=== PATIENT | male | born 1955 | race Caucasian/White ===

== ENCOUNTER 2021-11-20 11:31 | Inpatient (IN) | payer MEDICARE, SELFPAY ==
[2021-11-20] VITALS (8 sets, daily range): BP systolic 109–144; BP diastolic 41–90; PULSE 47–61; RESP 15–20; TEMP 36.4–36.7; O2SAT 87–99; BMI 35.4; BMI 37.5
--- NOTE | ~2021-11-20 | XR_ITS ---
EXAMINATION: XR CHEST CLINICAL INFORMATION: Dyspnea. COMPARISON: None TECHNIQUE: AP view of the chest was obtained. FINDINGS: A right IJ large bore likely dialysis catheter terminates in the region of the right atrium. The cardiomediastinal silhouette is slightly prominent. There is a moderate size right pleural effusion with associated right lower lobe airspace opacities. The left lung is clear. No pneumothorax. No acute osseous abnormalities. Postsurgical changes in the right shoulder. XR/XR chest 1V IMPRESSION: Moderate size right pleural effusion with associated airspace opacities in the right lower lobe likely representing compressive atelectasis. Although, aspiration and infiltrate cannot be entirely excluded.
--- NOTE | ~2021-11-20 | US_ITS ---
EXAMINATION: ULTRASOUND-GUIDED RIGHT THORACENTESIS CLINICAL INFORMATION: Right-sided PE with effusion. COMPARISON: 11/22/2021 and 11/20/2021 TECHNIQUE: Ultrasound-guided right thoracentesis. FINDINGS: Informed consent was obtained from the patient prior to the procedure. During this process, the procedure and potential alternatives were explained, along with the intended outcome and benefits. The risks of the procedure, as well as the risk of not doing the procedure, were discussed. The patient was given the opportunity to ask questions regarding the procedure and appeared competent to make medical decisions. A signed consent form which documents this discussion was placed in the medical record. Ultrasound of the right lung demonstrated a moderate size pleural effusion which is partially loculated with multiple septations present. Using ultrasound guidance a 5-Irish Yueh needle was placed into the right pleural space and a total of 650 mL of clear yellow fluid was removed with samples being sent for laboratory studies. Patient tolerated the procedure without difficulty. The procedure was stopped when patient complained of pleuritic pain. No immediate post procedure pneumothorax was present. US/US thoracentesis IMPRESSION: Ultrasound-guided right thoracentesis with removal of 650 mL of fluid.
--- NOTE | ~2021-11-20 | XR_ITS ---
EXAMINATION: XR chest 1V CLINICAL INFORMATION: Right thoracentesis COMPARISON: 11/20/2021 TECHNIQUE: Portable chest x-ray marked 10:15 AM Tubes and lines: Right IJ central line catheter tip projecting over the right atrium unchanged. Lungs and pleura: Redemonstration of right pleural effusion, slightly decreased, there is no pneumothorax. Mild prominence of the pulmonary vasculature. Probably atelectasis at right lung base. Heart and mediastinum: Stable. Bones/soft tissue: Skeletal structures included are normal for patient's age. XR/XR chest 1V IMPRESSION: Slightly decreased right pleural effusion, no pneumothorax. Other findings are stable include, mild congestion, platelike atelectasis at right lung base and right central line catheter remain in place unchanged.
--- NOTE | 2021-11-20 11:52 | ECG_ITS ---
Test Reason : DYSPNEA Blood Pressure : / mmHG Vent. Rate : 054 BPM Atrial Rate : 066 BPM P-R Int : 000 ms QRS Dur : 114 ms QT Int : 560 ms P-R-T Axes : 000 -13 134 degrees QTc Int : 531 ms [employer] Afib Frequent PVCs in [facility] patterm. Minimal voltage criteria for LVH, may be normal variant ( Marinette product ) Prolonged QT Abnormal ECG No previous ECGs available Referred By: Shahnaz Villalta Electronically Signed By:Gonzalo Christian
--- NOTE | 2021-11-20 11:54 | ED_ITS ---
HPI - SOB/Dyspnea General Chief Complaint: Dyspnea Stated Complaint: SOB ON EXERTION FROM DIALYSIS (COMPLETED) Time Seen by Provider: 11/20/21 11:52 Source: patient and old records reviewed Mode of arrival: EMS Limitations: no limitations History of Present Illness HPI Narrative: 66 yo male was treated for COVID back in September had complicated course - prostate cancer renal failure now on HD T S - for the 5 days increased WOB, HD found him 87% on RA, he reports 5 lb weight gain and HD reprots taking off adequate fluids. MD elicited complaint: shortness of breath Pertinent past history: other (COVID end of September at [facility] completed remdesivir) Onset (ago): day(s) (5) Context: recent illness Timing: progressively worsening Severity: moderate Exacerbating factors: exertion Relieving factors: oxygen and rest Known history of: congestive heart failure Associated symptoms: cough Treatment prior to arrival: oxygen Related Data Allergies Allergy/AdvReac Type Severity Reaction Status Date / Time allopurinol Allergy Rash Verified 11/20/21 11:41 Review of Systems Review of Systems: Constitutional : No Fever, No Chills ENT/Mouth : No sore throat, No Rhinorrhea, No Swallowing Difficulty Eyes: No Eye Pain, No Swelling, No Redness Cardiovascular : No Chest Pain, positive SOB, No Orthopnea, no Edema Respiratory : No Cough, No Sputum, No Wheezing, positive dyspnea Gastrointestinal : No Nausea, No Vomiting, No Diarrhea, No abdominal Pain, No Hematochezia, No Melena Genitourinary : No Dysuria, No Urinary Frequency, pos Hematuria Musculoskeletal : No joint pain, No Myalgias Skin : No Skin Lesions, No rash Neuro : No Weakness, No Numbness, No Dizziness, No Headache Psych : No Anxiety/Panic, No Depression Heme/Lymph: No Bruising, No Lymphadenopathy Endocrine : No Polyuria, No Polydipsia All other systems reviewed and are negative [facility] Past Medical History Medical History A-fib CAD (coronary artery disease) CHF (congestive heart failure) Chronic kidney disease (CKD) COVID-19 Diabetes Gout HTN (hypertension) Prostate CA Social History Social History (Updated 11/20/21 @ 12:14 by Shahnaz Villalta DO) Patient Tobacco Use Status: Tobacco use Unknown Advance Directives: Yes Advance Directives Information Provided: Yes Advance Directives on File: No Physical Exam Vital Signs: Vital Signs: Last Vital Signs Temp 98.1 F 11/20/21 12:43 Pulse 61 11/20/21 12:43 Resp 15 11/20/21 12:43 BP 136/90 H 11/20/21 12:43 Pulse Ox 98 11/20/21 12:43 BMI result Body Mass Index 35.4 Appearance: Alert. Oriented X3. No acute distress. Eyes: Pupils equal, round and reactive to light. Pale conjunctiva ENT: Pharynx normal. Neck: Normal inspection. Neck supple. CVS: irregular heart rate and rhythm. Pulses normal. Chest permacath site c/d/i Respiratory: No respiratory distress. Breath sounds decreased R lower base Abdomen: Soft and nontender. Skin: Skin warm and dry. pale skin color. Normal skin turgor. Extremities: No lower extremity edema. No calf ttp Neuro: Oriented X 3. No motor deficit. No sensory deficit. Course Course Course Narrative: R sided effusion start on cefepime given airspace disease H/H above baseline - increase in WBC count, increased dyspnea had effusion noted back in September during COVID no xrays noted since then. MDM - SOB/Dyspnea MDM Narrative Medical decision making narrative: 66 yo male with CKD on HD T S, COVID Sep 2021 vaccinated x 2 now, at this time he reports 5 days of increased shortness of breath 5lb weight gain though no signs of LE edema he is pale will obtain labs, EKG, CXR for pneumonia, H/H for anemia, dispo per results and findings. doubt PE patient is anticoagulated Lab Data Result diagrams: 11/20/21 12:18 11/20/21 12:18 Labs: Lab Results 11/20/21 11/20/21 11/20/21 Range/Units 11:59 12:18 12:18 WBC 12.5 H (4.8-10.8) X10*3/uL RBC 2.39 L (4.60-5.80) X10*6/uL Hgb 7.7 L (14.0-18.0) g/dl Hct 25.0 L (42.0-52.0) % MCV 104.6 H (80.0-98.0) fL MCH 32.2 (27.0-33.0) pg MCHC 30.8 L (31.0-36.0) g/dl RDW 19.3 H (11.0-16.0) % Plt Count 329 D (160-400) X10*3/uL MPV 8.9 L (9.4-12.4) fL Immature Gran % (Auto) 0.6 H (0.0-0.4) % Neut % (Auto) 83.0 H (45-73) % Lymph % (Auto) 7.2 L (20-40) % [place] % (Auto) 7.2 (2-11) % Eos % (Auto) 1.4 (0-4) % Baso % (Auto) 0.6 (0-2) % Lymph # (Auto) 0.9 L (1.2-4.9) X10*3/uL [place] # (Auto) 0.9 (0.1-1.2) X10*3/uL Eos # (Auto) 0.2 (0.0-0.4) X10*3/uL Baso # (Auto) 0.1 (0.0-0.2) X10*3/uL Abs Immat Gran (auto) 0.08 H (0.00-0.03) X10*3/uL Absolute Neuts (auto) 10.4 H (2.0-8.3) x10*3/uL Absolute Nucleated RBC 0.000 (0.0-0.012) X10*3/uL Nucleated RBC % (auto) 0.0 (0.0-0.2) /100WBC PT (9.9-13.0) SEC INR (0.9-1.1) APTT (24.1-38.0) SEC Sodium 136 (135-145) mmol/L Potassium 4.3 (3.3-5.1) mmol/L Chloride 98 (96-108) mmol/L Carbon Dioxide 30 H (22-29) mmol/L Anion Gap 12 (12-20) BUN 12 D (9-16) mg/dL Creatinine 1.86 H (0.5-1.4) mg/dL Estim Creat Clear Calc 40.0 Estimated GFR 37 Random Glucose 116 H D (60-115) mg/dL Lactic Acid (0.5-2.0) mmol/L Calcium 9.0 D (8.4-10.2) mg/dL Magnesium 2.1 (1.6-2.6) mg/dL Total Bilirubin 0.5 (0.0-1.0) mg/dL Direct Bilirubin 0.2 (0.0-0.5) mg/dL AST 16 D (5-37) U/L ALT 11 (0-40) U/L Alkaline Phosphatase 84 D (39-117) U/L Troponin I High Sens (<3.5-35.0) ng/L B-Natriuretic Peptide (<100) pg/mL Total Protein 7.6 D (6.5-8.0) g/dL Albumin 3.1 L D (3.5-5.0) g/dL COVID-19 (LOPEZ) Negative (Negative) COVID-19 Clin Com See Note 11/20/21 11/20/21 11/20/21 Range/Units 12:18 12:25 12:25 WBC (4.8-10.8) X10*3/uL RBC (4.60-5.80) X10*6/uL Hgb (14.0-18.0) g/dl Hct (42.0-52.0) % MCV (80.0-98.0) fL MCH (27.0-33.0) pg MCHC (31.0-36.0) g/dl RDW (11.0-16.0) % Plt Count (160-400) X10*3/uL MPV (9.4-12.4) fL Immature Gran % (Auto) (0.0-0.4) % Neut % (Auto) (45-73) % Lymph % (Auto) (20-40) % Appling % (Auto) (2-11) % Eos % (Auto) (0-4) % Baso % (Auto) (0-2) % Lymph # (Auto) (1.2-4.9) X10*3/uL [place] # (Auto) (0.1-1.2) X10*3/uL Eos # (Auto) (0.0-0.4) X10*3/uL Baso # (Auto) (0.0-0.2) X10*3/uL Abs Immat Gran (auto) (0.00-0.03) X10*3/uL Absolute Neuts (auto) (2.0-8.3) x10*3/uL Absolute Nucleated RBC (0.0-0.012) X10*3/uL Nucleated RBC % (auto) (0.0-0.2) /100WBC PT 14.7 H (9.9-13.0) SEC INR 1.3 H (0.9-1.1) APTT 42.4 H (24.1-38.0) SEC Sodium (135-145) mmol/L Potassium (3.3-5.1) mmol/L Chloride (96-108) mmol/L Carbon Dioxide (22-29) mmol/L Anion Gap (12-20) BUN (9-16) mg/dL Creatinine (0.5-1.4) mg/dL Estim Creat Clear Calc Estimated GFR Random Glucose (60-115) mg/dL Lactic Acid 1.6 (0.5-2.0) mmol/L Calcium (8.4-10.2) mg/dL Magnesium (1.6-2.6) mg/dL Total Bilirubin (0.0-1.0) mg/dL Direct Bilirubin (0.0-0.5) mg/dL AST (5-37) U/L ALT (0-40) U/L Alkaline Phosphatase (39-117) U/L Troponin I High Sens (<3.5-35.0) ng/L B-Natriuretic Peptide 793 H (<100) pg/mL Total Protein (6.5-8.0) g/dL Albumin (3.5-5.0) g/dL COVID-19 (LOPEZ) (Negative) COVID-19 Clin Com 11/20/21 Range/Units 12:25 WBC (4.8-10.8) X10*3/uL RBC (4.60-5.80) X10*6/uL Hgb (14.0-18.0) g/dl Hct (42.0-52.0) % MCV (80.0-98.0) fL MCH (27.0-33.0) pg MCHC (31.0-36.0) g/dl RDW (11.0-16.0) % Plt Count (160-400) X10*3/uL MPV (9.4-12.4) fL Immature Gran % (Auto) (0.0-0.4) % Neut % (Auto) (45-73) % Lymph % (Auto) (20-40) % Appling % (Auto) (2-11) % Eos % (Auto) (0-4) % Baso % (Auto) (0-2) % Lymph # (Auto) (1.2-4.9) X10*3/uL [place] # (Auto) (0.1-1.2) X10*3/uL Eos # (Auto) (0.0-0.4) X10*3/uL Baso # (Auto) (0.0-0.2) X10*3/uL Abs Immat Gran (auto) (0.00-0.03) X10*3/uL Absolute Neuts (auto) (2.0-8.3) x10*3/uL Absolute Nucleated RBC (0.0-0.012) X10*3/uL Nucleated RBC % (auto) (0.0-0.2) /100WBC PT (9.9-13.0) SEC INR (0.9-1.1) APTT (24.1-38.0) SEC Sodium (135-145) mmol/L Potassium (3.3-5.1) mmol/L Chloride (96-108) mmol/L Carbon Dioxide (22-29) mmol/L Anion Gap (12-20) BUN (9-16) mg/dL Creatinine (0.5-1.4) mg/dL Estim Creat Clear Calc Estimated GFR Random Glucose (60-115) mg/dL Lactic Acid (0.5-2.0) mmol/L Calcium (8.4-10.2) mg/dL Magnesium (1.6-2.6) mg/dL Total Bilirubin (0.0-1.0) mg/dL Direct Bilirubin (0.0-0.5) mg/dL AST (5-37) U/L ALT (0-40) U/L Alkaline Phosphatase (39-117) U/L Troponin I High Sens 20.3 (<3.5-35.0) ng/L B-Natriuretic Peptide (<100) pg/mL Total Protein (6.5-8.0) g/dL Albumin (3.5-5.0) g/dL COVID-19 (LOPEZ) (Negative) COVID-19 Clin Com ECG Data Attestation: I personally reviewed and interpreted this ECG as follows: ECG interpretation date: 11/20/21 ECG interpretation time: 12:45 Interpretation: Rate: 54 Rhythm: afib with frequent PVCs [place]: normal Normal P waves. Normal NIRALI. Normal QRS complex. ST T wave : nonspecific no JOCELYNE qTC: prolonged prior studies: no prior The study has been interpreted contemporaneously by me. . Discharge Plan Discharge Clinical Impression: Pleural effusion Anemia Qualifiers: Anemia type: due to chronic kidney disease Chronic kidney disease stage: on chronic dialysis Qualified Code(s): N18.6 - End stage renal disease Pneumonia Qualifiers: Pneumonia type: due to unspecified organism Laterality: right Lung location: lower lobe of lung Qualified Code(s): J18.9 - Pneumonia, unspecified organism Patient Disposition: Admitted As Inpatient
[2021-11-20 12:22] LABS: COVID-19 Test Negative (Negative)
[2021-11-20 12:23] LABS: MANUAL DIFF FLAG NO
[2021-11-20 12:27] LABS: Basophils Absolute Auto 0.1 X10*3/uL (0.0-0.2); Basophils Percent Auto 0.6 % (0-2); Eosinophils Absolute Auto 0.2 X10*3/uL (0.0-0.4); Eosinophils Percent Auto 1.4 % (0-4); Hemoglobin 7.7 g/dl (14.0-18.0); Imm Gran Abs Auto 0.08 X10*3/uL (0.00-0.03); Imm Gran Pct Auto 0.6 % (0.0-0.4); Lymphocytes Absolute Auto 0.9 X10*3/uL (1.2-4.9); Lymphocytes Percent Auto 7.2 % (20-40); Mean Corpuscular HGB Conc 30.8 g/dl (31.0-36.0); Mean Corpuscular Hemoglobin 32.2 pg (27.0-33.0); Mean Corpuscular Volume 104.6 fL (80.0-98.0); Mean Platelet Volume 8.9 fL (9.4-12.4); Monocytes Absolute Auto 0.9 X10*3/uL (0.1-1.2); Monocytes Percent Auto 7.2 % (2-11); Neutrophils Absolute Auto 10.4 x10*3/uL (2.0-8.3); Platelet Count 329 X10*3/uL (160-400); Red Blood Count 2.39 X10*6/uL (4.60-5.80); Red Cell Distribution Width 19.3 % (11.0-16.0); White Blood Count 12.5 X10*3/uL (4.8-10.8)
[2021-11-20 12:35] LABS: INTERNATIONAL NORM RATIO 1.3 (0.9-1.1); Prothrombin Time 14.7 SEC (9.9-13.0)
[2021-11-20 12:37] LABS: Partial Thromboplastin Time 42.4 SEC (24.1-38.0)
[2021-11-20 12:44] LABS: Alanine Aminotransferase 11 U/L (0-40); Albumin Level 3.1 g/dL (3.5-5.0); Alkaline Phosphatase 84 U/L (39-117); Anion Gap 12 (12-20); Aspartate Amino Transferase 16 U/L (5-37); Bilirubin Direct 0.2 mg/dL (0.0-0.5); Bilirubin Total 0.5 mg/dL (0.0-1.0); Blood Urea Nitrogen 12 mg/dL (9-16); Carbon Dioxide 30 mmol/L (22-29); Chloride 98 mmol/L (96-108); Estimated Glomerular Filt Rate 37; Glucose Random 116 mg/dL (60-115); Magnesium 2.1 mg/dL (1.6-2.6); Potassium 4.3 mmol/L (3.3-5.1); Sodium 136 mmol/L (135-145); Total Protein 7.6 g/dL (6.5-8.0)
[2021-11-20 12:45] LABS: Lactic Acid 1.6 mmol/L (0.5-2.0)
[2021-11-20 12:51] LABS: B Type Natriuretic Peptide 793 pg/mL (<100); Troponin-I High Sensitivity 20.3 ng/L (<3.5-35.0)
--- NOTE | 2021-11-20 13:32 | PHA.MEDREC ---
Pharmacy Consult ? Medication Reconciliation Pharmacy has completed the medication reconciliation. Spoke with patient's nurse Lashaun Juan [phone] who has able to confirm all patient medications. An gutiérrez, PharmD
--- NOTE | 2021-11-20 13:33 | PC.NURSE ---
Update to [facility]asha[facility] [phone]
[2021-11-20] MEDS: cefEPime HCl 2 GM in 0.9 % Sodium Chloride 50 ML IV (13:53)
--- NOTE | 2021-11-20 13:53 | PC.NURSE ---
no complaints. aware of plan of care. skin pwd. plan is for admission and IR tomorrow. unlabroed resp.
--- NOTE | 2021-11-20 15:35 | P.HPHOSP_ITS ---
History of Present Illness Date of Service: 11/20/21 Chief Complaint: shortness of breath a 66 years old male with PMH of AFib, CAD, CHF, ESRD on HD who presents to the hospital with a complaint of shortness of breath for the last 5 days. He is reporting that he has dyspnea on exertion associated with chest tightness. Denies any palpitation, chest pain, nausea or vomiting or change in bowel habit. He reports he is doing dialysis 3 times TTS as he went in earlier today and they removed extra fluids but after walking few steps he fell the dyspnea again and decided to come to the hospital for further evaluation. The emergency an x-ray was significant for moderate-size pleural effusion the right size with associated atelectasis. Denies any fever, chills or cough. Admitted for further evaluation and treatment. Review of Systems Review of Systems: No fever, chills or weakness No chest pain, palpitation Shortness of breath with ambulation No abdominal pain, nausea or vomiting No urinary symptoms No any rash or wounds PMFSH Medical History A-fib CAD (coronary artery disease) CHF (congestive heart failure) Chronic kidney disease (CKD) COVID-19 Diabetes Gout HTN (hypertension) Prostate CA Pertinent family history: HTN in mother Social History Alcohol intake: never Patient Tobacco Use Status: Tobacco use Unknown Use of substances other than those prescribed or required for medical reasons: No Advance Directives: Yes Advance Directives Information Provided: Yes Advance Directives on File: No Meds Allergies Allergy/AdvReac Type Severity Reaction Status Date / Time allopurinol Allergy Rash Verified 11/20/21 11:41 Active Medications: Current Medications Acetaminophen (Acetaminophen 325 Mg Tablet) 650 mg PO Q6H PRN PRN Reason: Pain, Mild (Pain Scale 1-3) Albuterol Sulfate (Albuterol Sulfate 90 Mcg 8 Gm Inhaler) 2 puff INHALE Q6H PRN PRN Reason: Wheezing Amlodipine Besylate (Amlodipine Besylate 2.5 Mg Tablet) 7.5 mg PO DAILY MARCOS; Protocol Cyanocobalamin (Cyanocobalamin (Vitamin B-12) 1,000 Mcg Tablet) 1,000 mcg PO DAILY [facility]OS Duloxetine HCl (Duloxetine Hcl 20 Mg Capsule.) 20 mg PO DAILY [facility] Enoxaparin Sodium (Enoxaparin Sodium 40 Mg/0.4 Ml Syringe) 45 mg SUBCUT Q12H [facility] Insulin Human Lispro (Insulin Lispro 100 Unit/Ml 3 Ml Vial) 0 unit SUBCUT QIDACHS [facility]; Protocol Multivitamins/Vitamin C (Multivitamin Tablet) 1 tab PO DAILY [facility] Ondansetron HCl (Ondansetron Hcl 4 Mg/2 Ml Vial) 4 mg IVPUSH Q8H PRN PRN Reason: Nausea and Vomiting Pharmacy Consult (Consult Rx Perform Med Rec) 1 each MISCELLANE ONCE PRN PRN Reason: Consult order Senna (Sennosides 8.6 Mg Tablet) 8.6 mg PO DAILY [facility] Sevelamer Carbonate (Sevelamer Carbonate Tablet 800 Mg Tablet) 1,600 mg PO TID [facility] Sodium Chloride (0.9 % Sodium Chloride Flush 3 Ml Syringe) 3 ml IVFLUSH QSHIFT [facility] Home Medications Medication Instructions Recorded Confirmed Last Taken Type acetaminophen 325 mg tablet 650 mg PO Q6H PRN 11/20/21 11/20/21 11/19/21 History albuterol sulfate 90 mcg/actuation 2 puff INHALATION Q6H PRN 11/20/21 11/20/21 11/19/21 History aerosol inhaler (ProAir HFA) amlodipine 5 mg tablet 7.5 mg PO DAILY 11/20/21 11/20/21 11/19/21 History apixaban 2.5 mg tablet (Eliquis) 2.5 mg PO BID 11/20/21 11/20/21 11/19/21 History cholecalciferol (vitamin D3) 1,250 1 cap PO SA 11/20/21 11/20/21 11/19/21 History mcg (50,000 unit) capsule cyanocobalamin (vitamin B-12) 1,000 mcg PO DAILY 11/20/21 11/20/21 11/19/21 History 1,000 mcg tablet duloxetine 20 mg capsule,delayed 20 mg PO DAILY 11/20/21 11/20/21 11/19/21 History release (Cymbalta) febuxostat 40 mg tablet (Uloric) 40 mg PO DAILY 11/20/21 11/20/21 11/19/21 History insulin lispro 100 unit/mL 1 sliding scale dose SUBCUT 11/20/21 11/20/21 11/19/21 History subcutaneous pen USEASDIRECTD sennosides 8.6 mg tablet (senna) 8.6 mg PO DAILY 11/20/21 11/20/21 11/19/21 History sevelamer carbonate 800 mg tablet 1,600 mg PO TID 11/20/21 11/20/21 11/19/21 History vitamin B complex and vitamin C 1 cap PO DAILY 11/20/21 11/20/21 11/19/21 History no.20-folic acid 1 mg capsule Physical Exam Vital Signs and Narrative: Vital Signs: Last Vital Signs Temp 97.9 F 11/20/21 15:09 Pulse 47 L 11/20/21 15:09 Resp 18 11/20/21 15:09 BP 130/41 L 11/20/21 15:09 Pulse Ox 91 L 11/20/21 14:20 BMI result Body Mass Index 35.4 Const: Other: Constitutional : Alert, oriented, not in distress Neck : Normal inspection, Supple Cardiovascular : RRR, S1 S2, no lower extremity edema Respiratory : good air entry bilaterally but decreased in the right lower lung with dullness on percussion Gastrointestinal: soft, lax, Normal bowel sounds, Non tender Skin : Warm, Dry, dialysis catheter on the chest wall with no surrounding erythema Neurological : Alert & oriented x3, No focal deficit Results Labs CBC and Chem 7: 11/20/21 12:18 11/20/21 12:18 Labs: Laboratory Results - last 24 hr 11/20/21 11/20/21 11/20/21 11:59 12:18 12:18 MCV 104.6 H MCH 32.2 MCHC 30.8 L RDW 19.3 H Plt Count 329 D MPV 8.9 L Immature Gran % (Auto) 0.6 H Neut % (Auto) 83.0 H Lymph % (Auto) 7.2 L [place] % (Auto) 7.2 Eos % (Auto) 1.4 Baso % (Auto) 0.6 Lymph # (Auto) 0.9 L [place] # (Auto) 0.9 Eos # (Auto) 0.2 Baso # (Auto) 0.1 Abs Immat Gran (auto) 0.08 H Absolute Neuts (auto) 10.4 H Absolute Nucleated RBC 0.000 Nucleated RBC % (auto) 0.0 PT INR APTT Anion Gap 12 Estim Creat Clear Calc 40.0 Estimated GFR 37 Random Glucose 116 H D Lactic Acid Calcium 9.0 D Magnesium 2.1 Total Bilirubin 0.5 Direct Bilirubin 0.2 AST 16 D ALT 11 Alkaline Phosphatase 84 D Troponin I High Sens B-Natriuretic Peptide Total Protein 7.6 D Albumin 3.1 L D COVID-19 ([facility]OPE[facility]) Negative COVID-19 Clin Com See Note Blood Type Antibody Screen 11/20/21 11/20/21 11/20/21 12:18 12:25 12:25 MCV MCH MCHC RDW Plt Count MPV Immature Gran % (Auto) Neut % (Auto) Lymph % (Auto) [place] % (Auto) Eos % (Auto) Baso % (Auto) Lymph # (Auto) [place] # (Auto) Eos # (Auto) Baso # (Auto) Abs Immat Gran (auto) Absolute Neuts (auto) Absolute Nucleated RBC Nucleated RBC % (auto) PT 14.7 H INR 1.3 H APTT 42.4 H Anion Gap Estim Creat Clear Calc Estimated GFR Random Glucose Lactic Acid 1.6 Calcium Magnesium Total Bilirubin Direct Bilirubin AST ALT Alkaline Phosphatase Troponin I High Sens B-Natriuretic Peptide 793 H Total Protein Albumin COVID-19 (LOPEZ) COVID-19 Clin Com Blood Type Antibody Screen 11/20/21 11/20/21 12:25 12:58 MCV MCH MCHC RDW Plt Count MPV Immature Gran % (Auto) Neut % (Auto) Lymph % (Auto) [place] % (Auto) Eos % (Auto) Baso % (Auto) Lymph # (Auto) [place] # (Auto) Eos # (Auto) Baso # (Auto) Abs Immat Gran (auto) Absolute Neuts (auto) Absolute Nucleated RBC Nucleated RBC % (auto) PT INR APTT Anion Gap Estim Creat Clear Calc Estimated GFR Random Glucose Lactic Acid Calcium Magnesium Total Bilirubin Direct Bilirubin AST ALT Alkaline Phosphatase Troponin I High Sens 20.3 B-Natriuretic Peptide Total Protein Albumin COVID-19 (LOPEZ) COVID-19 Clin Com Blood Type A Positive Antibody Screen NEGATIVE Imaging Radiologist's Impressions: Impressions Chest X-Ray 11/20/21 12:03 IMPRESSION: Moderate size right pleural effusion with associated airspace opacities in the right lower lobe likely representing compressive atelectasis. Although, aspiration and infiltrate cannot be entirely excluded. Assessment and Plan (1) Pleural effusion: Status: Acute (2) Pneumonia: Qualifiers: Laterality: right Lung location: lower lobe of lung Pneumonia type: due to unspecified organism Qualified Code(s): J18.9 - Pneumonia, unspecified organism Status: Acute (3) Atelectasis: Status: Acute a 66 years old male with PMH of AFib, CAD, CHF, ESRD on HD who presents to the hospital with a complaint of shortness of breath for the last 5 days. Atelectasis, pneumonia 2/2 Pleural effusion Likely a result of renal failure and building up fluids Had dialysis done earlier this morning Started IV antibiotics To do thoracentesis Wednesday morning O2 supplement as needed ESRD on HD get Nephrology evaluation for HD consider extra HD for the pleural effusion diabetes Insulin, diabetic diet history of atrial fibrillation on Eliquis, to hold To use Lovenox or heparin for coverage HTN continue amlodipine DVT PPX Lovenox Quality Stroke Does the patient have a stroke diagnosis?: No VTE Prior VTE?: No VTE Risk Level:: Medical - moderate - high VTE Device Contraindication: Treatment Not Indicated VTE Drug Contraindication: N/A - Med Ordered
--- NOTE | 2021-11-20 15:42 | PC.NURSE ---
Dr. cMlean contacted this blurb writer seeking assistance with coordination of care related to lung effusion drainage. This blurb writer contacted Aimee Forman, Floor Plan Adjuster. Radiologist Dr. Jean reviewed patient's case and determined patient will need a thoracenthesis to treat lung effusion. Pt is known to be on Eliquis which was stopped with the 48 hour hang set to be 11/21/[address] Lee will plan to perform an ultrasound guided thoracenthesis the am of 11/22/21 with [place] orthopedic tech. Pt is booked for case. Will notify Dr. Mclean of plan.
[2021-11-20 17:27] LABS: INTERNATIONAL NORM RATIO 1.3 (0.9-1.1); Prothrombin Time 14.7 SEC (9.9-13.0)
[2021-11-20 17:30] LABS: PTT Heparin Drip 46.5 SEC (53-77.9)
--- NOTE | 2021-11-20 17:32 | PC.NURSE ---
iv infiltrated. abx had stopped. new line established and abx continues. pt has no complaints at this time. resting comfortably. transfered to hospital bed.
[2021-11-20] MEDS: Azithromycin 500 MG in 0.9 % Sodium Chloride 250 ML 125 MG IV (17:40)
[2021-11-20 18:28] LABS: Glucose, Whole Blood 100 mg/dL (60-115)
--- NOTE | 2021-11-20 18:37 | PC.NURSE ---
rn to rn with Disha on [facility]
[2021-11-20] MEDS: Heparin Sodium,Porcine/1/2NS 25,000 UNIT/250 ML IV.SOLN 12.73 UNIT IVCONT (18:57)
[2021-11-20 19:49] LABS: Glucose, Whole Blood 212 mg/dL (60-115)
[2021-11-20] MEDS: Insulin Lispro 100 UNIT/ML 3 ML VIAL SUBCUT (20:39)
[2021-11-20] MEDS: Sevelamer Carbonate Tablet 800 MG TABLET 1600 MG PO (20:39)
[2021-11-21] VITALS (8 sets, daily range): BP systolic 116–144; BP diastolic 56–65; PULSE 43–58; RESP 18–28; TEMP 36.6–37.3; O2SAT 95–99; BMI 37.5
[2021-11-21] MEDS: 0.9 % Sodium Chloride Flush 3 ML SYRINGE IVFLUSH ×4 (00:23→21:11)
[2021-11-21 01:26] LABS: PTT Heparin Drip 55.9 SEC (53-77.9)
[2021-11-21 07:33] LABS: Glucose, Whole Blood 83 mg/dL (60-115)
[2021-11-21 07:45] LABS: INTERNATIONAL NORM RATIO 1.2 (0.9-1.1); Prothrombin Time 14.2 SEC (9.9-13.0)
[2021-11-21 07:48] LABS: PTT Heparin Drip 44.3 SEC (53-77.9)
[2021-11-21 08:05] LABS: Anion Gap 15 (12-20); Blood Urea Nitrogen 36 mg/dL (9-16); Calcium 8.4 mg/dL (8.4-10.2); Carbon Dioxide 27 mmol/L (22-29); Chloride 101 mmol/L (96-108); Creatinine Clr Calc Pharmacy 19.1; Estimated Glomerular Filt Rate 15; Glucose Random 89 mg/dL (60-115); Potassium 4.6 mmol/L (3.3-5.1); Sodium 138 mmol/L (135-145)
[2021-11-21] MEDS: Heparin Sodium,Porcine 5,000 UNIT/ML VIAL 3600 UNIT IVPUSH (08:18)
[2021-11-21] MEDS: DULoxetine HCl 20 MG CAPSULE.DR PO (09:13)
[2021-11-21] MEDS: Sennosides 8.6 MG TABLET PO (09:13)
[2021-11-21] MEDS: Multivitamin TABLET 1 TAB PO (09:13)
[2021-11-21] MEDS: amLODIPine Besylate 2.5 MG TABLET 7.5 MG PO (09:13)
[2021-11-21] MEDS: Sevelamer Carbonate Tablet 800 MG TABLET 1600 MG PO ×3 (09:13→21:10)
[2021-11-21] MEDS: Cyanocobalamin (Vitamin B-12) 1,000 MCG TABLET 1000 MCG PO (09:13)
--- NOTE | 2021-11-21 10:40 | PC.NURSE ---
Skin/wound assessment completed today. Patient has stage 2 pressure injuries to coccyx and left buttocks. Cleanse with normal saline, Triad applied and covered with foam dressing. Triad also applied to redness around anus and in groin. No other skin issues noted at this time.
--- NOTE | 2021-11-21 11:03 | HO.PM.IMPN ---
Subjective Subjective Date of Service: 11/21/21 Interval History: the patient was seen and evaluated this morning Laying in bed, Still complaining of dyspnea on exertion Next dialysis tomorrow Denies any fever, chills or chest pain No reported other overnight events. Review of Systems No fever, chills or weakness No chest pain, palpitation Shortness of breath with ambulation No abdominal pain, nausea or vomiting No urinary symptoms No any rash or wounds Physical Exam Vital Signs: Vital Signs: Last Vital Signs Temp 98.4 F 11/21/21 07:00 Pulse 48 L 11/21/21 07:00 Resp 20 11/21/21 07:00 BP 117/56 L 11/21/21 07:00 Pulse Ox 96 11/21/21 07:00 BMI result Body Mass Index 37.5 Const: Other: Constitutional : Alert, oriented, not in distress Neck : Normal inspection, Supple Cardiovascular : RRR, S1 S2, no lower extremity edema Respiratory : good air entry bilaterally but decreased in the right lower lung with dullness on percussion Gastrointestinal: soft, lax, Normal bowel sounds, Non tender Skin : Warm, Dry, dialysis catheter on the chest wall with no surrounding erythema Neurological : Alert & oriented x3, No focal deficit Objective Data Active Medications Acetaminophen (Acetaminophen 325 Mg Tablet) 650 mg PO Q6H PRN PRN Reason: Pain, Mild (Pain Scale 1-3) Albuterol Sulfate (Albuterol Sulfate 90 Mcg 8 Gm Inhaler) 2 puff INHALE Q6H PRN PRN Reason: Wheezing Amlodipine Besylate (Amlodipine Besylate 2.5 Mg Tablet) 7.5 mg PO DAILY [facility]; Protocol Last Admin: 11/21/21 09:13 Dose: 7.5 mg Documented by: DEIRDRE Cyanocobalamin (Cyanocobalamin (Vitamin B-12) 1,000 Mcg Tablet) 1,000 mcg PO DAILY [facility] Last Admin: 11/21/21 09:13 Dose: 1,000 mcg Documented by: DEIRDRE Duloxetine HCl (Duloxetine Hcl 20 Mg Capsule.) 20 mg PO DAILY [facility] Last Admin: 11/21/21 09:13 Dose: 20 mg Documented by: DEIRDER Heparin Sodium (Porcine) (Heparin Sodium,Porcine 5,000 Unit/Ml Vial) 3,600 unit 40 unit/kg (3600 unit) IVPUSH PROTOCOL BOLUS PRN; Protocol PRN Reason: 40 unit/kg - Heparin Protocol Last Admin: 11/21/21 08:18 Dose: 3,600 unit Documented by: DEIRDRE Heparin Sodium (Porcine) (Heparin Sodium,Porcine 5,000 Unit/Ml Vial) 7,300 unit 80 unit/kg (7300 unit) IVPUSH PROTOCOL BOLUS PRN; Protocol PRN Reason: 80 unit/kg - Heparin Protocol Azithromycin 500 mg/ Sodium (Chloride) 250 mls @ 125 mls/hr IV Q24H [facility] Last Infusion: 11/20/21 20:00 Dose: 0 mls/hr Documented by: VICTOR MANUEL Ceftriaxone Sodium 1 gm/ (Sodium Chloride) 50 mls @ 100 mls/hr IV Q24H [facility] Heparin Sodium/Sodium Chloride () 25,000 unit in 250 mls @ 0 mls/hr IVCONT .Q0M [facility]; Protocol Stop: 11/22/21 10:00 Last Titration: 11/21/21 08:18 Dose: 16 units/kg/hr, 14.54 mls/hr Documented by: DEIRDRE Cosigned by: JULIAN Insulin Human Lispro (Insulin Lispro 100 Unit/Ml 3 Ml Vial) 0 unit SUBCUT QIDACHS [facility]; Protocol Last Admin: 11/21/21 08:08 Dose: Not Given Documented by: DEIRDRE Non-Admin Reason: No Insulin Coverage Multivitamins/Vitamin C (Multivitamin Tablet) 1 tab PO DAILY [facility] Last Admin: 11/21/21 09:13 Dose: 1 tab Documented by: DEIRDRE Ondansetron HCl (Ondansetron Hcl 4 Mg/2 Ml Vial) 4 mg IVPUSH Q8H PRN PRN Reason: Nausea and Vomiting Pharmacy Consult (Consult Rx Perform Med Rec) 1 each MISCELLANE ONCE PRN PRN Reason: Consult order Senna (Sennosides 8.6 Mg Tablet) 8.6 mg PO DAILY [facility] Last Admin: 11/21/21 09:13 Dose: 8.6 mg Documented by: DEIRDRE Sevelamer Carbonate (Sevelamer Carbonate Tablet 800 Mg Tablet) 1,600 mg PO TID [facility] Last Admin: 11/21/21 09:13 Dose: 1,600 mg Documented by: DEIRDRE Sodium Chloride (0.9 % Sodium Chloride Flush 3 Ml Syringe) 3 ml IVFLUSH QSHIFT [facility] Last Admin: 11/21/21 09:13 Dose: 3 ml Documented by: DEIRDRE Labs CBC & Chem 7: 11/20/21 12:18 11/21/21 07:07 Labs: Laboratory Results - last 24 hr 11/20/21 11/20/21 11/20/21 11:59 12:18 12:18 MCV 104.6 H MCH 32.2 MCHC 30.8 L RDW 19.3 H Plt Count 329 D MPV 8.9 L Immature Gran % (Auto) 0.6 H Neut % (Auto) 83.0 H Lymph % (Auto) 7.2 L Burnet % (Auto) 7.2 Eos % (Auto) 1.4 Baso % (Auto) 0.6 Lymph # (Auto) 0.9 L Burnet # (Auto) 0.9 Eos # (Auto) 0.2 Baso # (Auto) 0.1 Abs Immat Gran (auto) 0.08 H Absolute Neuts (auto) 10.4 H Absolute Nucleated RBC 0.000 Nucleated RBC % (auto) 0.0 PT INR APTT PTT (Heparin Protocol) Anion Gap 12 Estim Creat Clear Calc 40.0 Estimated GFR 37 POC Glucose Random Glucose 116 H D Lactic Acid Calcium 9.0 D Magnesium 2.1 Total Bilirubin 0.5 Direct Bilirubin 0.2 AST 16 D ALT 11 Alkaline Phosphatase 84 D Troponin I High Sens B-Natriuretic Peptide Total Protein 7.6 D Albumin 3.1 L D COVID-19 ([facility]) Negative COVID-19 Clin Com See Note Blood Type Antibody Screen 11/20/21 11/20/21 11/20/21 12:18 12:25 12:25 MCV MCH MCHC RDW Plt Count MPV Immature Gran % (Auto) Neut % (Auto) Lymph % (Auto) Burnet % (Auto) Eos % (Auto) Baso % (Auto) Lymph # (Auto) Burnet # (Auto) Eos # (Auto) Baso # (Auto) Abs Immat Gran (auto) Absolute Neuts (auto) Absolute Nucleated RBC Nucleated RBC % (auto) PT 14.7 H INR 1.3 H APTT 42.4 H PTT (Heparin Protocol) Anion Gap Estim Creat Clear Calc Estimated GFR POC Glucose Random Glucose Lactic Acid 1.6 Calcium Magnesium Total Bilirubin Direct Bilirubin AST ALT Alkaline Phosphatase Troponin I High Sens B-Natriuretic Peptide 793 H Total Protein Albumin COVID-19 ([facility]) COVID-19 [facility] Blood Type Antibody Screen 11/20/21 11/20/21 11/20/21 12:25 12:58 17:17 MCV MCH MCHC RDW Plt Count MPV Immature Gran % (Auto) Neut % (Auto) Lymph % (Auto) Burnet % (Auto) Eos % (Auto) Baso % (Auto) Lymph # (Auto) Burnet # (Auto) Eos # (Auto) Baso # (Auto) Abs Immat Gran (auto) Absolute Neuts (auto) Absolute Nucleated RBC Nucleated RBC % (auto) PT 14.7 H INR 1.3 H APTT PTT (Heparin Protocol) 46.5 L Anion Gap Estim Creat Clear Calc Estimated GFR POC Glucose Random Glucose Lactic Acid Calcium Magnesium Total Bilirubin Direct Bilirubin AST ALT Alkaline Phosphatase Troponin I High Sens 20.3 B-Natriuretic Peptide Total Protein Albumin COVID-19 ([facility]) [facility] Blood Type A Positive Antibody Screen NEGATIVE 11/20/21 11/20/21 11/21/21 18:23 19:45 00:59 MCV MCH MCHC RDW Plt Count MPV Immature Gran % (Auto) Neut % (Auto) Lymph % (Auto) Burnet % (Auto) Eos % (Auto) Baso % (Auto) Lymph # (Auto) Burnet # (Auto) Eos # (Auto) Baso # (Auto) Abs Immat Gran (auto) Absolute Neuts (auto) Absolute Nucleated RBC Nucleated RBC % (auto) PT INR APTT PTT (Heparin Protocol) 55.9 D Anion Gap Estim Creat Clear Calc Estimated GFR POC Glucose 100 212 H Random Glucose Lactic Acid Calcium Magnesium Total Bilirubin Direct Bilirubin AST ALT Alkaline Phosphatase Troponin I High Sens B-Natriuretic Peptide Total Protein Albumin COVID-19 ([facility]) COVID-19 [facility] Blood Type Antibody Screen 11/21/21 11/21/21 11/21/21 07:07 07:07 07:07 MCV MCH MCHC RDW Plt Count MPV Immature Gran % (Auto) Neut % (Auto) Lymph % (Auto) Burnet % (Auto) Eos % (Auto) Baso % (Auto) Lymph # (Auto) Burnet # (Auto) Eos # (Auto) Baso # (Auto) Abs Immat Gran (auto) Absolute Neuts (auto) Absolute Nucleated RBC Nucleated RBC % (auto) PT 14.2 H INR 1.2 H APTT PTT (Heparin Protocol) 44.3 L D Anion Gap 15 Estim Creat Clear Calc 19.1 Estimated GFR 15 POC Glucose Random Glucose 89 Lactic Acid Calcium 8.4 D Magnesium Total Bilirubin Direct Bilirubin AST ALT Alkaline Phosphatase Troponin I High Sens B-Natriuretic Peptide Total Protein Albumin COVID-19 ([facility]) COVID-19 [facility] Com Blood Type Antibody Screen 11/21/21 07:26 MCV MCH MCHC RDW Plt Count MPV Immature Gran % (Auto) Neut % (Auto) Lymph % (Auto) Burnet % (Auto) Eos % (Auto) Baso % (Auto) Lymph # (Auto) Burnet # (Auto) Eos # (Auto) Baso # (Auto) Abs Immat Gran (auto) Absolute Neuts (auto) Absolute Nucleated RBC Nucleated RBC % (auto) PT INR APTT PTT (Heparin Protocol) Anion Gap Estim Creat Clear Calc Estimated GFR POC Glucose 83 Random Glucose Lactic Acid Calcium Magnesium Total Bilirubin Direct Bilirubin AST ALT Alkaline Phosphatase Troponin I High Sens B-Natriuretic Peptide Total Protein Albumin COVID-19 ([facility]) COVID-19 Clin Com Blood Type Antibody Screen Assessment and Plan (1) Atelectasis: Status: Acute (2) Pleural effusion: Status: Acute (3) Pneumonia: Status: Acute Assessment and Plan: a 66 years old male with PMH of AFib, CAD, CHF, ESRD on HD who presents to the hospital with a complaint of shortness of breath for the last 5 days. Atelectasis, pneumonia 2/2 Pleural effusion Likely a result of renal failure and building up fluids Had dialysis done earlier this morning continue IV antibiotics To do thoracentesis Wednesday morning O2 supplement as needed ESRD on HD get Nephrology evaluation for HD consider extra HD for the pleural effusion diabetes Insulin, diabetic diet history of atrial fibrillation on Eliquis, to hold To use Lovenox or heparin for coverage HTN continue amlodipine DVT PPX Lovenox Quality Stroke Does the patient have a stroke diagnosis?: No VTE Prior VTE?: No VTE Risk Level:: Medical - moderate - high VTE Device Contraindication: Treatment Not Indicated VTE Drug Contraindication: N/A - Med Ordered
[2021-11-21 11:19] LABS: Glucose, Whole Blood 137 mg/dL (60-115)
--- NOTE | 2021-11-21 12:40 | MHC.CM.PN ---
CM MET WITH PT WHO REPORTS HE LIVES ALONE PT REPORTS HE IS ACTIVE WITH [facility] AND HAS A FRIEND THAT HELPS HIS OUT HE REPORTS HE USES A A WALKER AND ROLLATOR WHEN NEEDED PT REPORTS HIS PCP IS DICK THURMAN HE REPORTS HIS FRIEND WILL BRING IN HIS HCP IMM DELIVERED CURRENT DC PLAN IS HOME WITH RESUMPTION OF [facility] SERVICE S PT WILL ARRANGE HIS OWN TRANSPORTATION
[2021-11-21] MEDS: cefTRIAXone sodium 1 GM in 0.9 % Sodium Chloride 50 ML IV (12:58)
[2021-11-21] MEDS: Heparin Sodium,Porcine/1/2NS 25,000 UNIT/250 ML IV.SOLN 14.54 UNIT IVCONT (14:02)
[2021-11-21 14:54] LABS: PTT Heparin Drip 73.8 SEC (53-77.9)
--- NOTE | 2021-11-21 15:38 | MHC.CLN ---
NUTRITION NUTRITION CONSULT FOR SKIN/PRESSURE INJURIES. STAGE II TO LEFT BUTTOCK AND STAGE II TO COCCYX. ADDING GLUCERNA TID TO PROMOTE WOUND HEALING. SUPPLEMENT PROVIDES 710 KCAL, 30 G PROTEIN.
--- NOTE | 2021-11-21 15:42 | MHC.CLN ---
NUTRITION CONSULT FOR STAGE II PRESSURE INJURIES. RECEIVES HEMODIALYSIS. DIET CHANGED FOR DIALYSIS NEEDS TO: DIABETIC 1800 KCAL, 2 GRAM SODIUM, LOW POTASSIUM, LOW PHOSPHORUS. MONITOR INTAKE AND CONSIDER PROTEIN SUPPLEMENT IF EATING LESS THAT 50%.
[2021-11-21 16:08] LABS: Glucose, Whole Blood 123 mg/dL (60-115)
[2021-11-21] MEDS: Azithromycin 500 MG in 0.9 % Sodium Chloride 250 ML 125 MG IV (16:45)
--- NOTE | 2021-11-21 19:09 | PM.CNNEP ---
History of Present Illness Reason for Consult Consult date: 11/21/21 Chief Complaint Chief complaint: SOB History of Present Illness Narrative: 66 yr old man with ESRD HAs HD yesterday Comes in with dyspnea CXR shows pleural effusion WOrk up in progress Review of Systems Review of Systems No fever, chills or weakness No chest pain, palpitation Shortness of breath with ambulation No abdominal pain, nausea or vomiting No urinary symptoms No any rash or wounds PMFSH Past Medical History Medical History A-fib CAD (coronary artery disease) CHF (congestive heart failure) Chronic kidney disease (CKD) COVID-19 Diabetes Gout HTN (hypertension) Prostate CA Family History Pertinent family history: HTN in mother Social History Social History Household Members: None Household Members Other:: tenant next door Housing: House Do you presently have visiting nurse or other home services: Yes (visiting nurses set up) Alcohol intake: never Patient Tobacco Use Status: Tobacco use Unknown Advance Directives Date on File: 11/20/21 service: No Meds Allergies Allergy/AdvReac Type Severity Reaction Status Date / Time allopurinol Allergy Rash Verified 11/20/21 11:41 Active Medications: Current Medications Acetaminophen (Acetaminophen 325 Mg Tablet) 650 mg PO Q6H PRN PRN Reason: Pain, Mild (Pain Scale 1-3) Albuterol Sulfate (Albuterol Sulfate 90 Mcg 8 Gm Inhaler) 2 puff INHALE Q6H PRN PRN Reason: Wheezing Amlodipine Besylate (Amlodipine Besylate 2.5 Mg Tablet) 7.5 mg PO DAILY [facility]; Protocol Last Admin: 11/21/21 09:13 Dose: 7.5 mg Documented by: Cyanocobalamin (Cyanocobalamin (Vitamin B-12) 1,000 Mcg Tablet) 1,000 mcg PO DAILY [facility] Last Admin: 11/21/21 09:13 Dose: 1,000 mcg Documented by: Duloxetine HCl (Duloxetine Hcl 20 Mg Capsule.Dr) 20 mg PO DAILY [facility] Last Admin: 11/21/21 09:13 Dose: 20 mg Documented by: Heparin Sodium (Porcine) (Heparin Sodium,Porcine 5,000 Unit/Ml Vial) 3,600 unit 40 unit/kg (3600 unit) IVPUSH PROTOCOL BOLUS PRN; Protocol PRN Reason: 40 unit/kg - Heparin Protocol Last Admin: 11/21/21 08:18 Dose: 3,600 unit Documented by: Heparin Sodium (Porcine) (Heparin Sodium,Porcine 5,000 Unit/Ml Vial) 7,300 unit 80 unit/kg (7300 unit) IVPUSH PROTOCOL BOLUS PRN; Protocol PRN Reason: 80 unit/kg - Heparin Protocol Azithromycin 500 mg/ Sodium (Chloride) 250 mls @ 125 mls/hr IV Q24H [facility] Last Admin: 11/21/21 16:45 Dose: 125 mls/hr Documented by: Ceftriaxone Sodium 1 gm/ (Sodium Chloride) 50 mls @ 100 mls/hr IV Q24H [facility] Last Infusion: 11/21/21 13:46 Dose: Infused Documented by: Heparin Sodium/Sodium Chloride () 25,000 unit in 250 mls @ 0 mls/hr IVCONT .Q0M [facility]; Protocol Stop: 11/22/21 10:00 Last Admin: 11/21/21 14:02 Dose: 16 units/kg/hr, 14.54 mls/hr Documented by: Insulin Human Lispro (Insulin Lispro 100 Unit/Ml 3 Ml Vial) 0 unit SUBCUT QIDACHS [facility]; Protocol Last Admin: 11/21/21 16:36 Dose: Not Given Documented by: Multivitamins/Vitamin C (Multivitamin Tablet) 1 tab PO DAILY [facility] Last Admin: 11/21/21 09:13 Dose: 1 tab Documented by: Ondansetron HCl (Ondansetron Hcl 4 Mg/2 Ml Vial) 4 mg IVPUSH Q8H PRN PRN Reason: Nausea and Vomiting Pharmacy Consult (Consult Rx Perform Med Rec) 1 each MISCELLANE ONCE PRN PRN Reason: Consult order Senna (Sennosides 8.6 Mg Tablet) 8.6 mg PO DAILY [facility] Last Admin: 11/21/21 09:13 Dose: 8.6 mg Documented by: Sevelamer Carbonate (Sevelamer Carbonate Tablet 800 Mg Tablet) 1,600 mg PO TID [facility] Last Admin: 11/21/21 14:04 Dose: 1,600 mg Documented by: Sodium Chloride (0.9 % Sodium Chloride Flush 3 Ml Syringe) 3 ml IVFLUSH QSHIFT [facility] Last Admin: 11/21/21 16:46 Dose: 3 ml Documented by: Home Medications Medication Instructions Recorded Confirmed Last Taken Type acetaminophen 325 mg tablet 650 mg PO Q6H PRN 11/20/21 11/20/21 11/19/21 History albuterol sulfate 90 mcg/actuation 2 puff INHALATION Q6H PRN 11/20/21 11/20/21 11/19/21 History aerosol inhaler (ProAir HFA) amlodipine 5 mg tablet 7.5 mg PO DAILY 11/20/21 11/20/21 11/19/21 History apixaban 2.5 mg tablet (Eliquis) 2.5 mg PO BID 11/20/21 11/20/21 11/19/21 History cholecalciferol (vitamin D3) 1,250 1 cap PO SA 11/20/21 11/20/21 11/19/21 History mcg (50,000 unit) capsule cyanocobalamin (vitamin B-12) 1,000 mcg PO DAILY 11/20/21 11/20/21 11/19/21 History 1,000 mcg tablet duloxetine 20 mg capsule,delayed 20 mg PO DAILY 11/20/21 11/20/21 11/19/21 History release (Cymbalta) febuxostat 40 mg tablet (Uloric) 40 mg PO DAILY 11/20/21 11/20/21 11/19/21 History insulin lispro 100 unit/mL 1 sliding scale dose SUBCUT 11/20/21 11/20/21 11/19/21 History subcutaneous pen USEASDIRECTD sennosides 8.6 mg tablet (senna) 8.6 mg PO DAILY 11/20/21 11/20/21 11/19/21 History sevelamer carbonate 800 mg tablet 1,600 mg PO TID 11/20/21 11/20/21 11/19/21 History vitamin B complex and vitamin C 1 cap PO DAILY 11/20/21 11/20/21 11/19/21 History no.20-folic acid 1 mg capsule Physical Exam Vital Signs: Last Vital Signs Temp 97.8 F 11/21/21 15:00 Pulse 46 L 11/21/21 15:00 Resp 20 11/21/21 15:00 BP 125/61 11/21/21 15:00 Pulse Ox 97 11/21/21 15:00 BMI result Body Mass Index 37.5 Const Other: Constitutional : Alert, oriented, not in distress Neck : Normal inspection, Supple Cardiovascular : RRR, S1 S2, no lower extremity edema Respiratory : good air entry bilaterally but decreased in the right lower lung with dullness on percussion Gastrointestinal: soft, lax, Normal bowel sounds, Non tender Skin : Warm, Dry, dialysis catheter on the chest wall with no surrounding erythema Neurological : Alert & oriented x3, No focal deficit Results Lab Results Result Diagrams: 11/24/21 08:06 11/21/21 07:07 Lab results: Chemistry 11/20/21 11/21/21 12:18 07:07 Sodium 136 138 Potassium 4.3 4.6 Carbon Dioxide 30 H 27 BUN 12 D 36 H D Creatinine 1.86 H 3.99 H Calcium 9.0 D 8.4 D Hematology 11/20/21 12:18 WBC 12.5 H Hgb 7.7 L Plt Count 329 D Assessment and Plan (1) Atelectasis: Status: Acute (2) Pleural effusion: Status: Acute (3) Pneumonia: Qualifiers: Laterality: right Lung location: lower lobe of lung Pneumonia type: due to unspecified organism Qualified Code(s): J18.9 - Pneumonia, unspecified organism Status: Acute a 66 years old male with PMH of AFib, CAD, CHF, ESRD on HD who presents to the hospital with a complaint of shortness of breath for the last 5 days. Atelectasis, pneumonia 2/2 Pleural effusion continue IV antibiotics Await thoracentesis Wednesday morning O2 supplement as needed ESRD on HD Reevaluate for HD after thoracenthesis REmove fluid with HD as tolerated Severe Anemia Transfuse PRBC as needed Resume Epogen Procedures Date of Service Date of Service: 11/21/21
[2021-11-21 19:50] LABS: Glucose, Whole Blood 163 mg/dL (60-115)
[2021-11-21] MEDS: Insulin Lispro 100 UNIT/ML 3 ML VIAL SUBCUT (21:10)
[2021-11-21 21:54] LABS: PTT Heparin Drip 75.2 SEC (53-77.9)
[2021-11-22] VITALS (8 sets, daily range): BP systolic 102–148; BP diastolic 49–76; PULSE 43–62; RESP 18–20; TEMP 36.1–37.1; O2SAT 50–98
--- NOTE | 2021-11-22 | ECG_ITS ---
Test Reason : Evaluate Bradycardia Blood Pressure : / mmHG Vent. Rate : 037 BPM Atrial Rate : 000 BPM P-R Int : 000 ms QRS Dur : 110 ms QT Int : 492 ms P-R-T Axes : 000 -11 021 degrees QTc Int : 386 ms Junctional bradycardia Nonspecific T wave abnormality Abnormal ECG When compared with ECG of 20-NOV-2021 12:32, Premature ventricular complexes are no longer Present T wave inversion no longer evident in Lateral leads QT has shortened Referred By: Mino Mclean Electronically Signed By:CARLOS MANUEL BOLDEN MD
[2021-11-22 06:39] LABS: PTT Heparin Drip 67.3 SEC (53-77.9)
[2021-11-22 06:55] LABS: Alanine Aminotransferase 9 U/L (0-40); Albumin Level 2.6 g/dL (3.5-5.0); Alkaline Phosphatase 79 U/L (39-117); Aspartate Amino Transferase 13 U/L (5-37); Bilirubin Direct 0.2 mg/dL (0.0-0.5); Bilirubin Total 0.5 mg/dL (0.0-1.0); Lactate Dehydrogenase 156 U/L (118-273); Total Protein 6.4 g/dL (6.5-8.0)
[2021-11-22 07:18] LABS: Glucose, Whole Blood 124 mg/dL (60-115)
[2021-11-22] MEDS: DULoxetine HCl 20 MG CAPSULE.DR PO (10:19)
[2021-11-22] MEDS: Sennosides 8.6 MG TABLET PO (10:19)
[2021-11-22] MEDS: Sevelamer Carbonate Tablet 800 MG TABLET 1600 MG PO ×3 (10:19→20:38)
[2021-11-22] MEDS: Cyanocobalamin (Vitamin B-12) 1,000 MCG TABLET 1000 MCG PO (10:20)
[2021-11-22] MEDS: Multivitamin TABLET 1 TAB PO (10:20)
[2021-11-22] MEDS: 0.9 % Sodium Chloride Flush 3 ML SYRINGE IVFLUSH ×3 (10:20→20:38)
[2021-11-22] MEDS: amLODIPine Besylate 2.5 MG TABLET 7.5 MG PO (10:25)
--- NOTE | 2021-11-22 10:58 | P.PNIM_ITS ---
Subjective Subjective Date of Service: 11/22/21 Interval History: the patient was seen and evaluated this morning Laying in bed, Still complaining of dyspnea on exertion plan for thoracentesis today Noted to have bradycardia, junctional Denies any fever, chills or chest pain No reported other overnight events. Review of Systems No fever, chills or weakness No chest pain, palpitation Shortness of breath with ambulation No abdominal pain, nausea or vomiting No urinary symptoms No any rash or wounds Physical Exam Vital Signs: Vital Signs: Last Vital Signs Temp 97.6 F 11/22/21 07:00 Pulse 43 L 11/22/21 10:25 Resp 20 11/22/21 07:00 BP 115/51 L 11/22/21 10:25 Pulse Ox 98 11/22/21 07:00 BMI result Body Mass Index 37.5 Const: Other: Constitutional : Alert, oriented, not in distress Neck : Normal inspection, Supple Cardiovascular : RRR, S1 S2, no lower extremity edema Respiratory : good air entry bilaterally but decreased in the right lower lung with dullness on percussion Gastrointestinal: soft, lax, Normal bowel sounds, Non tender Skin : Warm, Dry, dialysis catheter on the chest wall with no surrounding erythema Neurological : Alert & oriented x3, No focal deficit Objective Data Active Medications Acetaminophen (Acetaminophen 325 Mg Tablet) 650 mg PO Q6H PRN PRN Reason: Pain, Mild (Pain Scale 1-3) Albuterol Sulfate (Albuterol Sulfate 90 Mcg 8 Gm Inhaler) 2 puff INHALE Q6H PRN PRN Reason: Wheezing Amlodipine Besylate (Amlodipine Besylate 2.5 Mg Tablet) 7.5 mg PO DAILY [facility]; Protocol Last Admin: 11/22/21 10:25 Dose: 7.5 mg Documented by: JACKIE Cyanocobalamin (Cyanocobalamin (Vitamin B-12) 1,000 Mcg Tablet) 1,000 mcg PO DAILY [facility] Last Admin: 11/22/21 10:20 Dose: 1,000 mcg Documented by: JACKIE Duloxetine HCl (Duloxetine Hcl 20 Mg Capsule.) 20 mg PO DAILY [facility] Last Admin: 11/22/21 10:19 Dose: 20 mg Documented by: JACKIE Azithromycin 500 mg/ Sodium (Chloride) 250 mls @ 125 mls/hr IV Q24H [facility] Last Infusion: 11/21/21 19:53 Dose: 0 mls/hr Documented by: TYRESE Ceftriaxone Sodium 1 gm/ (Sodium Chloride) 50 mls @ 100 mls/hr IV Q24H [facility] Last Infusion: 11/21/21 13:46 Dose: 0 mls/hr Documented by: DEIRDRE Insulin Human Lispro (Insulin Lispro 100 Unit/Ml 3 Ml Vial) 0 unit SUBCUT QIDACHS [facility]; Protocol Multivitamins/Vitamin C (Multivitamin Tablet) 1 tab PO DAILY [facility] Last Admin: 11/22/21 10:20 Dose: 1 tab Documented by: JACKIE Ondansetron HCl (Ondansetron Hcl 4 Mg/2 Ml Vial) 4 mg IVPUSH Q8H PRN PRN Reason: Nausea and Vomiting Pharmacy Consult (Consult Rx Perform Med Rec) 1 each MISCELLANE ONCE PRN PRN Reason: Consult order Senna (Sennosides 8.6 Mg Tablet) 8.6 mg PO DAILY [facility] Last Admin: 11/22/21 10:19 Dose: 8.6 mg Documented by: JACKIE Sevelamer Carbonate (Sevelamer Carbonate Tablet 800 Mg Tablet) 1,600 mg PO TID [facility] Last Admin: 11/22/21 10:19 Dose: 1,600 mg Documented by: JACKIE Sodium Chloride (0.9 % Sodium Chloride Flush 3 Ml Syringe) 3 ml IVFLUSH QSHIFT [facility] Last Admin: 11/22/21 10:20 Dose: 3 ml Documented by: JACKIE Labs CBC & Chem 7: 11/20/21 12:18 11/21/21 07:07 Labs: Laboratory Results - last 24 hr 11/21/21 11/21/21 11/21/21 11:11 14:27 15:59 PTT (Heparin Protocol) 73.8 D POC Glucose 137 H 123 H Total Bilirubin Direct Bilirubin AST ALT Alkaline Phosphatase Lactate Dehydrogenase Total Protein Albumin 11/21/21 11/21/21 11/22/21 19:45 21:00 06:03 PTT (Heparin Protocol) 75.2 67.3 POC Glucose 163 H Total Bilirubin Direct Bilirubin AST ALT Alkaline Phosphatase Lactate Dehydrogenase Total Protein Albumin 11/22/21 11/22/21 06:03 07:15 PTT (Heparin Protocol) POC Glucose 124 H Total Bilirubin 0.5 Direct Bilirubin 0.2 AST 13 ALT 9 Alkaline Phosphatase 79 Lactate Dehydrogenase 156 Total Protein 6.4 L Albumin 2.6 L Microbiology Microbiology Results: Microbiology 11/20/21 12:58 Blood Culture - Preliminary Blood - Venous No growth after 24 hours. 11/20/21 12:58 Blood Culture - Preliminary Blood - Venous No growth after 24 hours. Assessment and Plan (1) Atelectasis: Status: Acute (2) Pleural effusion: Status: Acute (3) Pneumonia: Status: Acute Assessment and Plan: a 66 years old male with PMH of AFib, CAD, CHF, ESRD on HD who presents to the hospital with a complaint of shortness of breath for the last 5 days. Atelectasis, pneumonia 2/2 Pleural effusion Likely a result of renal failure and building up fluids Had dialysis done earlier this morning continue IV antibiotics To do thoracentesis today O2 supplement as needed ESRD on HD nephrology input appreciated to do dialysis according to diabetes Insulin, diabetic diet history of atrial fibrillation on Eliquis, to hold to restart Eliquis this afternoon HTN continue amlodipine DVT PPX heparin Quality Stroke Does the patient have a stroke diagnosis?: No VTE Prior VTE?: No VTE Risk Level:: Medical - moderate - high VTE Device Contraindication: Treatment Not Indicated VTE Drug Contraindication: N/A - Med Ordered
[2021-11-22 11:11] LABS: Glucose, Whole Blood 116 mg/dL (60-115)
[2021-11-22] MEDS: Lidocaine HCl 1 % 20 ML VIAL SUBCUT (12:19)
[2021-11-22 12:20] LABS: MN% 71.3 %; PMN% 28.7 %; RBC Pleural Fluid 0.046 X10*3/uL; WBC Pleural Fluid 0.168 X10*3/uL
[2021-11-22 12:54] LABS: Basophils Pleural Fluid 1 %; Eosinophils Pleural Fluid 0 %; Monocytes Pleural Fluid 5 %; Other Cells Plerual Fl 5 %
[2021-11-22 12:56] LABS: BF Shift QC OK YES; Lymphocytes Pleural Fluid 69 %; Man Diluent Bkgrd OK YES; Neutrophils Pleural Fluid 20 %
[2021-11-22] MEDS: cefTRIAXone sodium 1 GM in 0.9 % Sodium Chloride 50 ML IV (13:27)
[2021-11-22 15:45] LABS: Glucose, Whole Blood 145 mg/dL (60-115)
[2021-11-22] MEDS: Azithromycin 500 MG in 0.9 % Sodium Chloride 250 ML 125 MG IV (16:08)
--- NOTE | 2021-11-22 16:56 | PM.PNNEP ---
Subjective Subjective Date of Service: 11/22/21 Interval history: FEELS MUCH BETTER TODAY Physical Exam Vital Signs: Vital Signs: Last Vital Signs Temp 97.8 F 11/22/21 14:40 Pulse 43 L 11/22/21 14:40 Resp 18 11/22/21 14:40 BP 128/67 11/22/21 14:40 Pulse Ox 94 11/22/21 14:40 BMI result Body Mass Index 37.5 Const: Other: Constitutional : Alert, oriented, not in distress Neck : Normal inspection, Supple Cardiovascular : RRR, S1 S2, no lower extremity edema Respiratory : good air entry bilaterally but decreased in the right lower lung with dullness on percussion Gastrointestinal: soft, lax, Normal bowel sounds, Non tender Skin : Warm, Dry, dialysis catheter on the chest wall with no surrounding erythema Neurological : Alert & oriented x3, No focal deficit Objective Data Labs CBC & Chem 7: 11/20/21 12:18 11/21/21 07:07 Labs: Laboratory Results - last 24 hr 11/21/21 11/21/21 11/22/21 19:45 21:00 06:03 PTT (Heparin Protocol) 75.2 67.3 POC Glucose 163 H Total Bilirubin Direct Bilirubin AST ALT Alkaline Phosphatase Lactate Dehydrogenase Total Protein Albumin Pleural WBC Pleural RBC Pleural Neutrophils Pleural Lymphocytes Pleural Monocytes Pleural Eosinophils Pleural Basophils Pleural Other Cells 11/22/21 11/22/21 11/22/21 06:03 07:15 09:40 PTT (Heparin Protocol) POC Glucose 124 H Total Bilirubin 0.5 Direct Bilirubin 0.2 AST 13 ALT 9 Alkaline Phosphatase 79 Lactate Dehydrogenase 156 Total Protein 6.4 L Albumin 2.6 L Pleural WBC 0.168 Pleural RBC 0.046 Pleural Neutrophils 20 Pleural Lymphocytes 69 Pleural Monocytes 5 Pleural Eosinophils 0 Pleural Basophils 1 Pleural Other Cells 5 11/22/21 11/22/21 11:07 15:32 PTT (Heparin Protocol) POC Glucose 116 H 145 H Total Bilirubin Direct Bilirubin AST ALT Alkaline Phosphatase Lactate Dehydrogenase Total Protein Albumin Pleural WBC Pleural RBC Pleural Neutrophils Pleural Lymphocytes Pleural Monocytes Pleural Eosinophils Pleural Basophils Pleural Other Cells Microbiology Microbiology Results: Microbiology 11/20/21 12:58 Blood - Venous Blood Culture - Preliminary No growth after 48 hours. 11/20/21 12:58 Blood - Venous Blood Culture - Preliminary No growth after 48 hours. Procedures Date of Service Date of Service: 11/22/21 Assessment & Plan Assessment and plan (1) Atelectasis: Status: Acute (2) Pleural effusion: Status: Acute (3) Pneumonia: Status: Acute Assessment and Plan: a 66 years old male with PMH of AFib, CAD, CHF, ESRD on HD who presents to the hospital with a complaint of shortness of breath for the last 5 days. Atelectasis, pneumonia 2/2 Pleural effusion continue IV antibiotics O2 supplement as needed ESRD on HD Reevaluate for HD after thoracenthesis REmove fluid with HD as tolerated HD [place] Severe Anemia Transfuse PRBC as needed Resume Epogen Time Spent With Patient Time: Total time spent is greater than 50% in coordination of care (as documented) at patient's floor/unit and/or counseling patient: Time with patient: 15 - 24 minutes Progress Note: Quality Stroke Does the patient have a stroke diagnosis?: No
[2021-11-22 20:16] LABS: Glucose, Whole Blood 161 mg/dL (60-115)
[2021-11-22] MEDS: Apixaban 2.5 MG TABLET PO (20:38)
[2021-11-22] MEDS: Insulin Lispro 100 UNIT/ML 3 ML VIAL SUBCUT (20:38)
[2021-11-23] VITALS (10 sets, daily range): BP systolic 114–159; BP diastolic 50–95; PULSE 36–80; RESP 16–20; TEMP 36.1–37; O2SAT 84–99
[2021-11-23 06:15] LABS: LDH Pleural Fluid 298; Total Protein Pleural Fluid 3.5
[2021-11-23 06:46] LABS: Hematocrit 21.7 % (42.0-52.0); Mean Corpuscular HGB Conc 30.9 g/dl (31.0-36.0); Mean Corpuscular Hemoglobin 32.7 pg (27.0-33.0); Mean Corpuscular Volume 105.9 fL (80.0-98.0); Mean Platelet Volume 9.3 fL (9.4-12.4); Platelet Count 260 X10*3/uL (160-400); Red Blood Count 2.05 X10*6/uL (4.60-5.80); Red Cell Distribution Width 18.9 % (11.0-16.0); White Blood Count 11.3 X10*3/uL (4.8-10.8)
[2021-11-23 07:17] LABS: Hemoglobin 6.7 g/dl (14.0-18.0)
[2021-11-23] MEDS: Insulin Lispro 100 UNIT/ML 3 ML VIAL SUBCUT (07:29)
[2021-11-23] MEDS: amLODIPine Besylate 2.5 MG TABLET 7.5 MG PO (08:30)
[2021-11-23] MEDS: 0.9 % Sodium Chloride Flush 3 ML SYRINGE IVFLUSH ×3 (08:30→21:28)
[2021-11-23] MEDS: DULoxetine HCl 20 MG CAPSULE.DR PO (08:31)
[2021-11-23] MEDS: Multivitamin TABLET 1 TAB PO (08:31)
[2021-11-23] MEDS: Sennosides 8.6 MG TABLET PO (08:31)
[2021-11-23] MEDS: Apixaban 2.5 MG TABLET PO ×2 (08:31→21:28)
[2021-11-23] MEDS: Sevelamer Carbonate Tablet 800 MG TABLET 1600 MG PO ×3 (08:31→21:28)
[2021-11-23] MEDS: Cyanocobalamin (Vitamin B-12) 1,000 MCG TABLET 1000 MCG PO (08:31)
[2021-11-23 11:31] LABS: Glucose, Whole Blood 101 mg/dL (60-115)
--- NOTE | 2021-11-23 11:43 | P.PNIM_ITS ---
Subjective Subjective Date of Service: 11/23/21 Interval History: the patient was seen and evaluated this morning Laying in bed, Feels better overall Still complaining of dyspnea on exertion, oxygen dropped to 84 on room thoracentesis done today removing 650 ml Noted to have bradycardia,Slow atrial fibrillation Denies any fever, chills or chest pain No reported other overnight events. Review of Systems No fever, chills or weakness No chest pain, palpitation Shortness of breath with ambulation No abdominal pain, nausea or vomiting No urinary symptoms No any rash or wounds Physical Exam Vital Signs: Vital Signs: Last Vital Signs Temp 98.3 F 11/23/21 07:24 Pulse 42 L 11/23/21 08:30 Resp 20 11/23/21 03:25 BP 138/64 11/23/21 08:30 Pulse Ox 84 L 11/23/21 11:06 BMI result Body Mass Index 37.5 Const: Other: Constitutional : Alert, oriented, not in distress Neck : Normal inspection, Supple Cardiovascular : RRR, S1 S2, no lower extremity edema Respiratory : good air entry bilaterally but decreased in the right lower lung with dullness on percussion, on oxygen supplement Gastrointestinal: soft, lax, Normal bowel sounds, Non tender Skin : Warm, Dry, dialysis catheter on the chest wall with no surrounding erythema Neurological : Alert & oriented x3, No focal deficit Objective Data Active Medications Acetaminophen (Acetaminophen 325 Mg Tablet) 650 mg PO Q6H PRN PRN Reason: Pain, Mild (Pain Scale 1-3) Albuterol Sulfate (Albuterol Sulfate 90 Mcg 8 Gm Inhaler) 2 puff INHALE Q6H PRN PRN Reason: Wheezing Amlodipine Besylate (Amlodipine Besylate 2.5 Mg Tablet) 7.5 mg PO DAILY [facility]; Protocol Last Admin: 11/23/21 08:30 Dose: 7.5 mg Documented by: KARINA Apixaban (Apixaban 2.5 Mg Tablet) 2.5 mg PO BID [facility] Last Admin: 11/23/21 08:31 Dose: 2.5 mg Documented by: KARINA Cyanocobalamin (Cyanocobalamin (Vitamin B-12) 1,000 Mcg Tablet) 1,000 mcg PO DAILY [facility] Last Admin: 11/23/21 08:31 Dose: 1,000 mcg Documented by: KARINA Duloxetine HCl (Duloxetine Hcl 20 Mg Capsule.Dr) 20 mg PO DAILY [facility] Last Admin: 11/23/21 08:31 Dose: 20 mg Documented by: KARINA Azithromycin 500 mg/ Sodium (Chloride) 250 mls @ 125 mls/hr IV Q24H [facility] Last Infusion: 11/22/21 18:30 Dose: 0 mls/hr Documented by: JACKIE Ceftriaxone Sodium 1 gm/ (Sodium Chloride) 50 mls @ 100 mls/hr IV Q24H [facility] Last Infusion: 11/22/21 14:10 Dose: 0 mls/hr Documented by: JACKIE Insulin Human Lispro (Insulin Lispro 100 Unit/Ml 3 Ml Vial) 0 unit SUBCUT QIDACHS [facility]; Protocol Last Admin: 11/23/21 07:29 Dose: 2 unit Documented by: KARINA Multivitamins/Vitamin C (Multivitamin Tablet) 1 tab PO DAILY [facility] Last Admin: 11/23/21 08:31 Dose: 1 tab Documented by: KARINA Ondansetron HCl (Ondansetron Hcl 4 Mg/2 Ml Vial) 4 mg IVPUSH Q8H PRN PRN Reason: Nausea and Vomiting Pharmacy Consult (Consult Rx Perform Med Rec) 1 each MISCELLANE ONCE PRN PRN Reason: Consult order Senna (Sennosides 8.6 Mg Tablet) 8.6 mg PO DAILY [facility] Last Admin: 11/23/21 08:31 Dose: 8.6 mg Documented by: KARINA Sevelamer Carbonate (Sevelamer Carbonate Tablet 800 Mg Tablet) 1,600 mg PO TID [facility] Last Admin: 11/23/21 08:31 Dose: 1,600 mg Documented by: KARINA Sodium Chloride (0.9 % Sodium Chloride Flush 3 Ml Syringe) 3 ml IVFLUSH QSHIFT [facility] Last Admin: 11/23/21 08:30 Dose: 3 ml Documented by: KARINA Labs CBC & Chem 7: 11/23/21 06:18 11/21/21 07:07 Labs: Laboratory Results - last 24 hr 11/20/21 11/22/21 11/22/21 12:58 09:40 09:40 MCV MCH MCHC RDW Plt Count MPV Absolute Nucleated RBC Nucleated RBC % (auto) POC Glucose Pleural WBC 0.168 Pleural RBC 0.046 Pleural Neutrophils 20 Pleural Lymphocytes 69 Pleural Monocytes 5 Pleural Eosinophils 0 Pleural Basophils 1 Pleural Other Cells 5 Pleural Total Protein 3.5 Pleural LDH 298 Blood Type A Positive Antibody Screen NEGATIVE Crossmatch See Detail 11/22/21 11/22/21 11/23/21 15:32 20:08 06:18 MCV 105.9 H MCH 32.7 MCHC 30.9 L RDW 18.9 H Plt Count 260 MPV 9.3 L Absolute Nucleated RBC 0.000 Nucleated RBC % (auto) 0.0 POC Glucose 145 H 161 H Pleural WBC Pleural RBC Pleural Neutrophils Pleural Lymphocytes Pleural Monocytes Pleural Eosinophils Pleural Basophils Pleural Other Cells Pleural Total Protein Pleural LDH Blood Type Antibody Screen Crossmatch 11/23/21 11:15 MCV MCH MCHC RDW Plt Count MPV Absolute Nucleated RBC Nucleated RBC % (auto) POC Glucose 101 Pleural WBC Pleural RBC Pleural Neutrophils Pleural Lymphocytes Pleural Monocytes Pleural Eosinophils Pleural Basophils Pleural Other Cells Pleural Total Protein Pleural LDH Blood Type Antibody Screen Crossmatch Microbiology Microbiology Results: Microbiology 11/20/21 12:58 Blood Culture - Preliminary Blood - Venous No growth after 48 hours. 11/20/21 12:58 Blood Culture - Preliminary Blood - Venous No growth after 48 hours. Assessment and Plan (1) Atelectasis: Status: Acute (2) Pleural effusion: Status: Acute (3) Pneumonia: Status: Acute (4) ESRD on dialysis: Status: Acute Assessment and Plan: a 66 years old male with PMH of AFib, CAD, CHF, ESRD on HD who presents to the hospital with a complaint of shortness of breath for the last 5 days. Atelectasis, pneumonia 2/2 Pleural effusion Likely a result of renal failure and building up fluids dialysis to be done today continue IV antibiotics thoracentesis done removing 650 mL, high LDH,exudative, expected in dialysis patient O2 supplement as needed ESRD on HD nephrology input appreciated plan for dialysis today diabetes Insulin, diabetic diet history of atrial fibrillation on Eliquis, to hold to restart Eliquis this afternoon HTN continue amlodipine DVT PPX heparin dispo, PT recommended SNF. To look for placement. Quality Stroke Does the patient have a stroke diagnosis?: No VTE Prior VTE?: No VTE Risk Level:: Medical - moderate - high VTE Device Contraindication: Treatment Not Indicated VTE Drug Contraindication: N/A - Med Ordered
--- NOTE | 2021-11-23 12:00 | PM.PNNEP ---
Subjective Subjective Date of Service: 11/25/21 Interval history: Events noted Feels beter Physical Exam Vital Signs: Vital Signs: Last Vital Signs Temp 98.3 F 11/23/21 07:24 Pulse 42 L 11/23/21 08:30 Resp 20 11/23/21 03:25 BP 138/64 11/23/21 08:30 Pulse Ox 84 L 11/23/21 11:06 BMI result Body Mass Index 37.5 Const: Other: Constitutional : Alert, oriented, not in distress Neck : Normal inspection, Supple Cardiovascular : RRR, S1 S2, no lower extremity edema Respiratory : good air entry bilaterally but decreased in the right lower lung with dullness on percussion Gastrointestinal: soft, lax, Normal bowel sounds, Non tender Skin : Warm, Dry, dialysis catheter on the chest wall with no surrounding erythema Neurological : Alert & oriented x3, No focal deficit Objective Data Labs CBC & Chem 7: 11/24/21 08:06 11/21/21 07:07 Labs: Laboratory Results - last 24 hr 11/20/21 11/22/21 11/22/21 12:58 09:40 09:40 WBC RBC Hgb Hct MCV MCH MCHC RDW Plt Count MPV Absolute Nucleated RBC Nucleated RBC % (auto) POC Glucose Pleural WBC 0.168 Pleural RBC 0.046 Pleural Neutrophils 20 Pleural Lymphocytes 69 Pleural Monocytes 5 Pleural Eosinophils 0 Pleural Basophils 1 Pleural Other Cells 5 Pleural Total Protein 3.5 Pleural LDH 298 Blood Type A Positive Antibody Screen NEGATIVE Crossmatch See Detail 11/22/21 11/22/21 11/23/21 15:32 20:08 06:18 WBC 11.3 H RBC 2.05 L Hgb 6.7 L* Hct 21.7 L MCV 105.9 H MCH 32.7 MCHC 30.9 L RDW 18.9 H Plt Count 260 MPV 9.3 L Absolute Nucleated RBC 0.000 Nucleated RBC % (auto) 0.0 POC Glucose 145 H 161 H Pleural WBC Pleural RBC Pleural Neutrophils Pleural Lymphocytes Pleural Monocytes Pleural Eosinophils Pleural Basophils Pleural Other Cells Pleural Total Protein Pleural LDH Blood Type Antibody Screen Crossmatch 11/23/21 11:15 WBC RBC Hgb Hct MCV MCH MCHC RDW Plt Count MPV Absolute Nucleated RBC Nucleated RBC % (auto) POC Glucose 101 Pleural WBC Pleural RBC Pleural Neutrophils Pleural Lymphocytes Pleural Monocytes Pleural Eosinophils Pleural Basophils Pleural Other Cells Pleural Total Protein Pleural LDH Blood Type Antibody Screen Crossmatch Microbiology Microbiology Results: Microbiology 11/20/21 12:58 Blood - Venous Blood Culture - Preliminary No growth after 48 hours. 11/20/21 12:58 Blood - Venous Blood Culture - Preliminary No growth after 48 hours. Procedures Date of Service Date of Service: 11/23/21 Assessment & Plan Assessment and plan (1) Atelectasis: Status: Acute (2) Pleural effusion: Status: Acute (3) Pneumonia: Status: Acute Assessment and Plan: a 66 years old male with PMH of AFib, CAD, CHF, ESRD on HD who presents to the hospital with a complaint of shortness of breath for the last 5 days. Atelectasis, pneumonia 2/2 Pleural effusion continue IV antibiotics O2 supplement as needed ESRD on HD HD today Severe Anemia Transfuse PRBC as needed Resume Epogen Time Spent With Patient Time: Total time spent is greater than 50% in coordination of care (as documented) at patient's floor/unit and/or counseling patient: Time with patient: 15 - 24 minutes Progress Note: Quality Stroke Does the patient have a stroke diagnosis?: No
[2021-11-23 16:11] LABS: Glucose, Whole Blood 95 mg/dL (60-115)
[2021-11-23] MEDS: cefTRIAXone sodium 1 GM in 0.9 % Sodium Chloride 50 ML IV (16:26)
[2021-11-23] MEDS: Azithromycin 500 MG in 0.9 % Sodium Chloride 250 ML 125 MG IV (16:30)
[2021-11-23 19:57] LABS: Glucose, Whole Blood 104 mg/dL (60-115)
[2021-11-24 03:22] VITALS: BP 135/66; PULSE 75; RESP 20; TEMP 37.1; O2SAT 98
[2021-11-24] MEDS: Melatonin 3 MG TABLET PO (03:39)
[2021-11-24 07:18] VITALS: BP 138/65; PULSE 48; RESP 19; TEMP 36.6; O2SAT 96
[2021-11-24 07:29] LABS: Glucose, Whole Blood 106 mg/dL (60-115)
[2021-11-24 08:16] LABS: Hematocrit 28.1 % (42.0-52.0); Hemoglobin 8.8 g/dl (14.0-18.0); Mean Corpuscular HGB Conc 31.3 g/dl (31.0-36.0); Mean Corpuscular Hemoglobin 32.1 pg (27.0-33.0); Mean Corpuscular Volume 102.6 fL (80.0-98.0); Platelet Count 297 X10*3/uL (160-400); Red Blood Count 2.74 X10*6/uL (4.60-5.80); Red Cell Distribution Width 19.2 % (11.0-16.0); White Blood Count 9.9 X10*3/uL (4.8-10.8)
[2021-11-24 08:55] VITALS: BP 138/65; PULSE 48; O2SAT 96
[2021-11-24] MEDS: Sevelamer Carbonate Tablet 800 MG TABLET 1600 MG PO (09:50)
[2021-11-24] MEDS: amLODIPine Besylate 2.5 MG TABLET 7.5 MG PO (09:50)
[2021-11-24] MEDS: Sennosides 8.6 MG TABLET PO (09:50)
[2021-11-24] MEDS: Multivitamin TABLET 1 TAB PO (09:50)
[2021-11-24] MEDS: Apixaban 2.5 MG TABLET PO (09:51)
[2021-11-24] MEDS: DULoxetine HCl 20 MG CAPSULE.DR PO (09:51)
[2021-11-24] MEDS: Cyanocobalamin (Vitamin B-12) 1,000 MCG TABLET 1000 MCG PO (09:51)
[2021-11-24] MEDS: 0.9 % Sodium Chloride Flush 3 ML SYRINGE IVFLUSH (09:51)
--- NOTE | 2021-11-24 10:05 | PM.DS ---
DS: Providers Provider Date of Service: 11/24/21 Date of admission: 11/20/21 15:27 Primary care physician: Unknown Physician Consults: 11/20/21 15:27 Consult to Nephrology Routine Consulting Provider: Arron Lee Reason for consultation: ESRD on HD w Rt pleural effusion and dyspnea for your kind josiah. DS: Diagnosis Discharge Diagnosis (1) Atelectasis: Status: Acute (2) Pleural effusion: Status: Acute (3) Pneumonia: Status: Acute (4) ESRD on dialysis: Status: Acute (5) Acute on chronic anemia: Status: Acute DS: Summary Hospital Course Hospital Course: admission note HPI ?a 66 years old male with PMH of AFib, CAD, CHF, ESRD on HD who presents to the hospital with a complaint of shortness of breath for the last 5 days.? He is reporting that he has dyspnea on exertion associated with chest tightness.? Denies any palpitation, chest pain, nausea or vomiting or change in bowel habit.? He reports he is doing dialysis 3 times TTS as he went in earlier today and they removed extra fluids but after walking few steps he fell the dyspnea again and decided to come to the hospital for further evaluation.? The emergency an x-ray was significant for moderate-size pleural? effusion the right size with associated atelectasis.? Denies any fever, chills or cough. Admitted for further evaluation and treatment. Hospital course Patient was admitted to the hospital for difficulty breathing as a result of having in you right-sided pleural effusion with atelectasis and possible pneumonia. Treated with IV antibiotics as thoracentesis done removing 650 mL of exudative fluid with good response. Pending pathology result at time of discharge. Patient was able to ambulate with the help of physical therapy who recommended short-term rehab for him. He is still on 2 L at time of discharge. Noticed to have a drop in his hemoglobin level to 6.3. Transfuse a unit of blood with good response above 8. Dialysis was resumed as he was evaluated by Nephrology team. To follow up with Nephrology as outpatient for dialysis. To be discharged on azithromycin and Ceftin for 3 more days. Time Spent with Patient Time attestation: Total time spent providing and/or coordinating discharge services: Discharge coordination time: Greater than 30 minutes Quality: Stroke Does the patient have a stroke diagnosis?: No Physical Exam Vital Signs: Vital Signs: Last Vital Signs Temp 97.8 F 11/24/21 07:18 Pulse 48 L 11/24/21 08:55 Resp 19 11/24/21 07:18 BP 138/65 11/24/21 08:55 Pulse Ox 96 11/24/21 08:55 BMI result Body Mass Index 37.5 Const: Other: Constitutional : Alert, oriented, not in distress Neck : Normal inspection, Supple Cardiovascular : RRR, S1 S2, no lower extremity edema Respiratory : good air entry bilaterally but Improved air entry in the right lower lung. Gastrointestinal: soft, lax, Normal bowel sounds, Non tender Skin : Warm, Dry, dialysis catheter on the chest wall with no surrounding erythema Neurological : Alert & oriented x3, No focal deficit DS: Data Data Completed and Pending Labs on day of discharge: Laboratory Results - last 24 hr 11/20/21 11/23/21 11/23/21 12:58 11:15 16:05 WBC RBC Hgb Hct MCV MCH MCHC RDW Plt Count MPV Absolute Nucleated RBC Nucleated RBC % (auto) POC Glucose 101 95 Blood Type A Positive Antibody Screen NEGATIVE Crossmatch See Detail 11/23/21 11/24/21 11/24/21 19:52 07:18 08:06 WBC 9.9 RBC 2.74 L D Hgb 8.8 L D Hct 28.1 L D MCV 102.6 H MCH 32.1 MCHC 31.3 RDW 19.2 H Plt Count 297 MPV 9.0 L Absolute Nucleated RBC 0.000 Nucleated RBC % (auto) 0.0 POC Glucose 104 106 Blood Type Antibody Screen Crossmatch Preliminary micro results at discharge 11/20/21 12:58 Blood Culture - Preliminary Blood - Venous No growth after 48 hours. 11/20/21 12:58 Blood Culture - Preliminary Blood - Venous No growth after 48 hours. Discharge Plan Discharge Patient Disposition: [facility] Discharge Diagnosis: Pleural effusion, pneumonia Referrals: [facility] [Other] - 1 Week Physician,Unknown J [Primary Care Provider] - 1 Week Discharge Medications: New cefuroxime axetil 500 mg tablet 500 mg PO BID Qty: 5 RF: 0 azithromycin 500 mg tablet 500 mg PO DAILY 3 Days Qty: 3 RF: 0 Continued amlodipine 5 mg Tablet 7.5 mg PO DAILY RF: 0 B complex with C 20-folic acid 1 mg Capsule 1 cap PO DAILY RF: 0 sennosides [senna] 8.6 mg Tablet 8.6 mg PO DAILY RF: 0 acetaminophen 325 mg Tablet 650 mg PO Q6H PRN (Reason: Pain) RF: 0 cyanocobalamin (vitamin B-12) 1,000 mcg Tablet 1,000 mcg PO DAILY RF: 0 albuterol sulfate [ProAir HFA] 90 mcg/actuation Hfa Aerosol Inhaler 2 puff INHALATION Q6H PRN (Reason: Wheezing) RF: 0 insulin lispro 100 unit/mL Insulin Pen 1 sliding scale dose SUBCUT USEASDIRECTD RF: 0 duloxetine [Cymbalta] 20 mg Capsule,Delayed Release(Dr/Ec) 20 mg PO DAILY RF: 0 cholecalciferol (vitamin D3) 1,250 mcg (50,000 unit) capsule 1 cap PO SA RF: 0 sevelamer carbonate 800 mg Tablet 1,600 mg PO TID RF: 0 febuxostat [Uloric] 40 mg Tablet 40 mg PO DAILY RF: 0 Eliquis 2.5 mg Tablet 2.5 mg PO BID RF: 0 Discharge Orders: Discharge Order (Routine); Ordered 11/24/21 Ordered By: Mino Mclean Diet: advance to usual diet Activity on Discharge: As tolerated Stand Alone Forms: Patient Portal Discharge page Care Plan Goals: Read below Health Concerns: Read below Plan of Treatment: Read below Assessment: you were admitted to the hospital for reported shortness of breath. Chest x-ray showed right-sided pleural effusion which was drained by radiologist. You had dialysis session the hospital and treated with IV antibiotics for pneumonia. To continue azithromycin and Ceftin for 3 more days. Discharge Date/Time: 11/24/21 13:10
[2021-11-24 10:58] VITALS: BP 158/72; PULSE 44; RESP 20; TEMP 36.1; O2SAT 96
[2021-11-24 11:10] LABS: Glucose, Whole Blood 151 mg/dL (60-115)
--- NOTE | 2021-11-24 11:40 | P.CDIC_ITS ---
CDI Concurrent Query Documentation Clarification: PHYSICIAN'S DOCUMENTATION REQUEST Date of Query: 11/24/21 1140 Patient Name: Jarrett Montoya Admit Date: 11/20/21 Dear Doctor, A review of the medical record indicates additional documentation may be indicated. Please review below and update the documentation accordingly. Risk Factors/Clinical Indicators/Treatments Wound assessment 1/2 - Pressure injury Stage II coccyx. Triad Foam dressing Based on the above, could you please provide, in the Progress Notes, further information regarding the ulcer/wound: * Location of the ulcer/wound, including laterality * Type (etiology) of ulcer/wound: * Pressure (decubitus) ulcer * Other * Unable to determine * If a pressure ulcer, please also include the stage* of the ulcer: * Stage 1 - Skin intact, non-blanchable redness * Stage 2 - Partial thickness loss of dermis, includes intact or open blister * Stage 3 - Full thickness tissue not including bone, tendon, or muscle Use of terms such as suspected, likely, concern for, or probable (associated with a specific diagnosis that is being evaluated, monitored, or treated as if it exists) are acceptable and can be coded in the inpatient setting, when documented at the time of discharge. Thank you, Cyndy Milton [facility], CDIS Extension: [phone] Please use your independent medical judgment in providing your response. THIS QUERY IS PART OF THE PERMANENT MEDICAL RECORD Provider Response: Other Other Diagnosis: Pressure injury Stage II coccyx
--- NOTE | 2021-11-24 11:42 | PM.PNNEP ---
Subjective Subjective Date of Service: 11/25/21 Interval history: Events noted Had HD yesterday Physical Exam Vital Signs: Vital Signs: Last Vital Signs Temp 96.9 F 11/24/21 10:58 Pulse 44 L 11/24/21 10:58 Resp 20 11/24/21 10:58 BP 158/72 H 11/24/21 10:58 Pulse Ox 96 11/24/21 10:58 BMI result Body Mass Index 37.5 Objective Data Labs CBC & Chem 7: 11/24/21 08:06 11/21/21 07:07 Labs: Laboratory Results - last 24 hr 11/20/21 11/23/21 11/23/21 12:58 16:05 19:52 WBC RBC Hgb Hct MCV MCH MCHC RDW Plt Count MPV Absolute Nucleated RBC Nucleated RBC % (auto) POC Glucose 95 104 Blood Type A Positive Antibody Screen NEGATIVE Crossmatch See Detail 11/24/21 11/24/21 11/24/21 07:18 08:06 10:57 WBC 9.9 RBC 2.74 L D Hgb 8.8 L D Hct 28.1 L D MCV 102.6 H MCH 32.1 MCHC 31.3 RDW 19.2 H Plt Count 297 MPV 9.0 L Absolute Nucleated RBC 0.000 Nucleated RBC % (auto) 0.0 POC Glucose 106 151 H Blood Type Antibody Screen Crossmatch Microbiology Microbiology Results: Microbiology 11/20/21 12:58 Blood - Venous Blood Culture - Preliminary No growth after 48 hours. 11/20/21 12:58 Blood - Venous Blood Culture - Preliminary No growth after 48 hours. Procedures Date of Service Date of Service: 11/24/21 Assessment & Plan Assessment and plan (1) Atelectasis: Status: Acute (2) Pleural effusion: Status: Acute (3) Pneumonia: Status: Acute Assessment and Plan: a 66 years old male with PMH of AFib, CAD, CHF, ESRD on HD who presents to the hospital with a complaint of shortness of breath for the last 5 days. Atelectasis, pneumonia 2/2 Pleural effusion O2 supplement as needed ESRD on HD Severe Anemia Transfuse PRBC as needed On Epogen Time Spent With Patient Time: Total time spent is greater than 50% in coordination of care (as documented) at patient's floor/unit and/or counseling patient: Time with patient: 15 - 24 minutes Progress Note: Quality Stroke Does the patient have a stroke diagnosis?: No
--- NOTE | 2021-11-24 11:45 | P.CDIC_ITS ---
CDI Concurrent Query Documentation Clarification: PHYSICIAN'S DOCUMENTATION REQUEST Date of Query: 11/24/21 1140 Patient Name: Jarrett Montoya Admit Date: 11/20/21 Dear Doctor, A review of the medical record indicates additional documentation may be indicated. Please review below and update the documentation accordingly. Clinical Indicators: Risk Factors/Clinical Indicators/Treatments Wound assessment 1/2- Pressure injury Stage II left buttock. Triad Foam dressing Based on the above, could you please provide, in the Progress Notes, further information regarding the ulcer/wound: * Location of the ulcer/wound, including laterality * Pressure (decubitus) ulcer * Other * Unable to determine * If a pressure ulcer, please also include the stage* of the ulcer: * Stage 1 - Skin intact, non-blanchable redness * Stage 2 - Partial thickness loss of dermis, includes intact or open blister * Stage 3 - Full thickness tissue not including bone, tendon, or muscl *Source: National Pressure Ulcer Advisory Panel (NPUAP) Use of terms such as suspected, likely, concern for, or probable (associated with a specific diagnosis that is being evaluated, monitored, or treated as if i t exists) are acceptable and can be coded in the inpatient setting, when documented at the time of discharge. Thank you, Cyndy Milton [facility], CDIS Extension: [phone] Please use your independent medical judgment in providing your response. THIS QUERY IS PART OF THE PERMANENT MEDICAL RECORD Provider Response: Other Other Diagnosis: Pressure injury Stage II left buttock
--- NOTE | 2021-11-24 11:45 | MHC.CDI.CONC ---
CDI Concurrent Query Documentation Clarification: PHYSICIAN'S DOCUMENTATION REQUEST Date of Query: 11/24/21 1146 Patient Name: Jarrett Montoya Admit Date: 11/20/21 Dear Doctor, A review of the medical record indicates additional documentation may be indicated. Please review below and update the documentation accordingly. Clinical Indicators: Risk Factors/Clinical Indicators/Treatments Wound assessment 1/2- Pressure injury Stage II left buttock. Triad Foam dressing Based on the above, could you please provide, in the Progress Notes, further information regarding the ulcer/wound: Location of the ulcer/wound, including laterality Pressure (decubitus) ulcer Other Unable to determine If a pressure ulcer, please also include the stage* of the ulcer: Stage 1 - Skin intact, non-blanchable redness Stage 2 - Partial thickness loss of dermis, includes intact or open blister Stage 3 - Full thickness tissue not including bone, tendon, or muscl *Source: National Pressure Ulcer Advisory Panel (NPUAP) Use of terms such as suspected, likely, concern for, or probable (associated with a specific diagnosis that is being evaluated, monitored, or treated as if it exists) are acceptable and can be coded in the inpatient setting, when documented at the time of discharge. Thank you, Cyndy Milton [facility], CDIS Extension: [phone] Please use your independent medical judgment in providing your response. THIS QUERY IS PART OF THE PERMANENT MEDICAL RECORD Provider Response: Other Other Diagnosis: Pressure injury Stage II left buttock
--- NOTE | 2021-11-24 12:26 | MHC.CM.PN ---
pt to be dcd today at 1230 to irene mariano pt aware of dc imm updated
[2021-11-24] MEDS: Insulin Lispro 100 UNIT/ML 3 ML VIAL SUBCUT (12:33)
[2021-11-24 13:18] LABS: COVID-19 Test Negative (Negative)
== END 2021-11-24 13:10 | disposition skilled nursing facility (03) | DRG 193 ==
LOC: HO.ED 12:46 → HO.EDOVER 15:34 → HO.IMC 17:13
PROVIDERS: Admitting Provider Student in an Organized Health Care Education/Training Program; Emergency Provider Emergency Medicine; Visit Provider Student in an Organized Health Care Education/Training Program
DX: J18.9 Pneumonia, unspecified organism (principal); N18.6 End stage renal disease; I13.2 Hypertensive heart and chronic kidney disease with heart failure and with stage 5 chronic kidney disease, or end stage renal disease; I48.91 Unspecified atrial fibrillation; L89.152 Pressure ulcer of sacral region, stage 2; E11.22 Type 2 diabetes mellitus with diabetic chronic kidney disease; L89.322 Pressure ulcer of left buttock, stage 2; Z20.822 Contact with and (suspected) exposure to COVID-19; D63.1 Anemia in chronic kidney disease; Z86.16 Personal history of COVID-19; Z99.2 Dependence on renal dialysis; Z79.4 Long term (current) use of insulin; Z79.01 Long term (current) use of anticoagulants; Z79.899 Other long term (current) drug therapy
CPT/HCPCS: 32555; 36415; 71045; 80048; 80076; 82947; 83605; 83615; 83735; 83880; 84157; 84484; 85025; 85027; 85610; 85730; 86850; 86900; 86901; 86923; 87040; 87635; 89051; 90999; 93005; 96374; 97110; 97162; 99285; J0456; J0692; J0696; P9016

== ENCOUNTER 2021-11-24 00:26 | Outpatient (REF) | payer MEDICARE, SELFPAY | END 2021-11-24 00:27 | disposition home or self-care (01) | LOC: HO.MMNH1L 00:26 | PROVIDERS: Visit Provider Family Medicine | DX: Z13.89 Encounter for screening for other disorder (principal) ==

== ENCOUNTER 2021-12-01 00:34 | Outpatient (REF) | payer MEDICARE, SELFPAY | END 2021-12-01 00:35 | disposition home or self-care (01) | LOC: HO.MMNH1L 00:34 | PROVIDERS: Visit Provider Family Medicine | DX: Z13.89 Encounter for screening for other disorder (principal) ==

== ENCOUNTER 2022-01-15 14:05 | Inpatient (IN) | payer MEDICARE, MEDICAID, SELFPAY ==
[2022-01-15] VITALS (9 sets, daily range): BP systolic 85–132; BP diastolic 43–93; PULSE 49–84; RESP 12–22; TEMP 36.5–36.9; O2SAT 92–98; BMI 28.7
--- NOTE | 2022-01-15 | ECG_ITS ---
Test Reason : LOW HEART RATE Blood Pressure : / mmHG Vent. Rate : 058 BPM Atrial Rate : 000 BPM P-R Int : 000 ms QRS Dur : 116 ms QT Int : 462 ms P-R-T Axes : 000 -21 140 degrees QTc Int : 453 ms Atrial fibrillation with slow ventricular response with premature ventricular or aberrantly conducted complexes Inferior infarct , age undetermined Cannot rule out Anterior infarct , age undetermined ST & T wave abnormality, consider lateral ischemia Abnormal ECG When compared with ECG of 22-NOV-2021 08:48, Changes noted Referred By: Matthew Meza Electronically Signed By:ANDRZEJ VELAZQUEZ
--- NOTE | ~2022-01-15 | XR_ITS ---
EXAMINATION: XR CHEST CLINICAL INFORMATION: New pacer placement. COMPARISON: Chest 01/15/2022 TECHNIQUE: Frontal view of the chest was obtained. FINDINGS: There is mild to moderate right pleural effusion with right lower lobe atelectasis. The left lung is expanded and clear. Heart size and pulmonary vascularity is normal. There is a right central venous temporal dialysis catheter. There is a new left pacer electrodes in the right atrium and right ventricle. No gross bony abnormality seen. XR/XR chest 1V IMPRESSION: New pacer electrodes in right atrium and right ventricle. Moderate right pleural effusion is stable.
--- NOTE | ~2022-01-15 | XR_ITS ---
EXAMINATION: XR CHEST CLINICAL INFORMATION: Following pacemaker placement COMPARISON: 01/18/2022 TECHNIQUE: Frontal view of the chest was obtained. FINDINGS: There is Nogueira catheter present with the tip over the atriocaval junction. There is newly placed pacemaker with the benefit over the left apex and leads over the right atrium and ventricle. Cardiomediastinal silhouette is prominent. There are bilateral right more than left pleural effusion present mild increased interstitial markings XR/XR chest 1V IMPRESSION: Well-positioned support inclines. Bilateral right more than left pleural effusion.
--- NOTE | ~2022-01-15 | FL_ITS ---
EXAMINATION: XR FLUOROSCOPY WITH IMAGES CLINICAL INFORMATION: Dual-chamber pacemaker COMPARISON: CXR from 01/15/2022 TECHNIQUE: Fluoroscopy performed by Dr. Lawrence. Fluoroscopy time: 9.3 minutes DAP: 1.33 mGycm2 Images: 1 image is saved. FL/FL guidance in OR FINDINGS AND IMPRESSION: A limited single view from the procedure is saved. The tip of the dialysis catheter project over the right atrium. Interval placement of dual chamber cardiac pacemaker. The visualized leads terminate over the right atrium and apex of right ventricle.
--- NOTE | ~2022-01-15 | XR_ITS ---
EXAMINATION: XR CHEST CLINICAL INFORMATION: Shortness of breath COMPARISON: November 22, 2021 TECHNIQUE: AP portable view of the chest was obtained. FINDINGS: There is a moderate partially loculated right pleural effusion. The cardiopericardial silhouette is enlarged. No evidence of pulmonary edema. Right internal jugular dialysis catheter seen with tip in the region of the cavoatrial junction. No pneumothorax is seen. There appears to be some lingular disease present. XR/XR chest 1V IMPRESSION: Moderate right pleural effusion, similar to prior examination.. Bibasilar disease. Cardiomegaly without pulmonary edema.
--- NOTE | 2022-01-15 14:18 | ED_ITS ---
HPI - General Adult General Chief complaint: General Medical Stated complaint: HYPOTENSION RESOLVED Time Seen by Provider: 01/15/22 14:18 Source: patient and EMS Mode of arrival: EMS Limitations: no limitations History of Present Illness HPI narrative: 66-year-old male past medical history CAD on eliquis, CHF, AFib, HTN, DM, ESRD on dyalisis (Wednesday, , Wednesday) presents to emergency department with EMS from dialysis where patient was reported to be hypotensive and bradycardic with associated shortness of breath. According to patient he is always bradycardic and this is his baseline however his blood pressure is never low, and he never feels short of breath. He tells me he was about usp through dialysis when this occurred. He tells me at this time he feels short of breath even at rest. This is not typical for him. He also has concerns of left hand twitching which started about a week ago and has been worsening. Patient denies chest pain, nausea, vomiting, abdominal pain, fevers, chills. He tells me he is weak at baseline so this is nothing new. Patient tells me he makes very little urine. He has a suprapubic cath. Onset (ago): day(s) (1) Location: chest Radiation: non-radiation Severity: mild Relieving factors: immobilization Exacerbating factors: movement Treatments prior to arrival: none Related Data Home Medications Medication Instructions Recorded Confirmed acetaminophen 325 mg tablet 650 mg PO Q6H PRN 11/20/21 11/20/21 albuterol sulfate 90 mcg/actuation 2 puff INHALATION Q6H PRN 11/20/21 11/20/21 aerosol inhaler (ProAir HFA) amlodipine 5 mg tablet 7.5 mg PO DAILY 11/20/21 11/20/21 apixaban 2.5 mg tablet (Eliquis) 2.5 mg PO BID 11/20/21 11/20/21 cholecalciferol (vitamin D3) 1,250 1 cap PO SA 11/20/21 11/20/21 mcg (50,000 unit) capsule cyanocobalamin (vitamin B-12) 1,000 mcg PO DAILY 11/20/21 11/20/21 1,000 mcg tablet duloxetine 20 mg capsule,delayed 20 mg PO DAILY 11/20/21 11/20/21 release (Cymbalta) febuxostat 40 mg tablet (Uloric) 40 mg PO DAILY 11/20/21 11/20/21 insulin lispro 100 unit/mL 1 sliding scale dose SUBCUT 11/20/21 11/20/21 subcutaneous pen USEASDIRECTD sennosides 8.6 mg tablet (senna) 8.6 mg PO DAILY 11/20/21 11/20/21 sevelamer carbonate 800 mg tablet 1,600 mg PO TID 11/20/21 11/20/21 vitamin B complex and vitamin C 1 cap PO DAILY 11/20/21 11/20/21 no.20-folic acid 1 mg capsule Previous Rx's Medication Instructions Recorded azithromycin 500 mg tablet 500 mg PO DAILY 3 Days #3 tab 11/24/21 cefuroxime axetil 500 mg tablet 500 mg PO BID #5 tab 11/24/21 Allergies Allergy/AdvReac Type Severity Reaction Status Date / Time allopurinol Allergy Rash Verified 11/20/21 11:41 Review of Systems Review of Systems: Constitutional : No Weight loss, No Fever, No Chills, No Fatigue, No Malaise ENT/Mouth : No sore throat, No Rhinorrhea Eyes: No Eye Pain, No Swelling, No Redness Cardiovascular : No Chest Pain, No SOB, No Dyspnea on Exertion, No Orthopnea, No Edema, No Palpitations Respiratory : No Cough, No Sputum, No Wheezing Gastrointestinal : No Nausea, No Vomiting, No Diarrhea, No Constipation, No abdominal Pain, No Hematochezia, No Melena Genitourinary : No Dysuria, No Urinary Frequency, No Hematuria, Musculoskeletal : No joint pain, No Myalgias, No Joint Swelling Skin : No Skin Lesions, No rash Neuro : No Weakness, No Numbness, No Dizziness, No Headache Psych : No Anxiety/Panic, No Depression All other systems reviewed and are negative Yes all other systems are reviewed and are negative FOR[facility]LY [facility] Past Medical History Attestation statement: The following information was validated with the patient. Source: old records reviewed and nursing notes reviewed Medical History A-fib CAD (coronary artery disease) CHF (congestive heart failure) Chronic kidney disease (CKD) COVID-19 Diabetes ESRD on dialysis Gout HTN (hypertension) Prostate CA Social History Social History Household Members: None Household Members Other:: tenant next door Housing: House Do you presently have visiting nurse or other home services: Yes (visiting nurses set up) Alcohol intake: former Patient Tobacco Use Status: Never used Tobacco Use of substances other than those prescribed or required for medical reasons: No Advance Directives: No Advance Directives Information Provided: No Advance Directives Date on File: 11/20/21 service: No Physical Exam ED Vital Signs: Vital Signs - 24 hr 01/15/22 14:17 01/15/22 15:16 01/15/22 16:34 Temperature 97.7 F Pulse Rate 60 49 L 57 Respiratory Rate 22 H 12 12 Blood Pressure 122/50 L 129/60 Pulse Oximetry 98 BMI result Body Mass Index 28.7 VSS Appearance: Alert.? Oriented X3.? No acute distress.? Head: Normocephalic, atraumatic, no step-offs or deformities Eyes: Pupils equal, round and reactive to light.? ENT: Pharynx normal.? Neck: Normal inspection.? Neck supple.? CVS: Normal heart rate and rhythm.? Pulses normal.? Respiratory: No respiratory distress.? + bilateral crackles to lower lobe R>L Abdomen: Soft and nontender.? Skin: Skin warm and dry.? Normal skin color.? Normal skin turgor.? Extremities: 2 pitting edema to b/l le.? No calf ttp. 5/5 strength to bilateral upper and lower extremities Back: No midline tenderness, no C-spine tenderness, full range of motion, no CVA tenderness bilaterally Neuro: Oriented X 3.? No motor deficit.? No sensory deficit. CN 2-12 intact Course Reevaluation(s) Reevaluation #1: Patient is noted to have a leukocytosis, and macrocytic anemia. Patient's BUN 48, creatinine 5.36 this patient does have end-stage renal disease and is on dialysis his last dialysis was today however he did not get through the whole session. His potassium and magnesium within normal limits. Patient's BNP 823 patient will be given Lasix at this time. COVID negative. Urine pending. Patient's chest x-ray significant for a moderate right pleural effusion, bibasilar disease and cardiomegaly without pulmonary edema. Time: 15:59 Reevaluation #2: Spoke to renal who suggest IV lasix 100 mg and also recommends dialysis tomorrow. I will give lasix slowly as patients pressure is soft. Patient is requiring 2L oxygen. He dosent use O2 oxygen. I will speak to hospitalist for admission. Time: 16:14 Reevaluation #3: Patient noted to have a UTI. Patient was given antibiotics earlier. At this time patient will be admitted to the hospitalist team Dr. Browne will be given Lasix, ceftriaxone, and he will likely receive dialysis tomorrow. Time: 17:01 Medical Decision Making MDM Narrative Medical decision making narrative: 1435 66 yo m BIBA from dialysis where he was noted to be hypotensive, bradycardic, weak and experiencing shortness of breath Physical examination with 2+ pitting edema to bilateral lower extremities. Regular rate and rhythm. Crackle to b/l lower lobes. Abdomen soft nontender nondistended. Neuro exam nonfocal. He is noted to have a suprapubic catheter. Draining well. Plan at this time is to obtain basic labs, blood cultures, lactic acid, UA, chest x-ray. Will likely start patient on prophylactic antibiotics as he has bibasilar crackles. At this time a D-dimer will not be ordered as patient is low risk for DVT/PE he is currently anticoagulated on Eliquis. History and physical examination not consistent with DVT or PE. Patient not complaining of chest pain. For this reason a troponin was not ordered. At this time will hold on fluids as patient is noted to be in fluid overload. Medical Records Medical records reviewed: Yes I reviewed the patient's medical records. Lab Data Lab results reviewed: Yes I reviewed the patient's lab results. Result diagrams: 01/15/22 14:41 01/15/22 14:41 Labs: Lab Results 01/15/22 01/15/22 01/15/22 Range/Units 14:41 14:41 14:41 WBC 12.8 H (4.8-10.8) X10*3/uL RBC 3.10 L (4.60-5.80) X10*6/uL Hgb 10.1 L (14.0-18.0) g/dl Hct 32.5 L (42.0-52.0) % MCV 104.8 H (80.0-98.0) fL MCH 32.6 (27.0-33.0) pg MCHC 31.1 (31.0-36.0) g/dl RDW 17.2 H (11.0-16.0) % Plt Count 266 (160-400) X10*3/uL MPV 9.1 L (9.4-12.4) fL Immature Gran % (Auto) 0.5 H (0.0-0.4) % Neut % (Auto) 88.3 H (45-73) % Lymph % (Auto) 4.9 L (20-40) % Williams % (Auto) 4.5 (2-11) % Eos % (Auto) 1.4 (0-4) % Baso % (Auto) 0.4 (0-2) % Lymph # (Auto) 0.6 L (1.2-4.9) X10*3/uL Williams # (Auto) 0.6 (0.1-1.2) X10*3/uL Eos # (Auto) 0.2 (0.0-0.4) X10*3/uL Baso # (Auto) 0.1 (0.0-0.2) X10*3/uL Abs Immat Gran (auto) 0.06 H (0.00-0.03) X10*3/uL Absolute Neuts (auto) 11.3 H (2.0-8.3) x10*3/uL Absolute Nucleated RBC 0.000 (0.0-0.012) X10*3/uL Nucleated RBC % (auto) 0.0 (0.0-0.2) /100WBC Sodium 139 (135-145) mmol/L Potassium 4.0 (3.3-5.1) mmol/L Chloride 100 (96-108) mmol/L Carbon Dioxide 26 (22-29) mmol/L Anion Gap 17 (12-20) BUN 48 H (9-16) mg/dL Creatinine 5.36 H* (0.5-1.4) mg/dL Estim Creat Clear Calc 14.8 Estimated GFR 11 Random Glucose 126 H D (60-115) mg/dL Lactic Acid (0.5-2.0) mmol/L Calcium 8.9 (8.4-10.2) mg/dL Magnesium 2.1 (1.6-2.6) mg/dL Total Bilirubin 0.4 (0.0-1.0) mg/dL AST 20 D (5-37) U/L ALT 10 (0-40) U/L Alkaline Phosphatase 81 (39-117) U/L B-Natriuretic Peptide (<100) pg/mL Total Protein 7.0 (6.5-8.0) g/dL Albumin 3.0 L (3.5-5.0) g/dL Urine Color Urine Appearance Urine pH (5.0-8.0) Ur Specific [place] (1.005-1.025) Urine Protein (NEG-TRACE) MG/DL Urine Glucose (UA) (NEG) MG/DL Urine Ketones (NEG) MG/DL Urine Blood (NEG) Urine Nitrite (NEG) Ur Leukocyte Esterase (NEG) Urine RBC (0) /HPF Urine WBC (0-4) /HPF Ur Squamous Epith Cells /LPF Urine Bacteria /LPF COVID-19 ([facility]) Negative (Negative) COVID-19 Clin Com See Note 01/15/22 01/15/22 01/15/22 Range/Units 14:41 14:41 16:36 WBC (4.8-10.8) X10*3/uL RBC (4.60-5.80) X10*6/uL Hgb (14.0-18.0) g/dl Hct (42.0-52.0) % MCV (80.0-98.0) fL MCH (27.0-33.0) pg MCHC (31.0-36.0) g/dl RDW (11.0-16.0) % Plt Count (160-400) X10*3/uL MPV (9.4-12.4) fL Immature Gran % (Auto) (0.0-0.4) % Neut % (Auto) (45-73) % Lymph % (Auto) (20-40) % Williams % (Auto) (2-11) % Eos % (Auto) (0-4) % Baso % (Auto) (0-2) % Lymph # (Auto) (1.2-4.9) X10*3/uL Williams # (Auto) (0.1-1.2) X10*3/uL Eos # (Auto) (0.0-0.4) X10*3/uL Baso # (Auto) (0.0-0.2) X10*3/uL Abs Immat Gran (auto) (0.00-0.03) X10*3/uL Absolute Neuts (auto) (2.0-8.3) x10*3/uL Absolute Nucleated RBC (0.0-0.012) X10*3/uL Nucleated RBC % (auto) (0.0-0.2) /100WBC Sodium (135-145) mmol/L Potassium (3.3-5.1) mmol/L Chloride (96-108) mmol/L Carbon Dioxide (22-29) mmol/L Anion Gap (12-20) BUN (9-16) mg/dL Creatinine (0.5-1.4) mg/dL Estim Creat Clear Calc Estimated GFR Random Glucose (60-115) mg/dL Lactic Acid 1.2 (0.5-2.0) mmol/L Calcium (8.4-10.2) mg/dL Magnesium (1.6-2.6) mg/dL Total Bilirubin (0.0-1.0) mg/dL AST (5-37) U/L ALT (0-40) U/L Alkaline Phosphatase (39-117) U/L B-Natriuretic Peptide 823 H (<100) pg/mL Total Protein (6.5-8.0) g/dL Albumin (3.5-5.0) g/dL Urine Color BROWN A Urine Appearance CLOUDY Urine pH 6.5 (5.0-8.0) Ur Specific [place] 1.020 (1.005-1.025) Urine Protein 3+ H (NEG-TRACE) MG/DL Urine Glucose (UA) NEG (NEG) MG/DL Urine Ketones NEG (NEG) MG/DL Urine Blood 3+ H (NEG) Urine Nitrite POS H (NEG) Ur Leukocyte Esterase 3+ H (NEG) Urine RBC TNTC H (0) /HPF Urine WBC TNTC H (0-4) /HPF Ur Squamous Epith Cells NONE /LPF Urine Bacteria 2+ /LPF COVID-19 ([facility]) (Negative) COVID-19 Clin Com ECG Data Attestation: I personally reviewed and interpreted this ECG as follows: Prior ECG tracings: available for review Interpretation: EKG with a ventricular rate of 58, QRS normal, QT/QTC normal. EKG shows atrial fibrillation with slow ventricular response. There is an S and T wave abnormality in the lateral leads. When compared to EKG of December 13 sign ificant changes noted particularly in the lateral leads. Critical Care Time Critical Care Time Critical Care Time: Yes Total Critical Care Time: 35 Attestation: I attest to this time spent taking care of the patient obtaining history, physical exam, reviewing labs, imaging, speaking to renal, speaking to hospitalist Discharge Plan Discharge Clinical Impression: CHF (congestive heart failure), CKD (chronic kidney disease), Shortness of breath, Acute UTI Patient Disposition: Admitted As Inpatient Prescriptions: No Action amlodipine 5 mg Tablet 7.5 mg PO DAILY 0RF B complex with C 20-folic acid 1 mg Capsule 1 cap PO DAILY 0RF sennosides [senna] 8.6 mg Tablet 8.6 mg PO DAILY 0RF acetaminophen 325 mg Tablet 650 mg PO Q6H PRN (Reason: Pain) 0RF cyanocobalamin (vitamin B-12) 1,000 mcg Tablet 1,000 mcg PO DAILY 0RF albuterol sulfate [ProAir HFA] 90 mcg/actuation Hfa Aerosol Inhaler 2 puff INHALATION Q6H PRN (Reason: Wheezing) 0RF insulin lispro 100 unit/mL Insulin Pen 1 sliding scale dose SUBCUT USEASDIRECTD 0RF duloxetine [Cymbalta] 20 mg Capsule,Delayed Release(Dr/Ec) 20 mg PO DAILY 0RF cholecalciferol (vitamin D3) 1,250 mcg (50,000 unit) capsule 1 cap PO SA 0RF sevelamer carbonate 800 mg Tablet 1,600 mg PO TID 0RF febuxostat [Uloric] 40 mg Tablet 40 mg PO DAILY 0RF Eliquis 2.5 mg Tablet 2.5 mg PO BID 0RF cefuroxime axetil 500 mg tablet 500 mg PO BID Qty: 5 0RF azithromycin 500 mg tablet 500 mg PO DAILY 3 Days Qty: 3 0RF
--- NOTE | 2022-01-15 14:33 | PC.NURSE ---
[facility] Lashaun
[2022-01-15 14:47] LABS: MANUAL DIFF FLAG NO
[2022-01-15 14:49] LABS: Basophils Absolute Auto 0.1 X10*3/uL (0.0-0.2); Basophils Percent Auto 0.4 % (0-2); Eosinophils Absolute Auto 0.2 X10*3/uL (0.0-0.4); Eosinophils Percent Auto 1.4 % (0-4); Hematocrit 32.5 % (42.0-52.0); Hemoglobin 10.1 g/dl (14.0-18.0); Imm Gran Abs Auto 0.06 X10*3/uL (0.00-0.03); Imm Gran Pct Auto 0.5 % (0.0-0.4); Lymphocytes Absolute Auto 0.6 X10*3/uL (1.2-4.9); Lymphocytes Percent Auto 4.9 % (20-40); Mean Corpuscular HGB Conc 31.1 g/dl (31.0-36.0); Mean Corpuscular Hemoglobin 32.6 pg (27.0-33.0); Mean Corpuscular Volume 104.8 fL (80.0-98.0); Mean Platelet Volume 9.1 fL (9.4-12.4); Monocytes Absolute Auto 0.6 X10*3/uL (0.1-1.2); Monocytes Percent Auto 4.5 % (2-11); Neutrophils Absolute Auto 11.3 x10*3/uL (2.0-8.3); Neutrophils Percent Auto 88.3 % (45-73); Platelet Count 266 X10*3/uL (160-400); Red Cell Distribution Width 17.2 % (11.0-16.0); White Blood Count 12.8 X10*3/uL (4.8-10.8)
[2022-01-15 15:00] LABS: Lactic Acid 1.2 mmol/L (0.5-2.0)
[2022-01-15 15:03] LABS: COVID-19 Test Negative (Negative)
[2022-01-15 15:08] LABS: B Type Natriuretic Peptide 823 pg/mL (<100)
[2022-01-15] MEDS: cefTRIAXone sodium 1 GM in 0.9 % Sodium Chloride 50 ML IV (15:14)
[2022-01-15 15:25] LABS: Alanine Aminotransferase 10 U/L (0-40); Alkaline Phosphatase 81 U/L (39-117); Anion Gap 17 (12-20); Aspartate Amino Transferase 20 U/L (5-37); Bilirubin Total 0.4 mg/dL (0.0-1.0); Blood Urea Nitrogen 48 mg/dL (9-16); Calcium 8.9 mg/dL (8.4-10.2); Carbon Dioxide 26 mmol/L (22-29); Chloride 100 mmol/L (96-108); Creatinine Clr Calc Pharmacy 14.8; Estimated Glomerular Filt Rate 11; Glucose Random 126 mg/dL (60-115); Magnesium 2.1 mg/dL (1.6-2.6); Sodium 139 mmol/L (135-145)
[2022-01-15] MEDS: Furosemide 40 MG/4 ML VIAL IVPUSH (16:38)
[2022-01-15 16:44] LABS: Appearance Urine CLOUDY; Color Urine BROWN; Glucose Urine UA NEG (NEG); Leukocyte Esterase Urine 3+ (NEG); Nitrite Urine POS (NEG); PH 6.5 (5.0-8.0); UACC Culture Trigger YES; Urine Blood 3+ (NEG); Urine Ketones NEG (NEG); Urine Protein 3+ MG/DL (NEG-TRACE)
[2022-01-15 16:54] LABS: Bacteria Urine 2+ /LPF; RBC Urine TNTC /HPF (0); UACC CULT YES; WBC Urine TNTC /HPF (0-4)
--- NOTE | 2022-01-15 17:19 | PHA.MEDREC ---
Pharmacy Consult ? Medication Reconciliation Pharmacy has completed the medication reconciliation. Spoke with HCP, she states that he hasn't needed any lispro in weeks since his sugars have been under 149. The recently added medications are gabapentin 100 mg bid and they changed the amlodipine to 2.5 mg daily.
--- NOTE | 2022-01-15 18:08 | PM.IMHP ---
History of Present Illness Date of Service: 01/15/22 <JARVIS Humphries - Last Filed: 01/15/22 18:52> Attending physician on admission: Rafael Browne <JARVIS Humphries Last Filed: 01/15/22 18:52> Chief Complaint: syncope <JARVIS Humphries Last Filed: 01/15/22 18:52> This is a 66 with history of end-stage renal disease who was sent to the emergency. Triage notes indicated the patient became hypotensive and bradycardic and was sent to the emergency department for evaluation. On arrival his blood pressure was within normal limits. The patient states that at dialysis he ?got shaky . He said they leaned him back in his chair but he briefly lost consciousness. He denies any shortness of breath, chest pain or dizziness prior. He had approximately 1 hour of hemodialysis prior to this episode, dialysis was cut short and he was sent to the emergency department for evaluation. He denies any previous history of syncope. Lab work significant for leukocytosis 12.8 and otherwise unremarkable. Chest x-ray showing moderate right pleural effusion, similar to prior examination. EKG showing slow atrial fibrillation with heart rate 58, new T-wave inversions in leads 1 and aVL. No troponin was drawn but patient denies any chest pain. Urinalysis was consistent with UTI and he was given a dose of IV ceftriaxone. A decision was made to admit him to the hospital for further management of note after speaking with HCP, patient did not feel well after HD on Wednesday and was seen in the ED at [facility]. His workup there was reportedly unremarkable and he was discharged home. <JARVIS Humphries - Last Filed: 01/15/22 18:52> Review of Systems Review of Systems: Yes all other systems are reviewed and are negative <JARVIS Humphries Last Filed: 01/15/22 18:52> Constitutional: Constitutional: Denies chills and Denies fever(s) <JARVIS Humphries Last Filed: 01/15/22 18:52> Cardiovascular: Cardiovascular: Denies chest pain, Denies palpitations and Denies dyspnea <JARVIS Humphries Last Filed: 01/15/22 18:52> Respiratory: Respiratory: Denies dyspnea <JARVIS Humphries - Last Filed: 01/15/22 18:52> Endocrine: Endocrine: Denies palpitations <JARVIS Humphries - Last Filed: 01/15/22 18:52> [facility] Medical History: Medical History A-fib CAD (coronary artery disease) CHF (congestive heart failure) Chronic kidney disease (CKD) COVID-19 Diabetes ESRD on dialysis Gout 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 HTN (hypertension) Prostate CA Suprapubic catheter <JARVIS Humphries - Last Filed: 01/15/22 18:52> Functional capacity: independent ambulation <JARVIS Humphries - Last Filed: 01/15/22 18:52> Family History: Family History Father Renal failure <JARVIS Humphries - Last Filed: 01/15/22 18:52> Pertinent family history: father - history of ESRD on HD <JARVIS Humphries - Last Filed: 01/15/22 18:52> Social History: Social History Household Members: None Household Members Other:: tenant next door Housing: House Do you presently have visiting nurse or other home services: Yes (visiting nurses set up) Alcohol intake: former Patient Tobacco Use Status: Never used Tobacco Use of substances other than those prescribed or required for medical reasons: No Advance Directives: No Advance Directives Information Provided: No Advance Directives Date on File: 11/20/21 service: No <JARVIS Humphries - Last Filed: 01/15/22 18:52> Meds Allergies/Adverse reactions: Allergies Allergy/AdvReac Type Severity Reaction Status Date / Time allopurinol Allergy Rash Verified 11/20/21 11:41 <JARVIS Humphries - Last Filed: 01/15/22 18:52> Active Medications: Current Medications Acetaminophen (Acetaminophen 325 Mg Tablet) 650 mg PO Q6H PRN PRN Reason: Pain, Mild (Pain Scale 1-3) Dextrose (Dextrose 50 % 25 Gm/50 Ml Syringe) 25 gm IVPUSH Q15M PRN; Protocol PRN Reason: per Hypoglycemia Standing Ord. Docusate Sodium (Docusate Sodium 100 Mg Capsule) 100 mg PO DAILY PRN PRN Reason: Constipation Glucose (Glucose Gel 15 Gm Gel..Gram.) 15 gm PO Q15M PRN; Protocol PRN Reason: per Hypoglycemia Standing Ord. Insulin Human Lispro (Insulin Lispro 100 Unit/Ml 3 Ml Vial) 0 unit SUBCUT [facility]; Protocol Pharmacy Consult (Consult Rx Perform Med Rec) 1 each MISCELLANE ONCE PRN PRN Reason: Consult order Sodium Chloride (0.9 % Sodium Chloride Flush 3 Ml Syringe) 3 ml IVFLUSH [facility] <JARVIS Humphries - Last Filed: 01/15/22 18:52> Home medications: Home Medications Medication Instructions Recorded Confirmed Last Taken Type acetaminophen 325 mg tablet 650 mg PO Q6H PRN 11/20/21 01/15/22 11/19/21 History albuterol sulfate 90 mcg/actuation 2 puff INHALATION Q6H PRN 11/20/21 01/15/22 11/19/21 History aerosol inhaler (ProAir HFA) apixaban 2.5 mg tablet (Eliquis) 2.5 mg PO BID 11/20/21 01/15/22 11/19/21 History cholecalciferol (vitamin D3) 1,250 1 cap PO SA 11/20/21 01/15/22 11/19/21 History mcg (50,000 unit) capsule cyanocobalamin (vitamin B-12) 1,000 mcg PO DAILY 11/20/21 01/15/22 11/19/21 History 1,000 mcg tablet duloxetine 20 mg capsule,delayed 20 mg PO DAILY 11/20/21 01/15/22 11/19/21 History release (Cymbalta) febuxostat 40 mg tablet (Uloric) 40 mg PO DAILY 11/20/21 01/15/22 11/19/21 History insulin lispro 100 unit/mL 1 sliding scale dose SUBCUT 11/20/21 01/15/22 11/19/21 History subcutaneous pen USEASDIRECTD sevelamer carbonate 800 mg tablet 1,600 mg PO TID 11/20/21 01/15/22 11/19/21 History amlodipine 2.5 mg tablet 1 tab PO DAILY 01/15/22 01/15/22 Unknown History gabapentin 100 mg capsule 1 tab PO BID 01/15/22 01/15/22 Unknown History vitamin B complex-vitamin C-folic 1 tab PO DAILY 01/15/22 01/15/22 Unknown History acid 0.8 mg tablet (Isaura-Gabrielle) <JARVIS Humphries - Last Filed: 01/15/22 18:52> Physical Exam Vital Signs and Narrative: Vital Signs: Last Vital Signs Temp 97.7 F 01/15/22 14:17 Pulse 57 01/15/22 16:34 Resp 12 01/15/22 16:34 BP 129/60 01/15/22 16:34 Pulse Ox 98 01/15/22 15:16 Oxygen Flow Rate 2 01/15/22 14:17 BMI result Body Mass Index 28.7 <JARVIS Humphries - Last Filed: 01/15/22 18:52> Const: General: cooperative, comfortable, no acute distress, alert and awake <JARVIS Humphries - Last Filed: 01/15/22 18:52> Nutritional Appearance: average body habitus <JARVIS Humphries - Last Filed: 01/15/22 18:52> Chest: Other: dialysis cath present right chest wall <JARVIS Humphries Last Filed: 01/15/22 18:52> Resp: Other: diminished right base, otherwise clear to auscultation <JARVIS Humphries - Last Filed: 01/15/22 18:52> Effort & Inspection: normal respiratory effort and able to speak in complete sentences <JARVIS Humphries Last Filed: 01/15/22 18:52> Cardio: Rate: bradycardic <JARVIS Humphries - Last Filed: 01/15/22 18:52> Rhythm: abnormal rhythm <JARVIS Humphries Last Filed: 01/15/22 18:52> GI: Inspection: No distended <JARVIS Humphries Last Filed: 01/15/22 18:52> Palpation (GI): Soft to palpation and nontender <JARVIS Humphries - Last Filed: 01/15/22 18:52> : Other: Suprapubic catheter present <JARVIS Humphries - Last Filed: 01/15/22 18:52> Extrem: Other: no leg edema <JARVIS Humphries - Last Filed: 01/15/22 18:52> Results Labs CBC and Chem 7: : 01/16/22 13:01 01/16/22 13:01 <JARVIS Humphries - Last Filed: 01/15/22 18:52> Labs: Laboratory Results - last 24 hr 01/15/22 01/15/22 01/15/22 14:41 14:41 14:41 MCV 104.8 H MCH 32.6 MCHC 31.1 RDW 17.2 H Plt Count 266 MPV 9.1 L Immature Gran % (Auto) 0.5 H Neut % (Auto) 88.3 H Lymph % (Auto) 4.9 L [place] % (Auto) 4.5 Eos % (Auto) 1.4 Baso % (Auto) 0.4 Lymph # (Auto) 0.6 L [place] # (Auto) 0.6 Eos # (Auto) 0.2 Baso # (Auto) 0.1 Abs Immat Gran (auto) 0.06 H Absolute Neuts (auto) 11.3 H Absolute Nucleated RBC 0.000 Nucleated RBC % (auto) 0.0 Anion Gap 17 Estim Creat Clear Calc 14.8 Estimated GFR 11 Random Glucose 126 H D Lactic Acid Calcium 8.9 Magnesium 2.1 Total Bilirubin 0.4 AST 20 D ALT 10 Alkaline Phosphatase 81 B-Natriuretic Peptide Total Protein 7.0 Albumin 3.0 L Urine Color Urine Appearance Urine pH Ur Specific [place] Urine Protein Urine Glucose (UA) Urine Ketones Urine Blood Urine Nitrite Ur Leukocyte Esterase Urine RBC Urine WBC Ur Squamous Epith Cells Urine Bacteria COVID-19 ([facility]) Negative COVID-19 Clin Com See Note 01/15/22 01/15/22 01/15/22 14:41 14:41 16:36 MCV MCH MCHC RDW Plt Count MPV Immature Gran % (Auto) Neut % (Auto) Lymph % (Auto) [place] % (Auto) Eos % (Auto) Baso % (Auto) Lymph # (Auto) [place] # (Auto) Eos # (Auto) Baso # (Auto) Abs Immat Gran (auto) Absolute Neuts (auto) Absolute Nucleated RBC Nucleated RBC % (auto) Anion Gap Estim Creat Clear Calc Estimated GFR Random Glucose Lactic Acid 1.2 Calcium Magnesium Total Bilirubin AST ALT Alkaline Phosphatase B-Natriuretic Peptide 823 H Total Protein Albumin Urine Color BROWN A Urine Appearance CLOUDY Urine pH 6.5 Ur Specific [place] 1.020 Urine Protein 3+ H Urine Glucose (UA) NEG Urine Ketones NEG Urine Blood 3+ H Urine Nitrite POS H Ur Leukocyte Esterase 3+ H Urine RBC TNTC H Urine WBC TNTC H Ur Squamous Epith Cells NONE Urine Bacteria 2+ COVID-19 ([facility]) COVID-19 Clin Com <JARVIS Humphries - Last Filed: 01/15/22 18:52> Imaging Radiologist's Impressions: Impressions Chest X-Ray 01/15/22 14:48 IMPRESSION: Moderate right pleural effusion, similar to prior examination.. Bibasilar disease. Cardiomegaly without pulmonary edema. <JARVIS Humphries - Last Filed: 01/15/22 18:52> Assessment and Plan (1) Syncope: Status: Acute <JARVIS Humphries - Last Filed: 01/15/22 18:52> (2) A-fib: Status: Acute <JARVIS Humphries - Last Filed: 01/15/22 18:52> (3) ESRD on dialysis: Status: Acute <JARVIS Humphries - Last Filed: 01/15/22 18:52> Plan This is a 66-year-old male with history of ESRD on HD ([place]), atrial fibrillation Eliquis, CHF, CAD chronic suprapubic catheter sent to the emergency department from dialysis due to hypotension and bradycardia with question syncope Possible Syncope Reportedly bradycardic and hypotensive at dialysis Heart rate in the emergency department as low as 44. No evidence of hypotension emergency department -echocardiogram -check orthostatic blood pressure -cardiology consult chronic atrial fibrillation with slow ventricular response Heart rate as low as 44 in the ED. Patient reports chronic bradycardia with heart rate in the 30s at times Not on any rate lowering medication -continue anticoagulation with Eliquis, renally dosed -tele monitoring Hypertension Given hypotensive episode at dialysis, will hold Norvasc (dose of norvasc recently decreased to 2.5) Monitor blood pressure closely UTI Related to chronic suprapubic catheter No evidence of sepsis History of MDR Pseudomonas aeruginosa -will start meropenem -ID consult Radiation cystitis/Uretheral stricture/ Urinary retention s/p suprapubic catheter (changed on 01/13) followed by Dr. Curiel recently started on gabapentin for ?component of neuropathic pain ESRD on HD ,, Sa partial HD today -nephrology consult Right pleural effusion doesn't seem to be symptomatic at this time monitor respiratory status closely Diabetes Not on baseline meds -check HbA1c -SSI, POCs Code status- full code [phone], very involved and knowledgeable about medical history. called and updated Attending - Dr. Browne <JARVIS Humphries - Last Filed: 01/15/22 18:52> Quality Stroke Does the patient have a stroke diagnosis?: No <JARVIS Humphries - Last Filed: 01/15/22 18:52> VTE Prior VTE?: No <JARVIS Humphries - Last Filed: 01/15/22 18:52> VTE Risk Level:: Medical - moderate - high <JARVIS Humphries - Last Filed: 01/15/22 18:52> VTE Device Contraindication: N/A - Device Ordered <JARVIS Humphries - Last Filed: 01/15/22 18:52> VTE Drug Contraindication: N/A - Med Ordered <JARVIS Humphries - Last Filed: 01/15/22 18:52>
[2022-01-15 18:28] LABS: Glucose, Whole Blood 119 mg/dL (60-115)
[2022-01-15 18:32] LABS: Troponin-I High Sensitivity 37.5 ng/L (<3.5-35.0)
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
[2022-01-15 19:22] LABS: Troponin-I High Sensitivity 55.6 ng/L (<3.5-35.0)
[2022-01-15] MEDS: Sevelamer Carbonate Tablet 800 MG TABLET 1600 MG PO (20:30)
[2022-01-15] MEDS: Apixaban 2.5 MG TABLET PO (20:30)
[2022-01-15 21:23] LABS: Glucose, Whole Blood 164 mg/dL (60-115)
[2022-01-15] MEDS: Gabapentin 100 MG CAPSULE PO (21:25)
[2022-01-15] MEDS: Insulin Lispro 100 UNIT/ML 3 ML VIAL SUBCUT (21:37)
[2022-01-16 02:00] VITALS: PULSE 60; RESP 24; O2SAT 94
--- NOTE | 2022-01-16 06:41 | PC.NURSE ---
Patient's iv was found in the bed at 0642. Patient will need access before his next antibiotic
[2022-01-16 06:46] VITALS: BP 118/45; PULSE 50; RESP 20; TEMP 36.8; O2SAT 92
[2022-01-16 07:05] LABS: Estimated Average Glucose 126 mg/dL
[2022-01-16 07:39] LABS: Glucose, Whole Blood 131 mg/dL (60-115)
--- NOTE | 2022-01-16 08:00 | CA_ITS ---
Transthoracic Echocardiogram Patient (Last, First, Middle): Jarrett Montoya E Gender: Male Date of : 1955 Age: 66 Procedure Date: 01/16/2022 Procedure Type: Transthoracic Echocardiogram Location: ER Height: 172.72 cm Weight: 85.73 kg BSA: 2.00 m2 Heart Rate: bpm BP: 118 / 45 mmHg Printing Specialist: Referring MD: Anahy CONLEY Symptoms: syncope Study Quality: Fair ECG Rhythm: Sinus Conclusions: - The left ventricular systolic function is low normal. The calculated ejection fraction is 54% by biplane method. - Moderately increased right ventricular cavity size. - There is mild mitral valve regurgitation. - There is mild tricuspid valve regurgitation. - Mild pulmonary hypertension is present. Findings Left Ventricle Normal left ventricular cavity size. There is mildly increased left ventricular wall thickness. The left ventricular systolic function is low normal. The calculated ejection fraction is 54% by biplane method. There is no evidence of regional wall motion abnormalities. E/E prime ratio is between 8 and 15 consistent with indeterminate filling pressures. Evidence suggests grade II (moderate) diastolic dysfunction. Right Ventricle Moderately increased right ventricular cavity size. There is normal right ventricular systolic function. Atria The left atrium is severely dilated. The right atrium is mildly dilated. Aortic Valve There is a normal trileaflet aortic valve. There is no aortic valve stenosis. There is trace (trivial) aortic valve regurgitation. Mitral Valve The mitral valve appears normal. There is mild mitral valve regurgitation. There is no mitral valve stenosis. Pulmonic Valve The pulmonic valve was not well visualized. Tricuspid Valve Normal tricuspid valve structure. There is mild tricuspid valve regurgitation. The right ventricular systolic pressure is 43 mmHg. Mild pulmonary hypertension is present. Great Vessels The aortic annulus, sinuses of valsalva, and asc aorta are normal in size. Venous The inferior vena cava is normal in size and collapses greater than 50% with inspiration. Pericardium/Pleural There is no evidence of pericardial effusion. Prior Study Comparison No prior study available for comparison. Measurements 2D Linear Measurements IVSd: 1.20 0.6-0.9/0.6-1.0 cm LVIDd: 5.46 3.9-5.3/4.2-5.9 cm LVIDd Index: 2.73 2.4-3.2/2.2-3.1 cm/m2 LVIDs: 3.76 2.0-3.6 cm LVPWd: 1.20 0.7-1.1 cm Ao Root: 3.40 2.1-3.5 cm LA Diam: 5.00 2.7-3.8/3.0-4.0 cm LAIDs Index: 2.50 1.5-2.3 cm/m2 LV Mass: 335.73 67-162/88-224 g LV Mass Index: 167.86 43-95/49-115 g/m2 LVOT Diam: 2.40 3.0+(-)1.3 cm 2D Systolic Function EF 4C: 55.40 >55% EF 2C: 52.90 >55% EF BiP: 53.70 >55% Mitral Valve MV Pk E: 1.20 MV PK A: 0.59 MV Decel Time: 298.00 E/A: 2.00 E'Lateral: 18.60 E'Medial: 8.49 E/E' Med: 14.10 E/E' Lat: 6.50 PHT: 87.00 MVA PHT: 2.53 Decel [place]: 4.05 Aortic Valve AoV Pk Dario: 1.57 AoV Mn Dario: 0.96 AoV VTI: 0.29 AoV Pk Grad: 10.00 Aov Mn Grad: 5.00 VERO Cont.VTI: 2.59 LVOT LVOT Pk Dario: 0.74 LVOT Mn Dario: 0.46 LVOT VTI: 0.17 LVOT Pk Grad: 2.00 LVOT Mn Grad: 1.00 LVOT Diam: 2.40 LVOT Area: 4.52 Diastolic Function MV Pk E: 1.20 MV Pk A: 0.59 E/A: 2.00 E'Medial: 8.49 E/E' Med: 14.10 E' Laterial: 18.60 E/E' Lat: 6.50 Right Ventricle TAPSE (mm): 23.00 TVS' Dario: 15.00 Tricuspid Valve TR Pk Dario: 3.14 TR Pk Grad: 39.00 RVSP: 43.00 Great Vessels Aorta Ao Root-2D: 3.40 2.0-3.7 cm Ao Asc: 3.40 2.1-3.4 cm Pulmonary Valve PV Pk Dario: 1.27 Peak PV Grad: 6.00 Updated in Other Vendor System with Status of Final Sivakumar Zendejas MD electronically signed on 01/16/2022 1:59:32 PM with status of Final
[2022-01-16 08:03] VITALS: BP 102/51; PULSE 57; RESP 15; O2SAT 93
[2022-01-16] MEDS: DULoxetine HCl 20 MG CAPSULE.DR PO (08:38)
[2022-01-16] MEDS: Multivitamin TABLET 1 TAB PO (08:39)
[2022-01-16] MEDS: Sevelamer Carbonate Tablet 800 MG TABLET 1600 MG PO ×3 (08:39→21:31)
[2022-01-16] MEDS: Gabapentin 100 MG CAPSULE PO ×2 (08:39→21:31)
[2022-01-16] MEDS: Cyanocobalamin (Vitamin B-12) 1,000 MCG TABLET 1000 MCG PO (08:48)
[2022-01-16] MEDS: Apixaban 2.5 MG TABLET PO ×2 (09:46→21:31)
--- NOTE | 2022-01-16 11:29 | P.CONCA_ITS ---
History of Present Illness History of Present Illness Date of Service: 01/16/22 Chief complaint: HYPOTENSION RESOLVED Narrative: This is a cardiology consultation regarding bradycardia and hypotension. Patient has a history of end-stage renal disease. He is on hemodialysis. It appears that during dialysis, he apparently had low blood pressure and heart rate and for a moment or so, he possibly became syncopal as well. Unclear if actually lost consciousness or not. However denies any other complaints like angina or shortness of breath or anything else. Prior to the onset of symptoms, he had about 1 hour hemodialysis. Subsequently, he was sent to the ER for admission. At this time, he states that he is doing good. Otherwise in the past, he has not had any cardiac symptoms or issues according to him. No known coronary disease or myocardial infarction or cardiomyopathy or in fact anything else cardiac related. Review of Systems Review of Systems: Yes all other systems are reviewed and are negative Cardiovascular: Cardiovascular: Reports as per HPI, Reports no additional cardiovascular complaints, Denies acrocyanosis, Denies cool extremities, Denies chest pain, Denies diaphoresis, Denies syncope, Denies claudication, Denies leg edema, Reports lightheadedness, Denies palpitations and Denies dyspnea Respiratory: Respiratory: Denies dyspnea Neurologic: Denies syncope Endocrine: Endocrine: Denies palpitations PMF Past Medical History Medical History (Updated 01/16/22 @ 11:35 by Sivakumar Zendejas MD) A-fib CAD (coronary artery disease) CHF (congestive heart failure) Chronic kidney disease (CKD) COVID-19 Diabetes ESRD on dialysis Gout 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 HTN (hypertension) Prostate CA Suprapubic catheter Functional capacity: independent ambulation Family History Family History (Updated 01/16/22 @ 11:33 by Sivakumar Zendejas MD) Father Renal failure Social History Social History Household Members: None Household Members Other:: tenant next door Housing: House Do you presently have visiting nurse or other home services: Yes (visiting nurses set up) Alcohol intake: former Patient Tobacco Use Status: Never used Tobacco Use of substances other than those prescribed or required for medical reasons: No Advance Directives: No Advance Directives Information Provided: No Advance Directives Date on File: 12/30/21 service: No Meds Allergies Allergy/AdvReac Type Severity Reaction Status Date / Time allopurinol Allergy Rash Verified 11/20/21 11:41 Active Medications: Current Medications Acetaminophen (Acetaminophen 325 Mg Tablet) 650 mg PO Q6H PRN PRN Reason: Pain, Mild (Pain Scale 1-3) Albuterol Sulfate (Albuterol Sulfate 90 Mcg 8 Gm Inhaler) 2 puff INHALE Q6H PRN PRN Reason: Wheezing Apixaban (Apixaban 2.5 Mg Tablet) 2.5 mg PO BID [facility] Last Admin: 01/16/22 09:46 Dose: 2.5 mg Documented by: Cyanocobalamin (Cyanocobalamin (Vitamin B-12) 1,000 Mcg Tablet) 1,000 mcg PO DAILY [facility] Last Admin: 01/16/22 08:48 Dose: 1,000 mcg Documented by: Dextrose (Dextrose 50 % 25 Gm/50 Ml Syringe) 25 gm IVPUSH Q15M PRN; Protocol PRN Reason: per Hypoglycemia Standing Ord. Docusate Sodium (Docusate Sodium 100 Mg Capsule) 100 mg PO DAILY PRN PRN Reason: Constipation Duloxetine HCl (Duloxetine Hcl 20 Mg Capsule.Dr) 20 mg PO DAILY [facility] Last Admin: 01/16/22 08:38 Dose: 20 mg Documented by: Ergocalciferol (Ergocalciferol (Vitamin D2) 1,250 Mcg Capsule) 1,250 mcg PO SA [facility] Gabapentin (Gabapentin 100 Mg Capsule) 100 mg PO BID [facility] Last Admin: 01/16/22 08:39 Dose: 100 mg Documented by: Glucose (Glucose Gel 15 Gm Gel..Gram.) 15 gm PO Q15M PRN; Protocol PRN Reason: per Hypoglycemia Standing Ord. Meropenem 500 mg/ Sodium (Chloride) 50 mls @ 100 mls/hr IV Q24H [facility] Insulin Human Lispro (Insulin Lispro 100 Unit/Ml 3 Ml Vial) 0 unit SUBCUT QIDACHS [facility]; Protocol Last Admin: 01/16/22 07:41 Dose: Not Given Documented by: Multivitamins/Vitamin C (Multivitamin Tablet) 1 tab PO DAILY [facility] Last Admin: 01/16/22 08:39 Dose: 1 tab Documented by: Non-Formulary Medication (Febuxostat [Uloric]) 40 mg PO DAILY [facility] Pharmacy Consult (Consult Rx Perform Med Rec) 1 each MISCELLANE ONCE PRN PRN Reason: Consult order Sevelamer Carbonate (Sevelamer Carbonate Tablet 800 Mg Tablet) 1,600 mg PO TID [facility] Last Admin: 01/16/22 08:39 Dose: 1,600 mg Documented by: Sodium Chloride (0.9 % Sodium Chloride Flush 3 Ml Syringe) 3 ml IVFLUSH QSHIFT [facility] Last Admin: 01/16/22 07:23 Dose: Not Given Documented by: Home Medications Medication Instructions Recorded Confirmed Last Taken Type acetaminophen 325 mg tablet 650 mg PO Q6H PRN 11/20/21 01/15/22 11/19/21 History albuterol sulfate 90 mcg/actuation 2 puff INHALATION Q6H PRN 11/20/21 01/15/22 11/19/21 History aerosol inhaler (ProAir HFA) apixaban 2.5 mg tablet (Eliquis) 2.5 mg PO BID 11/20/21 01/15/22 11/19/21 History cholecalciferol (vitamin D3) 1,250 1 cap PO SA 11/20/21 01/15/22 11/19/21 History mcg (50,000 unit) capsule cyanocobalamin (vitamin B-12) 1,000 mcg PO DAILY 11/20/21 01/15/22 11/19/21 History 1,000 mcg tablet duloxetine 20 mg capsule,delayed 20 mg PO DAILY 11/20/21 01/15/22 11/19/21 History release (Cymbalta) febuxostat 40 mg tablet (Uloric) 40 mg PO DAILY 11/20/21 01/15/22 11/19/21 History insulin lispro 100 unit/mL 1 sliding scale dose SUBCUT 11/20/21 01/15/22 11/19/21 History subcutaneous pen USEASDIRECTD sevelamer carbonate 800 mg tablet 1,600 mg PO TID 11/20/21 01/15/22 11/19/21 History amlodipine 2.5 mg tablet 1 tab PO DAILY 01/15/22 01/15/22 Unknown History gabapentin 100 mg capsule 1 tab PO BID 01/15/22 01/15/22 Unknown History vitamin B complex-vitamin C-folic 1 tab PO DAILY 01/15/22 01/15/22 Unknown History acid 0.8 mg tablet (Isaura-Gabrielle) Physical Exam Vital Signs: Vital Signs: Last Vital Signs Temp 98.3 F 01/16/22 06:46 Pulse 57 01/16/22 08:03 Resp 15 01/16/22 08:03 BP 102/51 L 01/16/22 08:03 Pulse Ox 93 01/16/22 08:03 Oxygen Flow Rate 2 01/15/22 14:17 BMI result Body Mass Index 28.7 Const: General: comfortable HENMT: Other: Unremarkable Neck: Neck: Yes normal visual inspection Chest: Chest palpation & inspection: normal inspection of the chest Resp: Auscultation: clear to auscultation bilaterally Cardio: Palpation: normal PMI Heart sounds: S1 normal heart sound present, S2 normal heart sound present, no gallops, no murmurs and no rubs GI: Palpation (GI): Soft to palpation Back/Spine/Pelvis: Other: unremarkable Skin: Lesions: other Neuro: General: other Extrem: General: Yes other Psych: Mental Status: other Objective Labs and Meds Result diagrams: 01/15/22 14:41 01/15/22 14:41 Lab results: Laboratory Results - last 24 hr 01/15/22 01/15/22 01/15/22 14:41 14:41 14:41 WBC 12.8 H RBC 3.10 L Hgb 10.1 L Hct 32.5 L MCV 104.8 H MCH 32.6 MCHC 31.1 RDW 17.2 H Plt Count 266 MPV 9.1 L Immature Gran % (Auto) 0.5 H Neut % (Auto) 88.3 H Lymph % (Auto) 4.9 L [place] % (Auto) 4.5 Eos % (Auto) 1.4 Baso % (Auto) 0.4 Lymph # (Auto) 0.6 L [place] # (Auto) 0.6 Eos # (Auto) 0.2 Baso # (Auto) 0.1 Abs Immat Gran (auto) 0.06 H Absolute Neuts (auto) 11.3 H Absolute Nucleated RBC 0.000 Nucleated RBC % (auto) 0.0 Sodium 139 Potassium 4.0 Chloride 100 Carbon Dioxide 26 Anion Gap 17 BUN 48 H Creatinine 5.36 H* Estim Creat Clear Calc 14.8 Estimated GFR 11 POC Glucose Random Glucose 126 H D Estimat Average Glucose Hemoglobin A1c % Lactic Acid Calcium 8.9 Magnesium 2.1 Total Bilirubin 0.4 AST 20 D ALT 10 Alkaline Phosphatase 81 Troponin I High Sens B-Natriuretic Peptide Total Protein 7.0 Albumin 3.0 L Urine Color Urine Appearance Urine pH Ur Specific [place] Urine Protein Urine Glucose (UA) Urine Ketones Urine Blood Urine Nitrite Ur Leukocyte Esterase Urine RBC Urine WBC Ur Squamous Epith Cells Urine Bacteria COVID-19 ([facility]) Negative COVID-19 Clin Com See Note 01/15/22 01/15/22 01/15/22 14:41 14:41 14:41 WBC RBC Hgb Hct MCV MCH MCHC RDW Plt Count MPV Immature Gran % (Auto) Neut % (Auto) Lymph % (Auto) [place] % (Auto) Eos % (Auto) Baso % (Auto) Lymph # (Auto) [place] # (Auto) Eos # (Auto) Baso # (Auto) Abs Immat Gran (auto) Absolute Neuts (auto) Absolute Nucleated RBC Nucleated RBC % (auto) Sodium Potassium Chloride Carbon Dioxide Anion Gap BUN Creatinine Estim Creat Clear Calc Estimated GFR POC Glucose Random Glucose Estimat Average Glucose Hemoglobin A1c % Lactic Acid 1.2 Calcium Magnesium Total Bilirubin AST ALT Alkaline Phosphatase Troponin I High Sens 37.5 H D B-Natriuretic Peptide 823 H Total Protein Albumin Urine Color Urine Appearance Urine pH Ur Specific [place] Urine Protein Urine Glucose (UA) Urine Ketones Urine Blood Urine Nitrite Ur Leukocyte Esterase Urine RBC Urine WBC Ur Squamous Epith Cells Urine Bacteria COVID-19 ([facility]) COVID-19 Clin Com 01/15/22 01/15/22 01/15/22 16:36 18:24 18:58 WBC RBC Hgb Hct MCV MCH MCHC RDW Plt Count MPV Immature Gran % (Auto) Neut % (Auto) Lymph % (Auto) [place] % (Auto) Eos % (Auto) Baso % (Auto) Lymph # (Auto) [place] # (Auto) Eos # (Auto) Baso # (Auto) Abs Immat Gran (auto) Absolute Neuts (auto) Absolute Nucleated RBC Nucleated RBC % (auto) Sodium Potassium Chloride Carbon Dioxide Anion Gap BUN Creatinine Estim Creat Clear Calc Estimated GFR POC Glucose 119 H Random Glucose Estimat Average Glucose 126 Hemoglobin A1c % 6.0 Lactic Acid Calcium Magnesium Total Bilirubin AST ALT Alkaline Phosphatase Troponin I High Sens B-Natriuretic Peptide Total Protein Albumin Urine Color BROWN A Urine Appearance CLOUDY Urine pH 6.5 Ur Specific [place] 1.020 Urine Protein 3+ H Urine Glucose (UA) NEG Urine Ketones NEG Urine Blood 3+ H Urine Nitrite POS H Ur Leukocyte Esterase 3+ H Urine RBC TNTC H Urine WBC TNTC H Ur Squamous Epith Cells NONE Urine Bacteria 2+ COVID-19 ([facility]) COVID-19 Clin Com 01/15/22 01/15/22 01/16/22 18:58 21:19 07:29 WBC RBC Hgb Hct MCV MCH MCHC RDW Plt Count MPV Immature Gran % (Auto) Neut % (Auto) Lymph % (Auto) [place] % (Auto) Eos % (Auto) Baso % (Auto) Lymph # (Auto) [place] # (Auto) Eos # (Auto) Baso # (Auto) Abs Immat Gran (auto) Absolute Neuts (auto) Absolute Nucleated RBC Nucleated RBC % (auto) Sodium Potassium Chloride Carbon Dioxide Anion Gap BUN Creatinine Estim Creat Clear Calc Estimated GFR POC Glucose 164 H 131 H Random Glucose Estimat Average Glucose Hemoglobin A1c % Lactic Acid Calcium Magnesium Total Bilirubin AST ALT Alkaline Phosphatase Troponin I High Sens 55.6 H B-Natriuretic Peptide Total Protein Albumin Urine Color Urine Appearance Urine pH Ur Specific [place] Urine Protein Urine Glucose (UA) Urine Ketones Urine Blood Urine Nitrite Ur Leukocyte Esterase Urine RBC Urine WBC Ur Squamous Epith Cells Urine Bacteria COVID-19 ([facility]) COVID-19 Clin Com ECG Interpretation: EKG shows atrial fibrillation at 58/Min; PVCs. Cannot exclude old inferior infarct or anterior infarct. Imaging Radiologist's impression: Impressions Chest X-Ray 01/15/22 14:48 IMPRESSION: Moderate right pleural effusion, similar to prior examination.. Bibasilar disease. Cardiomegaly without pulmonary edema. Assessment and Plan (1) Atrial fibrillation with slow ventricular response: Status: Acute (2) Junctional bradycardia: Status: Acute (3) Syncope: Status: Acute (4) ESRD on dialysis: Status: Acute Plan In the previous EKG from November, he had junctional bradycardia in the 30s. In the current EKG, he is in atrial fibrillation with relatively slow rate but not profound. On telemetry, he seems to have junctional rhythm in the 50s. Overall, it is possible that conduction system disease is leading to syncopal type symptoms during dialysis but not definitive. He will need to be monitored on telemetry for another day or so. May need Holter monitor in the outpatient setting. Based on this, need to decide on permanent pacemaker. Will follow up with you. Labs reviewed-high sensitivity troponins-37 and 55. Cardiac BNP 823. Chest [id number] right pleural effusion; bibasilar disease; cardiomegaly. Echo- pending. Procedures Date of Service Date of Service: 01/16/22
[2022-01-16 11:58] VITALS: BP 122/50; PULSE 50; RESP 20; O2SAT 93
[2022-01-16 12:33] LABS: Glucose, Whole Blood 137 mg/dL (60-115)
[2022-01-16 13:10] LABS: Hematocrit 29.6 % (42.0-52.0); Hemoglobin 9.2 g/dl (14.0-18.0); Mean Corpuscular HGB Conc 31.1 g/dl (31.0-36.0); Mean Corpuscular Hemoglobin 32.6 pg (27.0-33.0); Mean Platelet Volume 8.9 fL (9.4-12.4); Platelet Count 231 X10*3/uL (160-400); Red Blood Count 2.82 X10*6/uL (4.60-5.80); Red Cell Distribution Width 17.3 % (11.0-16.0); White Blood Count 10.8 X10*3/uL (4.8-10.8)
[2022-01-16 13:33] LABS: Anion Gap 17 (12-20); Blood Urea Nitrogen 68 mg/dL (9-16); Calcium 8.7 mg/dL (8.4-10.2); Carbon Dioxide 25 mmol/L (22-29); Chloride 101 mmol/L (96-108); Creatinine Clr Calc Pharmacy 10.2; Estimated Glomerular Filt Rate 7; Glucose Random 147 mg/dL (60-115); Potassium 4.8 mmol/L (3.3-5.1); Sodium 138 mmol/L (135-145)
--- NOTE | 2022-01-16 14:59 | PM.CNNEP ---
History of Present Illness Reason for Consult Consult date: 01/16/22 Chief Complaint Chief complaint: syncope History of Present Illness Narrative: 66 year old with end-stage renal disease was sent to ER from dialysis unit for Hypotension and Bradycardia in the dialysis Unit.? According to records he briefly lost consciousness during the event.? He denied any shortness of breath, chest pain , fever.?? He denies any previous history of syncope.? Lab work significant for leukocytosis 12.8 and otherwise unremarkable.? Chest x-ray showing moderate right pleural effusion, similar to prior examination.? EKG showing slow atrial fibrillation with heart rate 58, new T-wave inversions in leads 1 and aVL. No troponin was drawn but patient denies any chest pain. Urinalysis was consistent with UTI and he was given a dose of IV ceftriaxone.? He was admitted for further management. 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 HTN (hypertension) Prostate CA Suprapubic catheter Functional capacity: independent ambulation Family History Family History Father Renal failure Social History Social History Household Members: None Household Members Other:: tenant next door Housing: House Do you presently have visiting nurse or other home services: Yes (visiting nurses set up) Alcohol intake: former Patient Tobacco Use Status: Never used Tobacco Use of substances other than those prescribed or required for medical reasons: No Advance Directives: No Advance Directives Information Provided: No Advance Directives Date on File: 11/20/21 service: No Meds Allergies Allergy/AdvReac Type Severity Reaction Status Date / Time allopurinol Allergy Rash Verified 11/20/21 11:41 Active Medications: Current Medications Acetaminophen (Acetaminophen 325 Mg Tablet) 650 mg PO Q6H PRN PRN Reason: Pain, Mild (Pain Scale 1-3) Albuterol Sulfate (Albuterol Sulfate 90 Mcg 8 Gm Inhaler) 2 puff INHALE Q6H PRN PRN Reason: Wheezing Apixaban (Apixaban 2.5 Mg Tablet) 2.5 mg PO BID [facility] Last Admin: 01/16/22 09:46 Dose: 2.5 mg Documented by: Cyanocobalamin (Cyanocobalamin (Vitamin B-12) 1,000 Mcg Tablet) 1,000 mcg PO DAILY [facility] Last Admin: 01/16/22 08:48 Dose: 1,000 mcg Documented by: Dextrose (Dextrose 50 % 25 Gm/50 Ml Syringe) 25 gm IVPUSH Q15M PRN; Protocol PRN Reason: per Hypoglycemia Standing Ord. Docusate Sodium (Docusate Sodium 100 Mg Capsule) 100 mg PO DAILY PRN PRN Reason: Constipation Duloxetine HCl (Duloxetine Hcl 20 Mg Capsule.Dr) 20 mg PO DAILY [facility] Last Admin: 01/16/22 08:38 Dose: 20 mg Documented by: Ergocalciferol (Ergocalciferol (Vitamin D2) 1,250 Mcg Capsule) 1,250 mcg PO [facility] Gabapentin (Gabapentin 100 Mg Capsule) 100 mg PO BID [facility] Last Admin: 01/16/22 08:39 Dose: 100 mg Documented by: Glucose (Glucose Gel 15 Gm Gel..Gram.) 15 gm PO Q15M PRN; Protocol PRN Reason: per Hypoglycemia Standing Ord. Heparin Sodium (Porcine) (Heparin Sodium,Porcine 5,000 Unit/Ml Vial) 5,000 unit INTRACATH [id number] [facility] Meropenem 500 mg/ Sodium (Chloride) 50 mls @ 100 mls/hr IV Q24H [facility] Insulin Human Lispro (Insulin Lispro 100 Unit/Ml 3 Ml Vial) 0 unit SUBCUT QIDACHS [facility]; Protocol Last Admin: 01/16/22 12:38 Dose: Not Given Documented by: Multivitamins/Vitamin C (Multivitamin Tablet) 1 tab PO DAILY [facility] Last Admin: 01/16/22 08:39 Dose: 1 tab Documented by: Non-Formulary Medication (Febuxostat [Uloric]) 40 mg PO DAILY [facility] Pharmacy Consult (Consult Rx Perform Med Rec) 1 each MISCELLANE ONCE PRN PRN Reason: Consult order Sevelamer Carbonate (Sevelamer Carbonate Tablet 800 Mg Tablet) 1,600 mg PO TID [facility] Last Admin: 01/16/22 08:39 Dose: 1,600 mg Documented by: Sodium Chloride (0.9 % Sodium Chloride Flush 3 Ml Syringe) 3 ml IVFLUSH QSIAFT [facility] Last Admin: 01/16/22 07:23 Dose: Not Given Documented by: Home Medications Medication Instructions Recorded Confirmed Last Taken Type acetaminophen 325 mg tablet 650 mg PO Q6H PRN 11/20/21 01/15/22 11/19/21 History albuterol sulfate 90 mcg/actuation 2 puff INHALATION Q6H PRN 11/20/21 01/15/22 11/19/21 History aerosol inhaler (ProAir HFA) apixaban 2.5 mg tablet (Eliquis) 2.5 mg PO BID 11/20/21 01/15/22 11/19/21 History cholecalciferol (vitamin D3) 1,250 1 cap PO SA 11/20/21 01/15/22 11/19/21 History mcg (50,000 unit) capsule cyanocobalamin (vitamin B-12) 1,000 mcg PO DAILY 11/20/21 01/15/22 11/19/21 History 1,000 mcg tablet duloxetine 20 mg capsule,delayed 20 mg PO DAILY 11/20/21 01/15/22 11/19/21 History release (Cymbalta) febuxostat 40 mg tablet (Uloric) 40 mg PO DAILY 11/20/21 01/15/22 11/19/21 History insulin lispro 100 unit/mL 1 sliding scale dose SUBCUT 11/20/21 01/15/22 11/19/21 History subcutaneous pen USEASDIRECTD sevelamer carbonate 800 mg tablet 1,600 mg PO TID 11/20/21 01/15/22 11/19/21 History amlodipine 2.5 mg tablet 1 tab PO DAILY 01/15/22 01/15/22 Unknown History gabapentin 100 mg capsule 1 tab PO BID 01/15/22 01/15/22 Unknown History vitamin B complex-vitamin C-folic 1 tab PO DAILY 01/15/22 01/15/22 Unknown History acid 0.8 mg tablet (Isaura-Gabrielle) Physical Exam Vital Signs: Last Vital Signs Temp 98.3 F 01/16/22 06:46 Pulse 50 01/16/22 11:58 Resp 20 01/16/22 11:58 BP 122/50 L 01/16/22 11:58 Pulse Ox 93 01/16/22 11:58 Oxygen Flow Rate 2 01/15/22 14:17 BMI result Body Mass Index 28.7 Const General: comfortable Eyes EOM: EOMs intact bilaterally Chest Other: RIJ permcath in place Resp Auscultation: diminished lung sounds Cardio Rate: regular rate GI Palpation (GI): Soft to palpation Neuro General: moves all extremities Results Lab Results Result Diagrams: 01/16/22 13:01 01/16/22 13:01 Lab results: Chemistry 01/15/22 01/16/22 14:41 13:01 Sodium 139 138 Potassium 4.0 4.8 Carbon Dioxide 26 25 BUN 48 H 68 H Creatinine 5.36 H* 7.77 H* Calcium 8.9 8.7 Hematology 01/15/22 01/16/22 14:41 13:01 WBC 12.8 H 10.8 Hgb 10.1 L 9.2 L Plt Count 266 231 Urinalysis 01/15/22 16:36 Urine Color BROWN A Urine Appearance CLOUDY Urine pH 6.5 Ur Specific [place] 1.020 Urine Protein 3+ H Urine Glucose (UA) NEG Urine Ketones NEG Urine Blood 3+ H Urine Nitrite POS H Ur Leukocyte Esterase 3+ H Urine RBC TNTC H Urine WBC TNTC H Ur Squamous Epith Cells NONE Assessment and Plan (1) ESRD on dialysis: Status: Acute Plan Usually gets HD on TTS ( [facility]) Ordered HD for tomorrow. HD RN aware Renal Diet; Phos binders with meals Antibiotics dosed for GFR May need Right Pl effusion drained Likely will need pacemaker( Cards to decide) Shall continue to closely follow up Procedures Date of Service Date of Service: 01/16/22
[2022-01-16 15:00] VITALS: BP 118/48; PULSE 47; RESP 20; O2SAT 93
--- NOTE | 2022-01-16 15:20 | PC.NURSE ---
Pt rested while in Over[place]. Pt had a chance to get aclimatized to the hospital environment. Pt was noted to have a HR of high 30s to low 40s. w/o symptoms. Provider was notified who advised nurse to monitor
--- NOTE | 2022-01-16 15:34 | P.PNIM_ITS ---
Subjective Subjective Date of Service: 01/16/22 Interval History: seen and examined this morning reports feeling well, no palpitations, no dizziness or chest pain. no shortness of breath Review of Systems Review of Systems: Yes all other systems are reviewed and are negative Constitutional Constitutional: Denies chills, Reports fatigue and Denies fever(s) Cardiovascular Cardiovascular: Denies chest pain, Denies palpitations and Denies dyspnea Respiratory Respiratory: Denies dyspnea Gastrointestinal Gastrointestinal: Denies abdominal pain Endocrine Endocrine: Reports fatigue and Denies palpitations Physical Exam Vital Signs: Vital Signs: Last Vital Signs Temp 98.3 F 01/16/22 06:46 Pulse 47 L 01/16/22 15:00 Resp 20 01/16/22 15:00 BP 118/48 L 01/16/22 15:00 Pulse Ox 93 01/16/22 15:00 Oxygen Flow Rate 2 01/15/22 14:17 BMI result Body Mass Index 28.7 Const: General: cooperative, comfortable, no acute distress, alert and awake Nutritional Appearance: average body habitus Chest: Other: dialysis cath present right chest wall Resp: Other: diminished right base, otherwise clear to auscultation Effort & Inspection: normal respiratory effort and able to speak in complete sentences Cardio: Rate: bradycardic Rhythm: abnormal rhythm GI: Inspection: No distended Palpation (GI): Soft to palpation and nontender : Other: Suprapubic catheter present Extrem: Other: no leg edema Objective Data Active Medications Acetaminophen (Acetaminophen 325 Mg Tablet) 650 mg PO Q6H PRN PRN Reason: Pain, Mild (Pain Scale 1-3) Albuterol Sulfate (Albuterol Sulfate 90 Mcg 8 Gm Inhaler) 2 puff INHALE Q6H PRN PRN Reason: Wheezing Apixaban (Apixaban 2.5 Mg Tablet) 2.5 mg PO BID [facility] Last Admin: 01/16/22 09:46 Dose: 2.5 mg Documented by: AURE Cyanocobalamin (Cyanocobalamin (Vitamin B-12) 1,000 Mcg Tablet) 1,000 mcg PO DAILY [facility] Last Admin: 01/16/22 08:48 Dose: 1,000 mcg Documented by: AURE Dextrose (Dextrose 50 % 25 Gm/50 Ml Syringe) 25 gm IVPUSH Q15M PRN; Protocol PRN Reason: per Hypoglycemia Standing Ord. Docusate Sodium (Docusate Sodium 100 Mg Capsule) 100 mg PO DAILY PRN PRN Reason: Constipation Duloxetine HCl (Duloxetine Hcl 20 Mg Capsule.Dr) 20 mg PO DAILY [facility] Last Admin: 01/16/22 08:38 Dose: 20 mg Documented by: AURE Ergocalciferol (Ergocalciferol (Vitamin D2) 1,250 Mcg Capsule) 1,250 mcg PO SA [facility] Gabapentin (Gabapentin 100 Mg Capsule) 100 mg PO BID [facility] Last Admin: 01/16/22 08:39 Dose: 100 mg Documented by: AURE Glucose (Glucose Gel 15 Gm Gel..Gram.) 15 gm PO Q15M PRN; Protocol PRN Reason: per Hypoglycemia Standing Ord. Heparin Sodium (Porcine) (Heparin Sodium,Porcine 5,000 Unit/Ml Vial) 5,000 unit INTRACATH TUTHSA@1645 [facility] Meropenem 500 mg/ Sodium (Chloride) 50 mls @ 100 mls/hr IV Q24H [facility] Insulin Human Lispro (Insulin Lispro 100 Unit/Ml 3 Ml Vial) 0 unit SUBCUT QIDACHS [facility]; Protocol Last Admin: 01/16/22 12:38 Dose: Not Given Documented by: DYLON Non-Admin Reason: No Insulin Coverage Multivitamins/Vitamin C (Multivitamin Tablet) 1 tab PO DAILY [facility] Last Admin: 01/16/22 08:39 Dose: 1 tab Documented by: AURE Non-Formulary Medication (Febuxostat [Uloric]) 40 mg PO DAILY [facility] Pharmacy Consult (Consult Rx Perform Med Rec) 1 each MISCELLANE ONCE PRN PRN Reason: Consult order Sevelamer Carbonate (Sevelamer Carbonate Tablet 800 Mg Tablet) 1,600 mg PO TID [facility] Last Admin: 01/16/22 08:39 Dose: 1,600 mg Documented by: AURE Sodium Chloride (0.9 % Sodium Chloride Flush 3 Ml Syringe) 3 ml IVFLUSH QSHIFT [facility] Last Admin: 01/16/22 07:23 Dose: Not Given Documented by: ARLETH Non-Admin Reason: Med Not Available Labs CBC & Chem 7: 01/16/22 13:01 01/16/22 13:01 Labs: Laboratory Results - last 24 hr 01/15/22 01/15/22 01/15/22 16:36 18:24 18:58 MCV MCH MCHC RDW Plt Count MPV Absolute Nucleated RBC Nucleated RBC % (auto) Anion Gap Estim Creat Clear Calc Estimated GFR POC Glucose 119 H Random Glucose Estimat Average Glucose 126 Hemoglobin A1c % 6.0 Calcium Urine Color BROWN A Urine Appearance CLOUDY Urine pH 6.5 Ur Specific [place] 1.020 Urine Protein 3+ H Urine Glucose (UA) NEG Urine Ketones NEG Urine Blood 3+ H Urine Nitrite POS H Ur Leukocyte Esterase 3+ H Urine RBC TNTC H Urine WBC TNTC H Ur Squamous Epith Cells NONE Urine Bacteria 2+ 01/15/22 01/16/22 01/16/22 21:19 07:29 12:06 MCV MCH MCHC RDW Plt Count MPV Absolute Nucleated RBC Nucleated RBC % (auto) Anion Gap Estim Creat Clear Calc Estimated GFR POC Glucose 164 H 131 H 137 H Random Glucose Estimat Average Glucose Hemoglobin A1c % Calcium Urine Color Urine Appearance Urine pH Ur Specific [place] Urine Protein Urine Glucose (UA) Urine Ketones Urine Blood Urine Nitrite Ur Leukocyte Esterase Urine RBC Urine WBC Ur Squamous Epith Cells Urine Bacteria 01/16/22 01/16/22 13:01 13:01 MCV 105.0 H MCH 32.6 MCHC 31.1 RDW 17.3 H Plt Count 231 MPV 8.9 L Absolute Nucleated RBC 0.000 Nucleated RBC % (auto) 0.0 Anion Gap 17 Estim Creat Clear Calc 10.2 Estimated GFR 7 POC Glucose Random Glucose 147 H Estimat Average Glucose Hemoglobin A1c % Calcium 8.7 Urine Color Urine Appearance Urine pH Ur Specific [place] Urine Protein Urine Glucose (UA) Urine Ketones Urine Blood Urine Nitrite Ur Leukocyte Esterase Urine RBC Urine WBC Ur Squamous Epith Cells Urine Bacteria Microbiology Microbiology Results: Microbiology 01/15/22 16:47 Urine Culture - Preliminary Urine clean catch - Urine francis top Culture too young to evaluate. Assessment and Plan (1) Atrial fibrillation with slow ventricular response: Status: Acute (2) Junctional bradycardia: Status: Acute (3) ESRD on dialysis: Status: Acute Plan This is a 66-year-old male with history of ESRD on HD ([facility]), atrial fibrillation Eliquis, CHF, CAD chronic suprapubic catheter sent to the emergency department from dialysis due to hypotension and bradycardia with question syncope Possible Syncope Reportedly bradycardic and hypotensive at dialysis Heart rate as low as 30s No evidence of hypotension since admission orthostatic blood pressures from 01/15 positive echo with preserved EF, grade II diastolic dysfunction cardiology following, tele monitoring another 24 hours to determine need for pacemaker chronic atrial fibrillation with slow ventricular response Heart rate as low as 30s. Patient reports chronic bradycardia with heart rate in the 30s at times Not on any rate lowering medication -continue anticoagulation with Eliquis, renally dosed -tele monitoring -cardiology following, see above Hypertension Given hypotensive episode at dialysis, will hold Norvasc (dose of norvasc recently decreased to 2.5) Monitor blood pressure closely elevated troponin trops flat ekg with some new t wave inversions no chest pain echo as above cardiology following UTI Related to chronic suprapubic catheter No evidence of sepsis History of MDR Pseudomonas aeruginosa -continue meropenem for now -Urine and blood cultures pending -ID consult pending Radiation cystitis/Uretheral stricture/ Urinary retention s/p suprapubic catheter (changed on 01/13) followed by Dr. Curiel recently started on gabapentin for ?component of neuropathic pain ESRD on HD ,, partial HD today -nephrology consult Right pleural effusion doesn't seem to be symptomatic at this time monitor respiratory status closely consider drainage if develops respiratory symptoms Diabetes Not on baseline meds -check HbA1c -SSI, POCs Code status- full code [phone], very involved and knowledgeable about medical history. called and updated Attending - Dr. Vazquez Quality Stroke Does the patient have a stroke diagnosis?: No VTE Prior VTE?: No VTE Risk Level:: Medical - moderate - high VTE Device Contraindication: N/A - Device Ordered VTE Drug Contraindication: N/A - Med Ordered
--- NOTE | 2022-01-16 15:42 | P.CNID_ITS ---
History of Present Illness Data of Consult Service Date: 01/16/22 Requesting physician: Rafael Browne Primary Care Provider: Biju Redd MD HPI Reason for consult: hypotension He presents with hypotension and bradycardia. He doesnt make much urine and has catheter in place. 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 HTN (hypertension) Prostate CA Suprapubic catheter Symptomatic bradycardia Syncope Functional capacity: independent ambulation Family History Family History Father Renal failure Family history: reviewed and not pertinent Surgical History Surgical History (Updated 01/31/22 @ 00:02 by Background Dajaylen) Status post placement of cardiac pacemaker Social History Social History Household Members: None Household Members Other:: tenant next door Housing: House Do you presently have visiting nurse or other home services: Yes (visiting nurses set up) Alcohol intake: former Patient Tobacco Use Status: Never used Tobacco Advance Directives Date on File: 11/20/21 service: No Current occupational status: disabled Meds Allergies Allergy/AdvReac Type Severity Reaction Status Date / Time allopurinol Allergy Rash Verified 11/20/21 11:41 Active Medications: Current Medications Acetaminophen (Acetaminophen 325 Mg Tablet) 650 mg PO Q6H PRN PRN Reason: Pain, Mild (Pain Scale 1-3) Albuterol Sulfate (Albuterol Sulfate 90 Mcg 8 Gm Inhaler) 2 puff INHALE Q6H PRN PRN Reason: Wheezing Apixaban (Apixaban 2.5 Mg Tablet) 2.5 mg PO BID [facility] Last Admin: 01/16/22 09:46 Dose: 2.5 mg Documented by: Cyanocobalamin (Cyanocobalamin (Vitamin B-12) 1,000 Mcg Tablet) 1,000 mcg PO DAILY [facility] Last Admin: 01/16/22 08:48 Dose: 1,000 mcg Documented by: Dextrose (Dextrose 50 % 25 Gm/50 Ml Syringe) 25 gm IVPUSH Q15M PRN; Protocol PRN Reason: per Hypoglycemia Standing Ord. Docusate Sodium (Docusate Sodium 100 Mg Capsule) 100 mg PO DAILY PRN PRN Reason: Constipation Duloxetine HCl (Duloxetine Hcl 20 Mg Capsule.Dr) 20 mg PO DAILY [facility] Last Admin: 01/16/22 08:38 Dose: 20 mg Documented by: Ergocalciferol (Ergocalciferol (Vitamin D2) 1,250 Mcg Capsule) 1,250 mcg PO SA [facility] Gabapentin (Gabapentin 100 Mg Capsule) 100 mg PO BID [facility] Last Admin: 01/16/22 08:39 Dose: 100 mg Documented by: Glucose (Glucose Gel 15 Gm Gel..Gram.) 15 gm PO Q15M PRN; Protocol PRN Reason: per Hypoglycemia Standing Ord. Heparin Sodium (Porcine) (Heparin Sodium,Porcine 5,000 Unit/Ml Vial) 5,000 unit INTRACATH TUTHSA@1645 [facility] Meropenem 500 mg/ Sodium (Chloride) 50 mls @ 100 mls/hr IV Q24H [facility] Insulin Human Lispro (Insulin Lispro 100 Unit/Ml 3 Ml Vial) 0 unit SUBCUT QIDA [facility]; Protocol Last Admin: 01/16/22 12:38 Dose: Not Given Documented by: Multivitamins/Vitamin C (Multivitamin Tablet) 1 tab PO DAILY [facility] Last Admin: 01/16/22 08:39 Dose: 1 tab Documented by: Non-Formulary Medication (Febuxostat [Uloric]) 40 mg PO DAILY [facility] Pharmacy Consult (Consult Rx Perform Med Rec) 1 each MISCELLANE ONCE PRN PRN Reason: Consult order Sevelamer Carbonate (Sevelamer Carbonate Tablet 800 Mg Tablet) 1,600 mg PO TID [facility] Last Admin: 01/16/22 08:39 Dose: 1,600 mg Documented by: Sodium Chloride (0.9 % Sodium Chloride Flush 3 Ml Syringe) 3 ml IVFLUSH QSHIFT [facility] Last Admin: 01/16/22 07:23 Dose: Not Given Documented by: Home Medications Medication Instructions Recorded Confirmed Last Taken Type acetaminophen 325 mg tablet 650 mg PO Q6H PRN 11/20/21 01/15/22 11/19/21 History albuterol sulfate 90 mcg/actuation 2 puff INHALATION Q6H PRN 11/20/21 01/15/22 11/19/21 History aerosol inhaler (ProAir HFA) apixaban 2.5 mg tablet (Eliquis) 2.5 mg PO BID 11/20/21 01/15/22 11/19/21 History cholecalciferol (vitamin D3) 1,250 1 cap PO SA 11/20/21 01/15/22 11/19/21 History mcg (50,000 unit) capsule cyanocobalamin (vitamin B-12) 1,000 mcg PO DAILY 11/20/21 01/15/22 11/19/21 History 1,000 mcg tablet duloxetine 20 mg capsule,delayed 20 mg PO DAILY 11/20/21 01/15/22 11/19/21 History release (Cymbalta) febuxostat 40 mg tablet (Uloric) 40 mg PO DAILY 11/20/21 01/15/22 11/19/21 History insulin lispro 100 unit/mL 1 sliding scale dose SUBCUT 11/20/21 01/15/22 11/19/21 History subcutaneous pen USEASDIRECTD sevelamer carbonate 800 mg tablet 1,600 mg PO TID 11/20/21 01/15/22 11/19/21 History gabapentin 100 mg capsule 1 tab PO BID 01/15/22 01/15/22 Unknown History vitamin B complex-vitamin C-folic 1 tab PO DAILY 01/15/22 01/15/22 Unknown History acid 0.8 mg tablet (Isaura-Gabrielle) Physical Exam Vital Signs: Vital Signs: Last Vital Signs Temp 98.3 F 01/16/22 06:46 Pulse 47 L 01/16/22 15:00 Resp 20 01/16/22 15:00 BP 118/48 L 01/16/22 15:00 Pulse Ox 93 01/16/22 15:00 Oxygen Flow Rate 2 01/15/22 14:17 BMI result Body Mass Index 28.7 Const: General: cooperative HENMT: Head: Yes normal to inspection Mouth: Normal oral and palatal mucosa present Resp: Effort & Inspection: normal respiratory effort Cardio: Rate: regular rate Rhythm: regular rhythm GI: Palpation (GI): Soft to palpation and nontender Skin: General skin exam: no rashes or lesions noted Extrem: General: Yes normal to inspection Results Labs CBC & Chem 7: 01/19/22 05:35 01/23/22 06:20 Labs: Short CBC 01/16/22 Range/Units 13:01 WBC 10.8 (4.8-10.8) X10*3/uL Hgb 9.2 L (14.0-18.0) g/dl Hct 29.6 L (42.0-52.0) % Plt Count 231 (160-400) X10*3/uL BMP 01/16/22 13:01 Sodium 138 Potassium 4.8 Chloride 101 Carbon Dioxide 25 BUN 68 H Creatinine 7.77 H* Calcium 8.7 Urine 01/15/22 Range/Units 16:36 Urine Color BROWN A Urine Appearance CLOUDY Urine pH 6.5 (5.0-8.0) Ur Specific [place] 1.020 (1.005-1.025) Urine Protein 3+ H (NEG-TRACE) MG/DL Urine Glucose (UA) NEG (NEG) MG/DL Microbiology Microbiology Results: Microbiology 01/15/22 16:47 Urine clean catch - Urine francis top Urine Culture - Preliminary Culture too young to evaluate. Assessment and Plan (1) Syncope: (2) Acute UTI: Status: Resolved He has possible resistant organism as has had prior MDR Pseudomonas He has chronic catheter He has monthly Montoya changes Plan Would continue Mere for now. Await culture and deescalate as needed
[2022-01-16 16:30] LABS: Glucose, Whole Blood 128 mg/dL (60-115)
--- NOTE | 2022-01-16 20:16 | PC.NURSE ---
PT TO NOTED TO HAVE VERY SMALL RED ALMOST OPEN AREA TO TOP OF COCCYX REGION. BARRIER CREAM TO, PT CLEANED, SAMY CARE PROVIDED
[2022-01-16] MEDS: Insulin Lispro 100 UNIT/ML 3 ML VIAL SUBCUT (21:31)
[2022-01-16] MEDS: 0.9 % Sodium Chloride Flush 3 ML SYRINGE IVFLUSH (23:23)
[2022-01-17 00:56] VITALS: BP 91/49; PULSE 52; RESP 15; TEMP 38.1; O2SAT 95
[2022-01-17] MEDS: Acetaminophen 325 MG TABLET 650 MG PO (01:01)
[2022-01-17 01:05] VITALS: BP 126/66
[2022-01-17 04:01] VITALS: BP 104/36; PULSE 48; RESP 22; TEMP 36.7; O2SAT 95
--- NOTE | 2022-01-17 07:30 | PC.NURSE ---
Pt to Dialysis at this time.
[2022-01-17 08:25] LABS: Hematocrit 26.8 % (42.0-52.0); Hemoglobin 8.4 g/dl (14.0-18.0); Mean Corpuscular HGB Conc 31.3 g/dl (31.0-36.0); Mean Corpuscular Hemoglobin 32.9 pg (27.0-33.0); Mean Corpuscular Volume 105.1 fL (80.0-98.0); Mean Platelet Volume 9.4 fL (9.4-12.4); Platelet Count 226 X10*3/uL (160-400); Red Blood Count 2.55 X10*6/uL (4.60-5.80); Red Cell Distribution Width 17.3 % (11.0-16.0); White Blood Count 10.7 X10*3/uL (4.8-10.8)
[2022-01-17 08:56] LABS: Anion Gap 16 (12-20); Blood Urea Nitrogen 66 mg/dL (9-16); Calcium 8.7 mg/dL (8.4-10.2); Carbon Dioxide 25 mmol/L (22-29); Chloride 100 mmol/L (96-108); Creatinine Clr Calc Pharmacy 11.2; Estimated Glomerular Filt Rate 8; Glucose Random 121 mg/dL (60-115); Magnesium 2.1 mg/dL (1.6-2.6); Potassium 4.5 mmol/L (3.3-5.1); Sodium 136 mmol/L (135-145)
--- NOTE | 2022-01-17 11:30 | P.PNCA_ITS ---
Subjective Subjective Date of Service: 01/17/22 Interval history: Feels ok. No new complaints. Denies any dizziness/syncope. Review of Systems Review of Systems Yes all other systems are reviewed and are negative Cardiovascular: Reports as per HPI, Reports no additional cardiovascular complaints, Denies acrocyanosis, Denies cool extremities, Denies chest pain, Denies diaphoresis, Denies syncope, Denies claudication, Denies leg edema, Denies lightheadedness, Denies palpitations and Denies dyspnea Respiratory: Denies dyspnea Denies syncope Endocrine: Denies palpitations Physical Exam Vital Signs: Last Vital Signs Temp 98.1 F 01/17/22 04:01 Pulse 48 L 01/17/22 04:01 Resp 22 H 01/17/22 04:01 BP 104/36 L 01/17/22 04:01 Pulse Ox 95 01/17/22 04:01 Oxygen Flow Rate 2 01/15/22 14:17 BMI result Body Mass Index 28.7 Const General: comfortable HENMT Other: Unremarkable Neck Neck: Yes normal visual inspection Chest Chest palpation & inspection: normal inspection of the chest Resp Auscultation: clear to auscultation bilaterally Cardio Palpation: normal PMI Heart sounds: S1 normal heart sound present, S2 normal heart sound present, no gallops, no murmurs and no rubs GI Palpation (GI): Soft to palpation Back/Spine/Pelvis Other: unremarkable Skin Lesions: other Neuro General: other Extrem General: Yes other Psych Mental Status: other Objective Labs and Meds Result diagrams: 01/17/22 07:55 01/17/22 07:55 Lab results: Laboratory Results - last 24 hr 01/16/22 01/16/22 01/16/22 12:06 13:01 13:01 WBC 10.8 RBC 2.82 L Hgb 9.2 L Hct 29.6 L MCV 105.0 H MCH 32.6 MCHC 31.1 RDW 17.3 H Plt Count 231 MPV 8.9 L Absolute Nucleated RBC 0.000 Nucleated RBC % (auto) 0.0 Sodium 138 Potassium 4.8 Chloride 101 Carbon Dioxide 25 Anion Gap 17 BUN 68 H Creatinine 7.77 H* Estim Creat Clear Calc 10.2 Estimated GFR 7 POC Glucose 137 H Random Glucose 147 H Calcium 8.7 Magnesium 01/16/22 01/17/22 01/17/22 16:25 07:55 07:55 WBC 10.7 RBC 2.55 L Hgb 8.4 L Hct 26.8 L MCV 105.1 H MCH 32.9 MCHC 31.3 RDW 17.3 H Plt Count 226 MPV 9.4 Absolute Nucleated RBC 0.000 Nucleated RBC % (auto) 0.0 Sodium 136 Potassium 4.5 Chloride 100 Carbon Dioxide 25 Anion Gap 16 BUN 66 H Creatinine 7.07 H* Estim Creat Clear Calc 11.2 Estimated GFR 8 POC Glucose 128 H Random Glucose 121 H Calcium 8.7 Magnesium 2.1 Progress Note: A&P Assessment and plan (1) Atrial fibrillation with slow ventricular response: Status: Acute (2) Junctional bradycardia: Status: Acute (3) Syncope: Status: Acute (4) ESRD on dialysis: Status: Acute Plan In the previous EKG from November, he had junctional bradycardia in the 30s. In the current EKG, he is in atrial fibrillation with relatively slow rate but not profound. On telemetry, he seems to have junctional rhythm going as low as 30s. Overall, it is possible that conduction system disease is leading to syncopal type symptoms during dialysis but not definitive. When we called the dialysis unit today, the rather state that he was leaking blood from the connection site and hence not clear if he actually had a vasovagal type episode rather. Overall, he is somewhat of a candidate for pacemaker but not ideal as he also has dialysis access which will potentially to future infections and also has suprapubic catheter. He is not a candidate for leadless pacer either as he needs atrial pacing. Will discuss with Dr. Lawrence. Labs reviewed-high sensitivity troponins-37 and 55. Cardiac BNP 823. Chest [id number] right pleural effusion; bibasilar disease; cardiomegaly. Echo- LVEF 54%. Moderately increased right ventricular size. Mild MR, TR, mild pulmonary hypertension. Fall Risk Details Current Medications: Current Medications Acetaminophen (Acetaminophen 325 Mg Tablet) 650 mg PO Q6H PRN PRN Reason: Pain, Mild (Pain Scale 1-3) Last Admin: 01/17/22 01:01 Dose: 650 mg Documented by: Albuterol Sulfate (Albuterol Sulfate 90 Mcg 8 Gm Inhaler) 2 puff INHALE Q6H PRN PRN Reason: Wheezing Apixaban (Apixaban 2.5 Mg Tablet) 2.5 mg PO BID [facility] Last Admin: 01/16/22 21:31 Dose: 2.5 mg Documented by: Cyanocobalamin (Cyanocobalamin (Vitamin B-12) 1,000 Mcg Tablet) 1,000 mcg PO DAILY [facility] Last Admin: 01/16/22 08:48 Dose: 1,000 mcg Documented by: Dextrose (Dextrose 50 % 25 Gm/50 Ml Syringe) 25 gm IVPUSH Q15M PRN; Protocol PRN Reason: per Hypoglycemia Standing Ord. Docusate Sodium (Docusate Sodium 100 Mg Capsule) 100 mg PO DAILY PRN PRN Reason: Constipation Duloxetine HCl (Duloxetine Hcl 20 Mg Capsule.Dr) 20 mg PO DAILY [facility] Last Admin: 01/16/22 08:38 Dose: 20 mg Documented by: Ergocalciferol (Ergocalciferol (Vitamin D2) 1,250 Mcg Capsule) 1,250 mcg PO SA [facility] Gabapentin (Gabapentin 100 Mg Capsule) 100 mg PO BID [facility] Last Admin: 01/16/22 21:31 Dose: 100 mg Documented by: Glucose (Glucose Gel 15 Gm Gel..Gram.) 15 gm PO Q15M PRN; Protocol PRN Reason: per Hypoglycemia Standing Ord. Heparin Sodium (Porcine) (Heparin Sodium,Porcine 5,000 Unit/Ml Vial) 5,000 unit INTRACATH TUTHSA@1645 [facility] Insulin Human Lispro (Insulin Lispro 100 Unit/Ml 3 Ml Vial) 0 unit SUBCUT QIDACHS [facility]; Protocol Last Admin: 01/17/22 09:09 Dose: Not Given Documented by: Multivitamins/Vitamin C (Multivitamin Tablet) 1 tab PO DAILY [facility] Last Admin: 01/16/22 08:39 Dose: 1 tab Documented by: Non-Formulary Medication (Febuxostat [Uloric]) 40 mg PO DAILY [facility] Pharmacy Consult (Consult Rx Perform Med Rec) 1 each MISCELLANE ONCE PRN PRN Reason: Consult order Sevelamer Carbonate (Sevelamer Carbonate Tablet 800 Mg Tablet) 1,600 mg PO TID [facility] Last Admin: 01/16/22 21:31 Dose: 1,600 mg Documented by: Sodium Chloride (0.9 % Sodium Chloride Flush 3 Ml Syringe) 3 ml IVFLUSH QSHIFT [facility] Last Admin: 01/17/22 09:09 Dose: Not Given Documented by: Time Spent With Patient Time: Total time spent is greater than 50% in coordination of care (as documented) at patient's floor/unit and/or counseling patient: Time with patient: less than 15 minutes Progress Note: Quality Stroke Does the patient have a stroke diagnosis?: No Procedures Date of Service Date of Service: 01/17/22
[2022-01-17] MEDS: DULoxetine HCl 20 MG CAPSULE.DR PO (11:44)
[2022-01-17] MEDS: Gabapentin 100 MG CAPSULE PO ×2 (11:44→20:47)
[2022-01-17] MEDS: Multivitamin TABLET 1 TAB PO (11:44)
[2022-01-17] MEDS: Sevelamer Carbonate Tablet 800 MG TABLET 1600 MG PO ×3 (11:44→20:47)
[2022-01-17] MEDS: Cyanocobalamin (Vitamin B-12) 1,000 MCG TABLET 1000 MCG PO (11:45)
[2022-01-17] MEDS: Apixaban 2.5 MG TABLET PO (11:45)
--- NOTE | 2022-01-17 11:51 | P.PNIM_ITS ---
Subjective Subjective Date of Service: 01/17/22 <JARVIS Humphries - Last Filed: 01/17/22 11:57> 01/17/22 <Luis Chisholm DO - Last Filed: 01/17/22 18:37> Interval History: seen and examined this morning while in dialysis feeling well, no complaints at this time no chest pain, SOB, dizziness or palpitations <JARVIS Humphries - Last Filed: 01/17/22 11:57> Review of Systems Review of Systems: Yes all other systems are reviewed and are negative <JARVIS Humphries - Last Filed: 01/17/22 11:57> Constitutional Constitutional: Denies chills and Denies fever(s) <JARVIS Humphries - Last Filed: 01/17/22 11:57> Cardiovascular Cardiovascular: Denies chest pain and Denies dyspnea <JARVIS Humphries - Last Filed: 01/17/22 11:57> Respiratory Respiratory: Denies dyspnea <JARVIS Humphries - Last Filed: 01/17/22 11:57> Physical Exam Vital Signs: Vital Signs: Last Vital Signs Temp 98.1 F 01/17/22 04:01 Pulse 48 L 01/17/22 04:01 Resp 22 H 01/17/22 04:01 BP 104/36 L 01/17/22 04:01 Pulse Ox 95 01/17/22 04:01 Oxygen Flow Rate 2 01/15/22 14:17 BMI result Body Mass Index 28.7 <JARVIS Humphries - Last Filed: 01/17/22 11:57> Const: General: cooperative, comfortable, no acute distress, alert and awake <JARVIS Humphries - Last Filed: 01/17/22 11:57> Nutritional Appearance: average body habitus <JARVIS Humphries - Last Filed: 01/17/22 11:57> Chest: Other: dialysis cath present right chest wall <JARVIS Humphries - Last Filed: 01/17/22 11:57> Resp: Other: diminished right base, otherwise clear to auscultation <JARVIS Humphries - Last Filed: 01/17/22 11:57> Effort & Inspection: normal respiratory effort and able to speak in complete sentences <JARVIS Humphries - Last Filed: 01/17/22 11:57> Cardio: Rate: bradycardic <JARVIS Humphries Last Filed: 01/17/22 11:57> Rhythm: abnormal rhythm <JARVIS Humphries - Last Filed: 01/17/22 11:57> GI: Inspection: No distended <JARVIS Humphries - Last Filed: 0 01/17/22 11:57> Palpation (GI): Soft to palpation and nontender <JARVIS Humphries - Last Filed: 01/17/22 11:57> : Other: Suprapubic catheter present <JARVIS Humphries Last Filed: 01/17/22 11:57> Extrem: Other: no leg edema <JARVIS Humphries Last Filed: 01/17/22 11:57> Objective Data Active Medications Acetaminophen (Acetaminophen 325 Mg Tablet) 650 mg PO Q6H PRN PRN Reason: Pain, Mild (Pain Scale 1-3) Last Admin: 01/17/22 01:01 Dose: 650 mg Documented by: RICHARD Albuterol Sulfate (Albuterol Sulfate 90 Mcg 8 Gm Inhaler) 2 puff INHALE Q6H PRN PRN Reason: Wheezing Apixaban (Apixaban 2.5 Mg Tablet) 2.5 mg PO BID [facility] Last Admin: 01/17/22 11:45 Dose: 2.5 mg Documented by: JALEN Cyanocobalamin (Cyanocobalamin (Vitamin B-12) 1,000 Mcg Tablet) 1,000 mcg PO DAILY [facility] Last Admin: 01/17/22 11:45 Dose: 1,000 mcg Documented by: JALEN Dextrose (Dextrose 50 % 25 Gm/50 Ml Syringe) 25 gm IVPUSH Q15M PRN; Protocol PRN Reason: per Hypoglycemia Standing Ord. Docusate Sodium (Docusate Sodium 100 Mg Capsule) 100 mg PO DAILY PRN PRN Reason: Constipation Duloxetine HCl (Duloxetine Hcl 20 Mg Capsule.Dr) 20 mg PO DAILY [facility] Last Admin: 01/17/22 11:44 Dose: 20 mg Documented by: JALEN Ergocalciferol (Ergocalciferol (Vitamin D2) 1,250 Mcg Capsule) 1,250 mcg PO [facility] Gabapentin (Gabapentin 100 Mg Capsule) 100 mg PO BID [facility] Last Admin: 01/17/22 11:44 Dose: 100 mg Documented by: JALEN Glucose (Glucose Gel 15 Gm Gel..Gram.) 15 gm PO Q15M PRN; Protocol PRN Reason: per Hypoglycemia Standing Ord. Heparin Sodium (Porcine) (Heparin Sodium,Porcine 5,000 Unit/Ml Vial) 5,000 unit INTRACATH [id number] [facility] Insulin Human Lispro (Insulin Lispro 100 Unit/Ml 3 Ml Vial) 0 unit SUBCUT QIDACHS [facility]; Protocol Last Admin: 01/17/22 09:09 Dose: Not Given Documented by: JALEN Non-Admin Reason: Off unit: Dialysis Multivitamins/Vitamin C (Multivitamin Tablet) 1 tab PO DAILY [facility] Last Admin: 01/17/22 11:44 Dose: 1 tab Documented by: JALEN Non-Formulary Medication (Febuxostat [Uloric]) 40 mg PO DAILY [facility] Pharmacy Consult (Consult Rx Perform Med Rec) 1 each MISCELLANE ONCE PRN PRN Reason: Consult order Sevelamer Carbonate (Sevelamer Carbonate Tablet 800 Mg Tablet) 1,600 mg PO TID [facility] Last Admin: 01/17/22 11:44 Dose: 1,600 mg Documented by: JALEN Sodium Chloride (0.9 % Sodium Chloride Flush 3 Ml Syringe) [facility] Last Admin: 01/17/22 09:09 Dose: Not Given Documented by: JALEN Non-Admin Reason: Off unit: Dialysis <JARVIS Humphries - Last Filed: 01/17/22 11:57> Labs CBC & Chem 7: : 01/17/22 07:55 01/17/22 07:55 <JARVIS Humphries - Last Filed: 01/17/22 11:57> Labs: Laboratory Results - last 24 hr 01/16/22 01/16/22 01/16/22 12:06 13:01 13:01 MCV 105.0 H MCH 32.6 MCHC 31.1 RDW 17.3 H Plt Count 231 MPV 8.9 L Absolute Nucleated RBC 0.000 Nucleated RBC % (auto) 0.0 Anion Gap 17 Estim Creat Clear Calc 10.2 Estimated GFR 7 POC Glucose 137 H Random Glucose 147 H Calcium 8.7 Magnesium 01/16/22 01/17/22 01/17/22 16:25 07:55 07:55 MCV 105.1 H MCH 32.9 MCHC 31.3 RDW 17.3 H Plt Count 226 MPV 9.4 Absolute Nucleated RBC 0.000 Nucleated RBC % (auto) 0.0 Anion Gap 16 Estim Creat Clear Calc 11.2 Estimated GFR 8 POC Glucose 128 H Random Glucose 121 H Calcium 8.7 Magnesium 2.1 <JARVIS Humphries - Last Filed: 01/17/22 11:57> Microbiology Microbiology Results: Microbiology 01/15/22 16:47 Urine Culture - Final Urine clean catch - Urine francis top 01/15/22 14:48 Blood Culture - Preliminary Blood - Venous No growth after 24 hours. 01/15/22 14:41 Blood Culture - Preliminary Blood - Venous No growth after 24 hours. <JARVIS Humphries - Last Filed: 01/17/22 11:57> Assessment and Plan (1) Junctional bradycardia: Status: Acute <JARVIS Humphries - Last Filed: 01/17/22 11:57> (2) Atrial fibrillation with slow ventricular response: Status: Acute <JARVIS Humphries - Last Filed: 01/17/22 11:57> (3) ESRD on dialysis: Status: Acute <JARVIS Humphries - Last Filed: 01/17/22 11:57> Plan This is a 66-year-old male with [facility] of [facility] atrial fibrillation Eliquis, CHF, CAD chronic suprapubic catheter sent to the emergency department from dialysis due to hypotension and bradycardia with question syncope Possible Syncope Reportedly bradycardic and hypotensive at dialysis Heart rate as low as 30s No evidence of hypotension since admission orthostatic blood pressures from 01/15 positive echo with preserved EF, grade II diastolic dysfunction, mild MR, TR, mild pulmonary hypertension cardiology following, tele monitoring another 24 hours to determine need for pacemaker chronic atrial fibrillation with slow ventricular response Heart rate as low as 30s. Patient reports chronic bradycardia with heart rate in the 30s at times Not on any rate lowering medication -continue anticoagulation with Eliquis, renally dosed -tele monitoring -cardiology following, see above Hypertension Given hypotensive episode at dialysis, will hold Norvasc (dose of norvasc recently decreased to 2.5) BP has been on lower side without BP meds Monitor blood pressure closely elevated troponin trops flat ekg with some new t wave inversions no chest pain echo as above cardiology following UTI Related to chronic suprapubic catheter No evidence of sepsis Initially treated with Meropenem due to history of MDR Pseudomonas aeruginosa UCx with mixed flow, abx d/c BCx negative to date Radiation cystitis/Uretheral stricture/ Urinary retention s/p suprapubic catheter (changed on 01/13) followed by Dr. Curiel recently started on gabapentin for ?component of neuropathic pain ESRD on HD ,, HD 01/17 -nephrology following Right pleural effusion doesn't seem to be symptomatic at this time. not requiring supplemental oxygen monitor respiratory status closely consider drainage if develops respiratory symptoms Diabetes Not on baseline meds -check HbA1c -SSI, POCs Code status- full code HCP - Fili Chairez [phone], very involved and knowledgeable about medical history. called and updated Attending - Dr. Chisholm <JARVIS Humphries - Last Filed: 01/17/22 11:57> This is a 66-year-old male with history of ESRD on HD ([facility]), atrial fibrillation Eliquis, CHF, CAD chronic suprapubic catheter sent to the emergency department from dialysis due to hypotension and bradycardia with question syncope Possible Syncope Reportedly bradycardic and hypotensive at dialysis Heart rate as low as 30s No evidence of hypotension since admission orthostatic blood pressures from 01/15 positive echo with preserved EF, grade II diastolic dysfunction, mild MR, TR, mild pulmonary hypertension cardiology following, tele monitoring another 24 hours to determine need for pacemaker chronic atrial fibrillation with slow ventricular response Heart rate as low as 30s. Patient reports chronic bradycardia with heart rate in the 30s at times Not on any rate lowering medication -continue anticoagulation with Eliquis, renally dosed -tele monitoring -cardiology following, see above Hypertension Given hypotensive episode at dialysis, will hold Norvasc (dose of norvasc recently decreased to 2.5) BP has been on lower side without BP meds Monitor blood pressure closely elevated troponin trops flat ekg with some new t wave inversions no chest pain echo as above cardiology following UTI Related to chronic suprapubic catheter No evidence of sepsis Initially treated with Meropenem due to history of MDR Pseudomonas aeruginosa UCx with mixed flow, abx d/c BCx negative to date Radiation cystitis/Uretheral stricture/ Urinary retention s/p suprapubic catheter (changed on 01/13) followed by Dr. Curiel recently started on gabapentin for ?component of neuropathic pain ESRD on HD ,, Sa HD 01/17 -nephrology following Right pleural effusion doesn't seem to be symptomatic at this time. not requiring supplemental oxygen monitor respiratory status closely consider drainage if develops respiratory symptoms Diabetes Not on baseline meds -check HbA1c -SSI, POCs Code status- full code HCP - Fili Chairez [phone], very involved and knowledgeable about medical history. called and updated Attending - Dr. Chisholm Chart reviewed. Pt examined. Agree with H+P/assesment and plan as outlined by Ms Chrissy CONLEY <Luis Chisholm, DO - Last Filed: 01/17/22 18:37> Quality Stroke Does the patient have a stroke diagnosis?: No <JARVIS Humphries - Last Filed: 01/17/22 11:57> VTE Prior VTE?: No <JARVIS Humphries - Last Filed: 01/17/22 11:57> VTE Risk Level:: Medical - moderate - high <JARVIS Humphries - Last Filed: 01/17/22 11:57> VTE Device Contraindication: N/A - Device Ordered <JARVIS Humphries - Last Filed: 01/17/22 11:57> VTE Drug Contraindication: N/A - Med Ordered <JARVIS Humphries - Last Filed: 01/17/22 11:57>
[2022-01-17 11:59] VITALS: BP 111/52; PULSE 52; RESP 14; O2SAT 95
--- NOTE | 2022-01-17 12:08 | PC.NURSE ---
Pt returned from dialysis. A&Ox3, no complaints of pain at this time. HR in the 50's at this time. BLE darkening from mid calf down, + pulses. Pericare provided, linens changed, superpubic cath in place, cloudy dark urine at this time. Call ya within reach, will continue to monitor.
--- NOTE | 2022-01-17 13:58 | PM.PNNEP ---
Subjective Subjective Date of Service: 01/17/22 Interval history: On Dialysis this AM- no issues; Seen by Cards Physical Exam Vital Signs: Vital Signs: Last Vital Signs Temp 98.1 F 01/17/22 04:01 Pulse 52 01/17/22 11:59 Resp 14 01/17/22 11:59 BP 111/52 L 01/17/22 11:59 Pulse Ox 95 01/17/22 11:59 Oxygen Flow Rate 2 01/15/22 14:17 BMI result Body Mass Index 28.7 Const: General: no acute distress Eyes: EOM: EOMs intact bilaterally Chest: Other: Permcath right side of chest wall Resp: Auscultation: diminished lung sounds Cardio: Rate: regular rate GI: Palpation (GI): Soft to palpation : Other: Supra pubic catheter present Objective Data Labs CBC & Chem 7: 01/17/22 07:55 01/17/22 07:55 Labs: Laboratory Results - last 24 hr 01/16/22 01/17/22 01/17/22 16:25 07:55 07:55 WBC 10.7 RBC 2.55 L Hgb 8.4 L Hct 26.8 L MCV 105.1 H MCH 32.9 MCHC 31.3 RDW 17.3 H Plt Count 226 MPV 9.4 Absolute Nucleated RBC 0.000 Nucleated RBC % (auto) 0.0 Sodium 136 Potassium 4.5 Chloride 100 Carbon Dioxide 25 Anion Gap 16 BUN 66 H Creatinine 7.07 H* Estim Creat Clear Calc 11.2 Estimated GFR 8 POC Glucose 128 H Random Glucose 121 H Calcium 8.7 Magnesium 2.1 Microbiology Microbiology Results: Microbiology 01/15/22 16:47 Urine clean catch - Urine francis top Urine Culture - Final 01/15/22 14:48 Blood - Venous Blood Culture - Preliminary No growth after 24 hours. 01/15/22 14:41 Blood - Venous Blood Culture - Preliminary No growth after 24 hours. Procedures Date of Service Date of Service: 01/17/22 Assessment & Plan Assessment and plan (1) ESRD on dialysis: Status: Acute Assessment and Plan: Usually gets HD on TTS ( [facility]) Tolerating HD this AM Renal Diet; Phos binders with meals Antibiotics dosed for GFR May need Right Pl effusion drained Will need pacemaker Procrit 1999) TTS Shall continue to closely follow up Time Spent With Patient Time: Total time spent is greater than 50% in coordination of care (as documented) at patient's floor/unit and/or counseling patient: Progress Note: Quality Stroke Does the patient have a stroke diagnosis?: No
--- NOTE | 2022-01-17 15:06 | MHC.CM.PN ---
Met with pt to discuss d/c plans: Pt resides alone and has assistance provided by his neighbors one of which is an RN. They assist with transportation and any other need pt has. Pt is active with [facility] on the [facility] , , with [facility] shuttle transportation. Pt uses a [employer] and has been vaxed x3. Pt states he will return to home with existing [facility] chair time and assistance from neighbors who will transport him home. He declines VNA at this time but states if he requires it, he would like [facility]. No referral made at this time. IMM in chart: HCP copy requested.
--- NOTE | 2022-01-17 15:38 | W.PM.CCCN ---
History of Present Illness Data of Consult Service Date: 01/17/22 Requesting physician: Luis Chisholm Primary Care Provider: Biju Redd MD HPI Reason for consult: symptomatic bradycardia including syncope 66-year-old dialysis dependent end-stage renal disease presenting with several months of progressive exertional weakness fatigability shortness of breath and recurring transient date of pleural effusion requiring thoracentesis who had 1 syncopal episode on dialysis and I believe this is all related to rhythm mechanism and in adequate heart rate not just to meet exertional needs but even to compensate for drops in blood pressure related to dialysis sore position all explained in the company of his hospitalist position and he fully understood does desire to proceed but we need to hold off until at least afternoon tomorrow to distance ourselves from his dose of apixaban this morning Review of Systems Review of Systems: Yes all other systems are reviewed and are negative [facility] Past Medical History Medical History (Updated 01/17/22 @ 15:43 by Yas Lawrence MD) A-fib CAD (coronary artery disease) CHF (congestive heart failure) Chronic kidney disease (CKD) COVID-19 Diabetes ESRD on dialysis Gout 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 HTN (hypertension) Prostate CA Suprapubic catheter Symptomatic bradycardia Functional capacity: independent ambulation Family History Family History Father Renal failure Family history: reviewed and not pertinent Social History Social History Household Members: None Household Members Other:: tenant next door Housing: House Do you presently have visiting nurse or other home services: Yes (visiting nurses set up) Alcohol intake: former Patient Tobacco Use Status: Never used Tobacco Use of substances other than those prescribed or required for medical reasons: No Advance Directives: No Advance Directives Information Provided: No Advance Directives Date on File: 11/20/21 service: No Current occupational status: disabled Meds Allergies Allergy/AdvReac Type Severity Reaction Status Date / Time allopurinol Allergy Rash Verified 11/20/21 11:41 Active Medications: Current Medications Acetaminophen (Acetaminophen 325 Mg Tablet) 650 mg PO Q6H PRN PRN Reason: Pain, Mild (Pain Scale 1-3) Last Admin: 01/17/22 01:01 Dose: 650 mg Documented by: Albuterol Sulfate (Albuterol Sulfate 90 Mcg 8 Gm Inhaler) 2 puff INHALE Q6H PRN PRN Reason: Wheezing Cyanocobalamin (Cyanocobalamin (Vitamin B-12) 1,000 Mcg Tablet) 1,000 mcg PO DAILY [facility] Last Admin: 01/17/22 11:45 Dose: 1,000 mcg Documented by: Dextrose (Dextrose 50 % 25 Gm/50 Ml Syringe) 25 gm IVPUSH Q15M PRN; Protocol PRN Reason: per Hypoglycemia Standing Ord. Docusate Sodium (Docusate Sodium 100 Mg Capsule) 100 mg PO DAILY PRN PRN Reason: Constipation Duloxetine HCl (Duloxetine Hcl 20 Mg Capsule.Dr) 20 mg PO DAILY [facility] Last Admin: 01/17/22 11:44 Dose: 20 mg Documented by: Ergocalciferol (Ergocalciferol (Vitamin D2) 1,250 Mcg Capsule) 1,250 mcg PO SA [facility] Gabapentin (Gabapentin 100 Mg Capsule) 100 mg PO BID [facility] Last Admin: 01/17/22 11:44 Dose: 100 mg Documented by: Glucose (Glucose Gel 15 Gm Gel..Gram.) 15 gm PO Q15M PRN; Protocol PRN Reason: per Hypoglycemia Standing Ord. Heparin Sodium (Porcine) (Heparin Sodium,Porcine 5,000 Unit/Ml Vial) 5,000 unit INTRACATH [id number] [facility] Levofloxacin (Levaquin) 500 mg in 100 mls @ 100 mls/hr IV ONCE ONE Stop: 01/17/22 16:44 Insulin Human Lispro (Insulin Lispro 100 Unit/Ml 3 Ml Vial) 0 unit SUBCUT QIDACHS [facility]; Protocol Last Admin: 01/17/22 13:54 Dose: Not Given Documented by: Multivitamins/Vitamin C (Multivitamin Tablet) 1 tab PO DAILY [facility] Last Admin: 01/17/22 11:44 Dose: 1 tab Documented by: Non-Formulary Medication (Febuxostat [Uloric]) 40 mg PO DAILY [facility] Pharmacy Consult (Consult Rx Perform Med Rec) 1 each MISCELLANE ONCE PRN PRN Reason: Consult order Sevelamer Carbonate (Sevelamer Carbonate Tablet 800 Mg Tablet) 1,600 mg PO TID [facility] Last Admin: 01/17/22 11:44 Dose: 1,600 mg Documented by: Sodium Chloride (0.9 % Sodium Chloride Flush 3 Ml Syringe) 3 ml IVFLUSH QSHIFT [facility] Last Admin: 01/17/22 09:09 Dose: Not Given Documented by: Home Medications Medication Instructions Recorded Confirmed Last Taken Type acetaminophen 325 mg tablet 650 mg PO Q6H PRN 11/20/21 01/15/22 11/19/21 History albuterol sulfate 90 mcg/actuation 2 puff INHALATION Q6H PRN 11/20/21 01/15/22 11/19/21 History aerosol inhaler (ProAir HFA) apixaban 2.5 mg tablet (Eliquis) 2.5 mg PO BID 11/20/21 01/15/22 11/19/21 History cholecalciferol (vitamin D3) 1,250 1 cap PO SA 11/20/21 01/15/22 11/19/21 History mcg (50,000 unit) capsule cyanocobalamin (vitamin B-12) 1,000 mcg PO DAILY 11/20/21 01/15/22 11/19/21 History 1,000 mcg tablet duloxetine 20 mg capsule,delayed 20 mg PO DAILY 11/20/21 01/15/22 11/19/21 History release (Cymbalta) febuxostat 40 mg tablet (Uloric) 40 mg PO DAILY 11/20/21 01/15/22 11/19/21 History insulin lispro 100 unit/mL 1 sliding scale dose SUBCUT 11/20/21 01/15/22 11/19/21 History subcutaneous pen USEASDIRECTD sevelamer carbonate 800 mg tablet 1,600 mg PO TID 11/20/21 01/15/22 11/19/21 History amlodipine 2.5 mg tablet 1 tab PO DAILY 01/15/22 01/15/22 Unknown History gabapentin 100 mg capsule 1 tab PO BID 01/15/22 01/15/22 Unknown History vitamin B complex-vitamin C-folic 1 tab PO DAILY 01/15/22 01/15/22 Unknown History acid 0.8 mg tablet (Isaura-Gabrielle) Physical Exam Vital Signs: Vital Signs: Last Vital Signs Temp 98.1 F 01/17/22 04:01 Pulse 52 01/17/22 11:59 Resp 14 01/17/22 11:59 BP 111/52 L 01/17/22 11:59 Pulse Ox 95 01/17/22 11:59 Oxygen Flow Rate 2 01/15/22 14:17 BMI result Body Mass Index 28.7 awake alert oriented and nonfocal neurologically cardiac exam described lower limit normal ejection fraction with mild concentric left ventricular hypertrophy and mild secondary pulmonary hypertension and RV dilatation Results Labs CBC & Chem 7: 01/17/22 07:55 01/17/22 07:55 Labs: Short CBC 01/17/22 Range/Units 07:55 WBC 10.7 (4.8-10.8) X10*3/uL Hgb 8.4 L (14.0-18.0) g/dl Hct 26.8 L (42.0-52.0) % Plt Count 226 (160-400) X10*3/uL BMP 01/17/22 07:55 Sodium 136 Potassium 4.5 Chloride 100 Carbon Dioxide 25 BUN 66 H Creatinine 7.07 H* Calcium 8.7 Microbiology Microbiology Results: Microbiology 01/15/22 16:47 Urine clean catch - Urine francis top Urine Culture - Final 01/15/22 14:48 Blood - Venous Blood Culture - Preliminary No growth after 24 hours. 01/15/22 14:41 Blood - Venous Blood Culture - Preliminary No growth after 24 hours. Assessment and Plan (1) Junctional bradycardia: Status: Acute (2) Atrial fibrillation with slow ventricular response: Status: Acute (3) ESRD on dialysis: Status: Acute (4) Syncope: Status: Acute (5) CHF (congestive heart failure): Status: Acute (6) CKD (chronic kidney disease): Status: Acute (7) Shortness of breath: Status: Acute (8) Acute UTI: Status: Acute (9) Acute on chronic anemia: Status: Acute (10) Symptomatic bradycardia: Status: Acute Plan I agree that I think all the entire constellation of symptoms is related to symptomatic bradycardia and if possible restoring not just sinus mechanism but AV synchrony I think will be very important improving all the above symptoms
[2022-01-17] MEDS: levoFLOXacin/D5W 500 MG/100 ML PIGGYBACK 100 MG IV (16:47)
--- NOTE | 2022-01-17 17:30 | PC.NURSE ---
Pt resting comfortably, suprapubic tube came out, balloon fully deflated, replaced by MD Chisholm, no complaints of pain. Call ya within reach, plan for pacer tomorrow, will be NPO at midnight.
[2022-01-17] MEDS: Insulin Lispro 100 UNIT/ML 3 ML VIAL SUBCUT (18:00)
[2022-01-17] MEDS: vancomycin HCL 1,250 MG in 0.9 % Sodium Chloride 250 ML 166.67 MG IV (18:00)
[2022-01-17 20:30] VITALS: BP 128/72; PULSE 36; O2SAT 98
[2022-01-17] MEDS: 0.9 % Sodium Chloride Flush 3 ML SYRINGE IVFLUSH (20:47)
[2022-01-17 22:00] VITALS: BP 121/51; PULSE 53; RESP 18
[2022-01-17 22:08] LABS: Glucose, Whole Blood 99 mg/dL (60-115)
--- NOTE | 2022-01-17 22:57 | PC.NURSE ---
Addendum entered by Verónica Jeffery RN 01/17/22 23:22: report called to RN at [facility] [id number] Original Note: Pt seen on bed at shift change alert and oriented, denies any pain nor CP, permacath noted on the L ACW, dressing dry and intact, Suprapubic cath noted that is APOLINAR, meds tolerated, AF with PVCs on tele, POC=99, toleating room air, for pacer placement in the morning, NPO post midnight instructed to the pt.
[2022-01-18] VITALS (9 sets, daily range): BP systolic 104–127; BP diastolic 48–66; PULSE 53–105; RESP 16–22; TEMP 36.5–37.1; O2SAT 91–99; BMI 29.5
[2022-01-18 07:02] LABS: MANUAL DIFF FLAG NO
[2022-01-18 07:14] LABS: Basophils Absolute Auto 0.1 X10*3/uL (0.0-0.2); Basophils Percent Auto 0.5 % (0-2); Eosinophils Absolute Auto 0.4 X10*3/uL (0.0-0.4); Hemoglobin 9.2 g/dl (14.0-18.0); Imm Gran Abs Auto 0.04 X10*3/uL (0.00-0.03); Imm Gran Pct Auto 0.4 % (0.0-0.4); Lymphocytes Absolute Auto 0.5 X10*3/uL (1.2-4.9); Lymphocytes Percent Auto 5.6 % (20-40); Mean Corpuscular HGB Conc 31.7 g/dl (31.0-36.0); Mean Corpuscular Volume 103.9 fL (80.0-98.0); Mean Platelet Volume 9.5 fL (9.4-12.4); Monocytes Absolute Auto 1.1 X10*3/uL (0.1-1.2); Monocytes Percent Auto 11.3 % (2-11); Neutrophils Absolute Auto 7.4 x10*3/uL (2.0-8.3); Neutrophils Percent Auto 78.2 % (45-73); Platelet Count 219 X10*3/uL (160-400); Red Blood Count 2.79 X10*6/uL (4.60-5.80); Red Cell Distribution Width 17.1 % (11.0-16.0); White Blood Count 9.4 X10*3/uL (4.8-10.8)
[2022-01-18 07:21] LABS: Glucose, Whole Blood 119 mg/dL (60-115)
[2022-01-18 07:21] LABS: INTERNATIONAL NORM RATIO 1.4 (0.9-1.1)
[2022-01-18 07:24] LABS: Partial Thromboplastin Time 35.7 SEC (24.1-38.0)
[2022-01-18 07:41] LABS: Anion Gap 15 (12-20); Blood Urea Nitrogen 44 mg/dL (9-16); Calcium 8.8 mg/dL (8.4-10.2); Carbon Dioxide 24 mmol/L (22-29); Chloride 98 mmol/L (96-108); Creatinine Clr Calc Pharmacy 15.4; Estimated Glomerular Filt Rate 11; Glucose Random 119 mg/dL (60-115); Potassium 4.4 mmol/L (3.3-5.1); Sodium 133 mmol/L (135-145)
[2022-01-18] MEDS: 0.9 % Sodium Chloride Flush 3 ML SYRINGE IVFLUSH ×3 (07:42→21:23)
--- NOTE | 2022-01-18 10:10 | PM.PNNEP ---
Subjective Subjective Date of Service: 01/18/22 Interval history: Seen this AM. No new issues. Due Pacemaker today Physical Exam Vital Signs: Vital Signs: Last Vital Signs Temp 97.8 F 01/18/22 07:35 Pulse 105 H 01/18/22 07:35 Resp 22 H 01/18/22 07:35 BP 106/48 L 01/18/22 07:35 Pulse Ox 93 01/18/22 07:35 Oxygen Flow Rate 2 01/15/22 14:17 BMI result Body Mass Index 29.5 Const: General: comfortable HENMT: Head: Yes normocephalic Eyes: EOM: EOMs intact bilaterally Neck: Neck: Yes supple Resp: Auscultation: diminished lung sounds Cardio: Rate: regular rate GI: Palpation (GI): Soft to palpation Neuro: General: moves all extremities Objective Data Labs CBC & Chem 7: 01/18/22 06:53 01/18/22 06:53 Labs: Laboratory Results - last 24 hr 01/17/22 01/18/22 01/18/22 22:04 06:53 06:53 WBC 9.4 RBC 2.79 L Hgb 9.2 L Hct 29.0 L MCV 103.9 H MCH 33.0 MCHC 31.7 RDW 17.1 H Plt Count 219 MPV 9.5 Immature Gran % (Auto) 0.4 Neut % (Auto) 78.2 H Lymph % (Auto) 5.6 L [place] % (Auto) 11.3 H Eos % (Auto) 4.0 Baso % (Auto) 0.5 Lymph # (Auto) 0.5 L [place] # (Auto) 1.1 Eos # (Auto) 0.4 Baso # (Auto) 0.1 Abs Immat Gran (auto) 0.04 H Absolute Neuts (auto) 7.4 Absolute Nucleated RBC 0.000 Nucleated RBC % (auto) 0.0 PT 16.0 H INR 1.4 H APTT 35.7 Sodium Potassium Chloride Carbon Dioxide Anion Gap BUN Creatinine Estim Creat Clear Calc Estimated GFR POC Glucose 99 Random Glucose Calcium 01/18/22 01/18/22 06:53 07:00 WBC RBC Hgb Hct MCV MCH MCHC RDW Plt Count MPV Immature Gran % (Auto) Neut % (Auto) Lymph % (Auto) [place] % (Auto) Eos % (Auto) Baso % (Auto) Lymph # (Auto) [place] # (Auto) Eos # (Auto) Baso # (Auto) Abs Immat Gran (auto) Absolute Neuts (auto) Absolute Nucleated RBC Nucleated RBC % (auto) PT INR APTT Sodium 133 L Potassium 4.4 Chloride 98 Carbon Dioxide 24 Anion Gap 15 BUN 44 H Creatinine 5.22 H* Estim Creat Clear Calc 15.4 Estimated GFR 11 POC Glucose 119 H Random Glucose 119 H Calcium 8.8 Microbiology Microbiology Results: Microbiology 01/15/22 14:48 Blood - Venous Blood Culture - Preliminary No growth after 48 hours. 01/15/22 14:41 Blood - Venous Blood Culture - Preliminary No growth after 48 hours. 01/15/22 16:47 Urine clean catch - Urine francis top Urine Culture - Final Procedures Date of Service Date of Service: 01/18/22 Assessment & Plan Assessment and plan (1) ESRD on dialysis: Status: Acute Assessment and Plan: Usually gets HD on TTS ( [facility]) Tolerated HD yesterday morning Renal Diet; Phos binders with meals Antibiotics dosed for GFR May need Right Pl effusion drained Pacemaker today Procrit 2000) TTS( ordered) Shall continue to closely follow up Time Spent With Patient Time: Total time spent is greater than 50% in coordination of care (as documented) at patient's floor/unit and/or counseling patient: Progress Note: Quality Stroke Does the patient have a stroke diagnosis?: No
--- NOTE | 2022-01-18 10:43 | P.PNIM_ITS ---
Subjective Subjective Date of Service: 01/18/22 <JARVIS Humphries - Last Filed: 01/18/22 11:00> 02/01/22 <Luis Chisholm DO - Last Filed: 02/01/22 13:05> Interval History: seen and examined this morning denies shortness of breath, chest pain, dizziness at this time plan for pacemaker today, patient in agreement <JARVIS Humphries - Last Filed: 01/18/22 11:00> Review of Systems Review of Systems: Yes all other systems are reviewed and are negative <JARVIS Humphries - Last Filed: 01/18/22 11:00> Constitutional Constitutional: Denies chills and Denies fever(s) <JARVIS Humphries - Last Filed: 01/18/22 11:00> Cardiovascular Cardiovascular: Denies chest pain, Denies palpitations and Denies dyspnea <JARVIS Humphries - Last Filed: 01/18/22 11:00> Respiratory Respiratory: Denies dyspnea <JARVIS Humphries - Last Filed: 01/18/22 11:00> Gastrointestinal Gastrointestinal: Denies abdominal pain <JARVIS Humphries - Last Filed: 01/18/22 11:00> Endocrine Endocrine: Denies palpitations <JARVIS Humphries - Last Filed: 01/18/22 11:00> Physical Exam Vital Signs: Vital Signs: Last Vital Signs Temp 97.8 F 01/18/22 07:35 Pulse 105 H 01/18/22 07:35 Resp 22 H 01/18/22 07:35 BP 106/48 L 01/18/22 07:35 Pulse Ox 93 01/18/22 07:35 Oxygen Flow Rate 2 01/15/22 14:17 BMI result Body Mass Index 29.5 <JARVIS Humphries - Last Filed: 01/18/22 11:00> Const: General: cooperative, comfortable, no acute distress, alert and awake <JARVIS Humphries - Last Filed: 01/18/22 11:00> Nutritional Appearance: average body habitus <JARVIS Humphries - Last Filed: 01/18/22 11:00> Chest: Other: dialysis cath present right chest wall <JARVIS Humphries - Last Filed: 01/18/22 11:00> Resp: Other: diminished right base, otherwise clear to auscultation <JARVIS Humphrise - Last Filed: 01/18/22 11:00> Effort & Inspection: normal respiratory effort and able to speak in complete sentences <JARVIS Humphries - Last Filed: 01/18/22 11:00> Cardio: Rate: bradycardic <JARVIS Humphries - Last Filed: 01/18/22 11:00> Rhythm: abnormal rhythm <JARVIS Humphries - Last Filed: 01/18/22 11:00> GI: Inspection: No distended <JARVIS Humphries - Last Filed: 01/18/22 11:00> Palpation (GI): Soft to palpation and nontender <JARVIS Humphries - Last Filed: 01/18/22 11:00> : Other: Suprapubic catheter present <JARVIS Humphries - Last Filed: 01/18/22 11:00> Skin: Other: <JARVIS Humphries - Last Filed: 01/18/22 11:00> Extrem: Other: no leg edema <JARVIS Humphries - Last Filed: 01/18/22 11:00> Objective Data Active Medications Acetaminophen (Acetaminophen 325 Mg Tablet) 650 mg PO Q6H PRN PRN Reason: Pain, Mild (Pain Scale 1-3) Last Admin: 01/17/22 01:01 Dose: 650 mg Documented by: RICHARD Albuterol Sulfate (Albuterol Sulfate 90 Mcg 8 Gm Inhaler) 2 puff INHALE Q6H PRN PRN Reason: Wheezing Cyanocobalamin (Cyanocobalamin (Vitamin B-12) 1,000 Mcg Tablet) 1,000 mcg PO DAILY [facility] Last Admin: 01/18/22 07:42 Dose: Not Given Documented by: DIEGO Non-Admin Reason: NPO Dextrose (Dextrose 50 % 25 Gm/50 Ml Syringe) 25 gm IVPUSH Q15M PRN; Protocol PRN Reason: per Hypoglycemia Standing Ord. Docusate Sodium (Docusate Sodium 100 Mg Capsule) 100 mg PO DAILY PRN PRN Reason: Constipation Duloxetine HCl (Duloxetine Hcl 20 Mg Capsule.Dr) 20 mg PO DAILY [facility] Last Admin: 01/18/22 07:42 Dose: Not Given Documented by: DIEGO Non-Admin Reason: NPO Epoetin Marvin (Epoetin Marvin 20,000 Unit/Ml Vial) 20,000 unit SUBCUT ONCE@1000 [facility] Stop: 01/20/22 10:01 Ergocalciferol (Ergocalciferol (Vitamin D2) 1,250 Mcg Capsule) 1,250 mcg PO SA [facility] Last Admin: 01/18/22 05:26 Dose: Not Given Documented by: LARRY Non-Admin Reason: Patient currently on different floor Gabapentin (Gabapentin 100 Mg Capsule) 100 mg PO BID [facility] Last Admin: 01/18/22 07:43 Dose: Not Given Documented by: DIEGO Non-Admin Reason: NPO Glucose (Glucose Gel 15 Gm Gel..Gram.) 15 gm PO Q15M PRN; Protocol PRN Reason: per Hypoglycemia Standing Ord. Heparin Sodium (Porcine) (Heparin Sodium,Porcine 5,000 Unit/Ml Vial) 5,000 unit INTRACATH TUTHSA@1645 [facility] Last Admin: 01/18/22 05:26 Dose: Not Given Documented by: LARRY Non-Admin Reason: Patient currently on new floor Insulin Human Lispro (Insulin Lispro 100 Unit/Ml 3 Ml Vial) 0 unit SUBCUT QIDACHS [facility]; Protocol Last Admin: 01/18/22 07:35 Dose: Not Given Documented by: DIEGO Non-Admin Reason: No Insulin Coverage Multivitamins/Vitamin C (Multivitamin Tablet) 1 tab PO DAILY [facility] Last Admin: 01/18/22 07:43 Dose: Not Given Documented by: DIEGO Non-Admin Reason: NPO Non-Formulary Medication (Febuxostat [Uloric]) 40 mg PO DAILY [facility] Pharmacy Consult (Consult Rx Perform Med Rec) 1 each MISCELLANE ONCE PRN PRN Reason: Consult order Sevelamer Carbonate (Sevelamer Carbonate Tablet 800 Mg Tablet) 1,600 mg PO TID [facility] Last Admin: 01/18/22 07:43 Dose: Not Given Documented by: DIEGO Non-Admin Reason: NPO Sodium Chloride (0.9 % Sodium Chloride Flush 3 Ml Syringe) 3 ml IVFLUSH QSHIFT [facility] Last Admin: 01/18/22 07:42 Dose: 3 ml Documented by: DIEGO <JARVIS Humphries - Last Filed: 01/18/22 11:00> Labs CBC & Chem 7: : 01/19/22 05:35 01/23/22 06:20 <JARVIS Humphries - Last Filed: 01/18/22 11:00> Labs: Laboratory Results - last 24 hr 01/17/22 01/18/22 01/18/22 22:04 06:53 06:53 MCV 103.9 H MCH 33.0 MCHC 31.7 RDW 17.1 H Plt Count 219 MPV 9.5 Immature Gran % (Auto) 0.4 Neut % (Auto) 78.2 H Lymph % (Auto) 5.6 L [place] % (Auto) 11.3 H Eos % (Auto) 4.0 Baso % (Auto) 0.5 Lymph # (Auto) 0.5 L [place] # (Auto) 1.1 Eos # (Auto) 0.4 Baso # (Auto) 0.1 Abs Immat Gran (auto) 0.04 H Absolute Neuts (auto) 7.4 Absolute Nucleated RBC 0.000 Nucleated RBC % (auto) 0.0 PT 16.0 H INR 1.4 H APTT 35.7 Anion Gap Estim Creat Clear Calc Estimated GFR POC Glucose 99 Random Glucose Calcium 01/18/22 01/18/22 06:53 07:00 MCV MCH MCHC RDW Plt Count MPV Immature Gran % (Auto) Neut % (Auto) Lymph % (Auto) [place] % (Auto) Eos % (Auto) Baso % (Auto) Lymph # (Auto) [place] # (Auto) Eos # (Auto) Baso # (Auto) Abs Immat Gran (auto) Absolute Neuts (auto) Absolute Nucleated RBC Nucleated RBC % (auto) PT INR APTT Anion Gap 15 Estim Creat Clear Calc 15.4 Estimated GFR 11 POC Glucose 119 H Random Glucose 119 H Calcium 8.8 <JARVIS Humphries - Last Filed: 01/18/22 11:00> Microbiology Microbiology Results: Microbiology 01/15/22 14:48 Blood Culture - Preliminary Blood - Venous No growth after 48 hours. 01/15/22 14:41 Blood Culture - Preliminary Blood - Venous No growth after 48 hours. 01/15/22 16:47 Urine Culture - Final Urine clean catch - Urine francis top <JARVIS Humphries - Last Filed: 01/18/22 11:00> Assessment and Plan (1) Symptomatic bradycardia: Status: Resolved <JARVIS Humphries - Last Filed: 01/18/22 11:00> (2) Atrial fibrillation with slow ventricular response: Status: Resolved <JARVIS Humphries - Last Filed: 01/18/22 11:00> Plan This is a 66-year-old male with history of ESRD on HD (Tu[facility]), atrial fibrillation Eliquis, CHF, CAD chronic suprapubic catheter sent to the emergency department from dialysis due to hypotension and bradycardia with question syncope Possible Syncope Reportedly bradycardic and hypotensive at dialysis Heart rate as low as 30s No evidence of hypotension since admission echo with preserved EF, grade II diastolic dysfunction, mild MR, TR, mild pulmonary hypertension orthostatic bp from admission positive likely secondary to bradycardia, inadequate ability to compensate for drop in bp at dialysis cardiology following plan for pacemaker this afternoon chronic atrial fibrillation with slow ventricular response Heart rate as low as 30s. Patient reports chronic bradycardia with heart rate in the 30s at times Not on any rate lowering medication Eliquis on hold due to plan for pacemaker -continue tele monitoring -cardiology following, see above Hypertension Given hypotensive episode at dialysis, will hold Norvasc (dose of norvasc recently decreased to 2.5) BP has been on lower side without BP meds Monitor blood pressure closely elevated troponin trops flat ekg with some new t wave inversions no chest pain echo as above cardiology following UTI Related to chronic suprapubic catheter No evidence of sepsis Seen by ID, Initially treated with Meropenem due to 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 Curiel suprapubic catheter fell out and was replaced yesterday with 18fr with 10cc balloon per urology rec recently started on gabapentin for ?component of neuropathic pain ESRD on HD Tu,Th, Sa HD 01/17 -nephrology following Right pleural effusion doesn't seem to be symptomatic at this time. not requiring supplemental oxygen may be secondary to heart failure in setting of bradycardia monitor respiratory status closely consider drainage if develops respiratory symptoms Diabetes Not on baseline meds HbA1c 6.0 -SSI, POCs small open coccyx wound and chronic skin changes. present on admission continue local wound care frequent position changes Code status- full code HCP - Fili Chairez [phone], very involved and knowledgeable about medical history. called and updated Attending - Dr. Chisholm Dispo - pt and HCP goal home with services but willing for SNF if necessary; PT eval pending <JARVIS Humphries - Last Filed: 01/18/22 11:00> This is a 66-year-old male with history of ESRD on HD (TuThSa), atrial fibrillation Eliquis, CHF, CAD chronic suprapubic catheter sent to the emergency department from dialysis due to hypotension and bradycardia with question syncope Possible Syncope Reportedly bradycardic and hypotensive at dialysis Heart rate as low as 30s No evidence of hypotension since admission echo with preserved EF, grade II diastolic dysfunction, mild MR, TR, mild pulmonary hypertension orthostatic bp from admission positive likely secondary to bradycardia, inadequate ability to compensate for drop in bp at dialysis cardiology following plan for pacemaker this afternoon chronic atrial fibrillation with slow ventricular response Heart rate as low as 30s. Patient reports chronic bradycardia with heart rate in the 30s at times Not on any rate lowering medication Eliquis on hold due to plan for pacemaker -continue tele monitoring -cardiology following, see above Hypertension Given hypotensive episode at dialysis, will hold Norvasc (dose of norvasc recently decreased to 2.5) BP has been on lower side without BP meds Monitor blood pressure closely elevated troponin trops flat ekg with some new t wave inversions no chest pain echo as above cardiology following UTI Related to chronic suprapubic catheter No evidence of sepsis Seen by ID, Initially treated with Meropenem due to 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 Curiel suprapubic catheter fell out and was replaced yesterday with 18fr with 10cc balloon per urology rec recently started on gabapentin for ?component of neuropathic pain ESRD on HD ,Th, Sa HD 01/17 -nephrology following Right pleural effusion doesn't seem to be symptomatic at this time. not requiring supplemental oxygen may be secondary to heart failure in setting of bradycardia monitor respiratory status closely consider drainage if develops respiratory symptoms Diabetes Not on baseline meds HbA1c 6.0 -SSI, POCs small open coccyx wound and chronic skin changes. present on admission continue local wound care frequent position changes Code status- full code HCP - Fili Chairez [phone], very involved and knowledgeable about medical history. called and updated Attending - Dr. Chisholm Dispo - pt and HCP goal home with services but willing for SNF if necessary; PT eval pending Pt seen/examined. Agree with H+P/physical exam and assessment /plan as outlined by Ms. Ortiz <Luis Chisholm, - Last Filed: 02/01/22 13:05> Quality Stroke Does the patient have a stroke diagnosis?: No <JARVIS Humphries - Last Filed: 01/18/22 11:00> VTE Prior VTE?: No <JARVIS Humphries - Last Filed: 01/18/22 11:00> VTE Risk Level:: Medical - moderate - high <JARVIS Humphries - Last Filed: 01/18/22 11:00> VTE Device Contraindication: N/A - Device Ordered <JARVIS Humphries - Last Filed: 01/18/22 11:00> VTE Drug Contraindication: N/A - Med Ordered <JARVIS Humphries - Last Filed: 01/18/22 11:00>
[2022-01-18 10:59] LABS: Glucose, Whole Blood 114 mg/dL (60-115)
--- NOTE | 2022-01-18 11:12 | P.PNCA_ITS ---
Subjective Subjective Date of Service: 01/18/22 Interval history: He states that he feels ok. No new complaints. Review of Systems Review of Systems Yes all other systems are reviewed and are negative Cardiovascular: Reports as per HPI, Reports no additional cardiovascular complaints, Denies acrocyanosis, Denies cool extremities, Denies chest pain, Denies diaphoresis, Denies syncope, Denies claudication, Denies leg edema, Denies lightheadedness, Denies palpitations and Denies dyspnea Respiratory: Denies dyspnea Denies syncope Endocrine: Denies palpitations Physical Exam Vital Signs: Last Vital Signs Temp 97.8 F 01/18/22 07:35 Pulse 105 H 01/18/22 07:35 Resp 22 H 01/18/22 07:35 BP 106/48 L 01/18/22 07:35 Pulse Ox 93 01/18/22 07:35 Oxygen Flow Rate 2 01/15/22 14:17 BMI result Body Mass Index 29.5 Const General: comfortable HENMT Other: Unremarkable Neck Neck: Yes normal visual inspection Chest Chest palpation & inspection: normal inspection of the chest Resp Auscultation: clear to auscultation bilaterally Cardio Palpation: normal PMI Heart sounds: S1 normal heart sound present, S2 normal heart sound present, no gallops, no murmurs and no rubs GI Palpation (GI): Soft to palpation Back/Spine/Pelvis Other: unremarkable Skin Lesions: other Neuro General: other Extrem General: Yes other Psych Mental Status: other Objective Labs and Meds Result diagrams: 01/18/22 06:53 01/18/22 06:53 Lab results: Laboratory Results - last 24 hr 01/17/22 01/18/22 01/18/22 22:04 06:53 06:53 WBC 9.4 RBC 2.79 L Hgb 9.2 L Hct 29.0 L MCV 103.9 H MCH 33.0 MCHC 31.7 RDW 17.1 H Plt Count 219 MPV 9.5 Immature Gran % (Auto) 0.4 Neut % (Auto) 78.2 H Lymph % (Auto) 5.6 L [place] % (Auto) 11.3 H Eos % (Auto) 4.0 Baso % (Auto) 0.5 Lymph # (Auto) 0.5 L [place] # (Auto) 1.1 Eos # (Auto) 0.4 Baso # (Auto) 0.1 Abs Immat Gran (auto) 0.04 H Absolute Neuts (auto) 7.4 Absolute Nucleated RBC 0.000 Nucleated RBC % (auto) 0.0 PT 16.0 H INR 1.4 H APTT 35.7 Sodium Potassium Chloride Carbon Dioxide Anion Gap BUN Creatinine Estim Creat Clear Calc Estimated GFR POC Glucose 99 Random Glucose Calcium 01/18/22 01/18/22 01/18/22 06:53 07:00 10:47 WBC RBC Hgb Hct MCV MCH MCHC RDW Plt Count MPV Immature Gran % (Auto) Neut % (Auto) Lymph % (Auto) [place] % (Auto) Eos % (Auto) Baso % (Auto) Lymph # (Auto) [place] # (Auto) Eos # (Auto) Baso # (Auto) Abs Immat Gran (auto) Absolute Neuts (auto) Absolute Nucleated RBC Nucleated RBC % (auto) PT INR APTT Sodium 133 L Potassium 4.4 Chloride 98 Carbon Dioxide 24 Anion Gap 15 BUN 44 H Creatinine 5.22 H* Estim Creat Clear Calc 15.4 Estimated GFR 11 POC Glucose 119 H 114 Random Glucose 119 H Calcium 8.8 Progress Note: A&P Assessment and plan (1) Atrial fibrillation with slow ventricular response: Status: Acute (2) Junctional bradycardia: Status: Acute (3) Syncope: Status: Acute (4) ESRD on dialysis: Status: Acute Plan In the previous EKG from November, he had junctional bradycardia in the 30s. In the current EKG, he is in atrial fibrillation with relatively slow rate but not profound. On telemetry, he seems to have junctional rhythm going as low as 30s. Overall, it is possible that conduction system disease is leading to syncopal type symptoms during dialysis but not definitive. After discussing pros and cons, plan is to proceed with permanent pacemaker. He is not a candidate for leadless pacer either as he needs atrial pacing. H Labs reviewed-high sensitivity troponins-37 and 55. Cardiac BNP 823. Chest [id number] right pleural effusion; bibasilar disease; cardiomegaly. Echo- LVEF 54%. Moderately increased right ventricular size. Mild MR, TR, mild pulmonary hypertension. Fall Risk Details Current Medications: Current Medications Acetaminophen (Acetaminophen 325 Mg Tablet) 650 mg PO Q6H PRN PRN Reason: Pain, Mild (Pain Scale 1-3) Last Admin: 01/17/22 01:01 Dose: 650 mg Documented by: Albuterol Sulfate (Albuterol Sulfate 90 Mcg 8 Gm Inhaler) 2 puff INHALE Q6H PRN PRN Reason: Wheezing Cyanocobalamin (Cyanocobalamin (Vitamin B-12) 1,000 Mcg Tablet) 1,000 mcg PO DAILY [facility] Last Admin: 01/18/22 07:42 Dose: Not Given Documented by: Dextrose (Dextrose 50 % 25 Gm/50 Ml Syringe) 25 gm IVPUSH Q15M PRN; Protocol PRN Reason: per Hypoglycemia Standing Ord. Docusate Sodium (Docusate Sodium 100 Mg Capsule) 100 mg PO DAILY PRN PRN Reason: Constipation Duloxetine HCl (Duloxetine Hcl 20 Mg Capsule.Dr) 20 mg PO DAILY [facility] Last Admin: 01/18/22 07:42 Dose: Not Given Documented by: Epoetin Marvin (Epoetin Marvin 20,000 Unit/Ml Vial) 20,000 unit SUBCUT ONCE@1000 [facility] Stop: 01/20/22 10:01 Ergocalciferol (Ergocalciferol (Vitamin D2) 1,250 Mcg Capsule) 1,250 mcg PO SA [facility] Last Admin: 01/18/22 05:26 Dose: Not Given Documented by: Gabapentin (Gabapentin 100 Mg Capsule) 100 mg PO BID [facility] Last Admin: 01/18/22 07:43 Dose: Not Given Documented by: Glucose (Glucose Gel 15 Gm Gel..Gram.) 15 gm PO Q15M PRN; Protocol PRN Reason: per Hypoglycemia Standing Ord. Heparin Sodium (Porcine) (Heparin Sodium,Porcine 5,000 Unit/Ml Vial) 5,000 unit INTRACATH TUTHSA@1645 [facility] Last Admin: 01/18/22 05:26 Dose: Not Given Documented by: Insulin Human Lispro (Insulin Lispro 100 Unit/Ml 3 Ml Vial) 0 unit SUBCUT QIDACHS [facility]; Protocol Last Admin: 01/18/22 07:35 Dose: Not Given Documented by: Multivitamins/Vitamin C (Multivitamin Tablet) 1 tab PO DAILY [facility] Last Admin: 01/18/22 07:43 Dose: Not Given Documented by: Non-Formulary Medication (Febuxostat [Uloric]) 40 mg PO DAILY [facility] Pharmacy Consult (Consult Rx Perform Med Rec) 1 each MISCELLANE ONCE PRN PRN Reason: Consult order Sevelamer Carbonate (Sevelamer Carbonate Tablet 800 Mg Tablet) 1,600 mg PO TID [facility] Last Admin: 01/18/22 07:43 Dose: Not Given Documented by: Sodium Chloride (0.9 % Sodium Chloride Flush 3 Ml Syringe) 3 ml IVFLUSH QSHIFT [facility] Last Admin: 01/18/22 07:42 Dose: 3 ml Documented by: Time Spent With Patient Time: Total time spent is greater than 50% in coordination of care (as documented) at patient's floor/unit and/or counseling patient: Time with patient: less than 15 minutes Progress Note: Quality Stroke Does the patient have a stroke diagnosis?: No Procedures Date of Service Date of Service: 01/18/22
--- NOTE | 2022-01-18 14:44 | W.PM.OPN ---
Operative Note Operative Note Date of Service: 01/18/22 Narrative: patient with background atrial fibrillation high-grade AV block possible junctional escape at a rate of 30-35 with narrow QRS but with multiple indications of symptomatic bradycardia including syncope and progressive exertional dysfunction manifested by fatigue weakness shortness of breath and recurring right pleural effusion I believe on the basis of congestive heart failure after sterile preparation and draping in the usual fashion utilizing fluoroscopic guidance we 1st performed left subclavian venography highlighting the subclavian venous system demonstrating patency then made careful incision and dissection down to the level of the prepectoral fascia securing all bleeders and creating the pocket partially along the plane of the prepectoral fascia and then I gain separate entry x2 into the intrathoracic portion of the subclavian vein passing retrograde with Seldinger technique 2 J tipped guidewires to the right atrium all without complication then 6 Kinyarwanda introducers and then through which 1st the right atrial lead was placed near the superior vena caval junction near the sinus node and we demonstrated that the atrial mechanism was atrial fibrillation with good sensing at about 0.6 mV excellent impedance and stable at 460 Ohms and 0.7 mV sensing so that lead was sewn in tethered to the pectoral muscle in the floor the pocket next a past an active fixation right ventricular lead to the right ventricular apex and screw was deployed it was well tethered no capture of the diaphragm at 10 volts sensing was excellent at the 6 mV with excellent injury current stable resistance of 540 Ohms capture threshold 0.5 volts at 0.4 milliseconds so that lead was sewn in tethered to the pectoral muscle in the floor of the pocket both leads were then attached to the generator screwed both well tethered no change in impedance and the pocket was completed by blunt dissection along the plane of the prepectoral fascia and generator and leads then placed in the pocket and the wound was closed in 3 layers and sterilely dressed patient removed from the table without complication awake and alert and awaiting chest x-ray
--- NOTE | 2022-01-18 15:14 | HO.ANESPROP2 ---
[facility] Active Problems Active Problems: All Active Problems (Updated 01/17/22 @ 15:43 by Yas Lawrence MD) Symptomatic bradycardia (Acute) Junctional bradycardia (Acute) Atrial fibrillation with slow ventricular response (Acute) ESRD on dialysis (Acute) A-fib (Acute) Syncope (Acute) CHF (congestive heart failure) (Acute) CKD (chronic kidney disease) (Acute) Shortness of breath (Acute) Acute UTI (Acute) Acute on chronic anemia (Acute) Past Medical History Medical History (Updated 01/17/22 @ 15:43 by Yas Lawrence MD) A-fib CAD (coronary artery disease) CHF (congestive heart failure) Chronic kidney disease (CKD) COVID-19 Diabetes ESRD on dialysis Gout 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 HTN (hypertension) Prostate CA Suprapubic catheter Symptomatic bradycardia Functional capacity: independent ambulation Family History Family History Father Renal failure Family history of problems with anesthesia: No Surgical History History of Problems with Anesthesia: No Social History Social History Household Members: None Household Members Other:: tenant next door Housing: House Do you presently have visiting nurse or other home services: Yes (visiting nurses set up) Alcohol intake: former Patient Tobacco Use Status: Never used Tobacco Advance Directives Date on File: 11/20/21 service: No Current occupational status: disabled Meds Allergies Allergy/AdvReac Type Severity Reaction Status Date / Time allopurinol Allergy Rash Verified 11/20/21 11:41 Active Medications: Current Medications Acetaminophen (Acetaminophen 325 Mg Tablet) 650 mg PO Q6H PRN PRN Reason: Pain, Mild (Pain Scale 1-3) Last Admin: 01/17/22 01:01 Dose: 650 mg Documented by: Albuterol Sulfate (Albuterol Sulfate 90 Mcg 8 Gm Inhaler) 2 puff INHALE Q6H PRN PRN Reason: Wheezing Cyanocobalamin (Cyanocobalamin (Vitamin B-12) 1,000 Mcg Tablet) 1,000 mcg PO DAILY MARCOS Last Admin: 01/18/22 07:42 Dose: Not Given Documented by: Dextrose (Dextrose 50 % 25 Gm/50 Ml Syringe) 25 gm IVPUSH Q15M PRN; Protocol PRN Reason: per Hypoglycemia Standing Ord. Docusate Sodium (Docusate Sodium 100 Mg Capsule) 100 mg PO DAILY PRN PRN Reason: Constipation Duloxetine HCl (Duloxetine Hcl 20 Mg Capsule.Dr) 20 mg PO DAILY [facility] Last Admin: 01/18/22 07:42 Dose: Not Given Documented by: Epoetin Marvin (Epoetin Marvin 20,000 Unit/Ml Vial) 20,000 unit SUBCUT ONCE@1000 [facility] Stop: 01/20/22 10:01 Ergocalciferol (Ergocalciferol (Vitamin D2) 1,250 Mcg Capsule) 1,250 mcg PO SA [facility] Last Admin: 01/18/22 05:26 Dose: Not Given Documented by: Gabapentin (Gabapentin 100 Mg Capsule) 100 mg PO BID [facility] Last Admin: 01/18/22 07:43 Dose: Not Given Documented by: Glucose (Glucose Gel 15 Gm Gel..Gram.) 15 gm PO Q15M PRN; Protocol PRN Reason: per Hypoglycemia Standing Ord. Heparin Sodium (Porcine) (Heparin Sodium,Porcine 5,000 Unit/Ml Vial) 5,000 unit INTRACATH TUTHSA@1645 [facility] Last Admin: 01/18/22 05:26 Dose: Not Given Documented by: Insulin Human Lispro (Insulin Lispro 100 Unit/Ml 3 Ml Vial) 0 unit SUBCUT QIDACHS [facility]; Protocol Last Admin: 01/18/22 11:30 Dose: Not Given Documented by: Multivitamins/Vitamin C (Multivitamin Tablet) 1 tab PO DAILY [facility] Last Admin: 01/18/22 07:43 Dose: Not Given Documented by: Non-Formulary Medication (Febuxostat [Uloric]) 40 mg PO DAILY [facility] Nystatin (Nystatin Powder 15 Gm Bottle) 1 appl TOPICAL BID [facility]; Protocol Pharmacy Consult (Consult Rx Perform Med Rec) 1 each MISCELLANE ONCE PRN PRN Reason: Consult order Sevelamer Carbonate (Sevelamer Carbonate Tablet 800 Mg Tablet) 1,600 mg PO TID [facility] Last Admin: 01/18/22 07:43 Dose: Not Given Documented by: Sodium Chloride (0.9 % Sodium Chloride Flush 3 Ml Syringe) 3 ml IVFLUSH QSHIFT [facility] Last Admin: 01/18/22 07:42 Dose: 3 ml Documented by: Home Medications Medication Instructions Recorded Confirmed Last Taken Type acetaminophen 325 mg tablet 650 mg PO Q6H PRN 11/20/21 01/15/22 11/19/21 History albuterol sulfate 90 mcg/actuation 2 puff INHALATION Q6H PRN 11/20/21 01/15/22 11/19/21 History aerosol inhaler (ProAir HFA) apixaban 2.5 mg tablet (Eliquis) 2.5 mg PO BID 11/20/21 01/15/22 11/19/21 History cholecalciferol (vitamin D3) 1,250 1 cap PO SA 11/20/21 01/15/22 11/19/21 History mcg (50,000 unit) capsule cyanocobalamin (vitamin B-12) 1,000 mcg PO DAILY 11/20/21 01/15/22 11/19/21 History 1,000 mcg tablet duloxetine 20 mg capsule,delayed 20 mg PO DAILY 11/20/21 01/15/22 11/19/21 History release (Cymbalta) febuxostat 40 mg tablet (Uloric) 40 mg PO DAILY 11/20/21 01/15/22 11/19/21 History insulin lispro 100 unit/mL 1 sliding scale dose SUBCUT 11/20/21 01/15/22 11/19/21 History subcutaneous pen USEASDIRECTD sevelamer carbonate 800 mg tablet 1,600 mg PO TID 11/20/21 01/15/22 11/19/21 History amlodipine 2.5 mg tablet 1 tab PO DAILY 01/15/22 01/15/22 Unknown History gabapentin 100 mg capsule 1 tab PO BID 01/15/22 01/15/22 Unknown History vitamin B complex-vitamin C-folic 1 tab PO DAILY 01/15/22 01/15/22 Unknown History acid 0.8 mg tablet (Isaura-Gabrielle) Exam Exam Date and Time: January 18, 2022 1514 Height,Weight and Vital Signs: Height 5 ft 8 in Weight 88.1 kg Last Vital Signs Temp 98.6 F 01/18/22 14:45 Pulse 73 01/18/22 15:00 Resp 20 01/18/22 15:00 BP 107/62 01/18/22 14:45 Pulse Ox 99 01/18/22 15:00 Oxygen Flow Rate 2 01/15/22 14:17 Pertinent Lab Results Pertinent Lab Results: Laboratory Tests 01/15/22 01/15/22 01/15/22 14:41 14:41 14:41 WBC 12.8 H RBC 3.10 L Hgb 10.1 L Hct 32.5 L MCV 104.8 H MCH 32.6 MCHC 31.1 RDW 17.2 H Plt Count 266 MPV 9.1 L Immature Gran % (Auto) 0.5 H Neut % (Auto) 88.3 H Lymph % (Auto) 4.9 L Bowie % (Auto) 4.5 Eos % (Auto) 1.4 Baso % (Auto) 0.4 Lymph # (Auto) 0.6 L Bowie # (Auto) 0.6 Eos # (Auto) 0.2 Baso # (Auto) 0.1 Abs Immat Gran (auto) 0.06 H Absolute Neuts (auto) 11.3 H Absolute Nucleated RBC 0.000 Nucleated RBC % (auto) 0.0 PT INR APTT Sodium 139 Potassium 4.0 Chloride 100 Carbon Dioxide 26 Anion Gap 17 BUN 48 H Creatinine 5.36 H* Estim Creat Clear Calc 14.8 Estimated GFR 11 POC Glucose Random Glucose 126 H D Estimat Average Glucose Hemoglobin A1c % Lactic Acid Calcium 8.9 Magnesium 2.1 Total Bilirubin 0.4 AST 20 D ALT 10 Alkaline Phosphatase 81 Troponin I High Sens B-Natriuretic Peptide Total Protein 7.0 Albumin 3.0 L Urine Color Urine Appearance Urine pH Ur Specific [place] Urine Protein Urine Glucose (UA) Urine Ketones Urine Blood Urine Nitrite Ur Leukocyte Esterase Urine RBC Urine WBC Ur Squamous Epith Cells Urine Bacteria COVID-19 ([facility]) Negative COVID-19 Clin Com See Note 01/15/22 01/15/22 01/15/22 14:41 14:41 14:41 WBC RBC Hgb Hct MCV MCH MCHC RDW Plt Count MPV Immature Gran % (Auto) Neut % (Auto) Lymph % (Auto) Bowie % (Auto) Eos % (Auto) Baso % (Auto) Lymph # (Auto) Bowie # (Auto) Eos # (Auto) Baso # (Auto) Abs Immat Gran (auto) Absolute Neuts (auto) Absolute Nucleated RBC Nucleated RBC % (auto) PT INR APTT Sodium Potassium Chloride Carbon Dioxide Anion Gap BUN Creatinine Estim Creat Clear Calc Estimated GFR POC Glucose Random Glucose Estimat Average Glucose Hemoglobin A1c % Lactic Acid 1.2 Calcium Magnesium Total Bilirubin AST ALT Alkaline Phosphatase Troponin I High Sens 37.5 H D B-Natriuretic Peptide 823 H Total Protein Albumin Urine Color Urine Appearance Urine pH Ur Specific [place] Urine Protein Urine Glucose (UA) Urine Ketones Urine Blood Urine Nitrite Ur Leukocyte Esterase Urine RBC Urine WBC Ur Squamous Epith Cells Urine Bacteria COVID-19 ([facility]) COVID-19 Clin Com 01/15/22 01/15/22 01/15/22 16:36 18:24 18:58 WBC RBC Hgb Hct MCV MCH MCHC RDW Plt Count MPV Immature Gran % (Auto) Neut % (Auto) Lymph % (Auto) Bowie % (Auto) Eos % (Auto) Baso % (Auto) Lymph # (Auto) Bowie # (Auto) Eos # (Auto) Baso # (Auto) Abs Immat Gran (auto) Absolute Neuts (auto) Absolute Nucleated RBC Nucleated RBC % (auto) PT INR APTT Sodium Potassium Chloride Carbon Dioxide Anion Gap BUN Creatinine Estim Creat Clear Calc Estimated GFR POC Glucose 119 H Random Glucose Estimat Average Glucose 126 Hemoglobin A1c % 6.0 Lactic Acid Calcium Magnesium Total Bilirubin AST ALT Alkaline Phosphatase Troponin I High Sens B-Natriuretic Peptide Total Protein Albumin Urine Color BROWN A Urine Appearance CLOUDY Urine pH 6.5 Ur Specific [place] 1.020 Urine Protein 3+ H Urine Glucose (UA) NEG Urine Ketones NEG Urine Blood 3+ H Urine Nitrite POS H Ur Leukocyte Esterase 3+ H Urine RBC TNTC H Urine WBC TNTC H Ur Squamous Epith Cells NONE Urine Bacteria 2+ COVID-19 ([facility]) COVID-19 Clin Com 01/15/22 01/15/22 01/16/22 18:58 21:19 07:29 WBC RBC Hgb Hct MCV MCH MCHC RDW Plt Count MPV Immature Gran % (Auto) Neut % (Auto) Lymph % (Auto) Bowie % (Auto) Eos % (Auto) Baso % (Auto) Lymph # (Auto) Bowie # (Auto) Eos # (Auto) Baso # (Auto) Abs Immat Gran (auto) Absolute Neuts (auto) Absolute Nucleated RBC Nucleated RBC % (auto) PT INR APTT Sodium Potassium Chloride Carbon Dioxide Anion Gap BUN Creatinine Estim Creat Clear Calc Estimated GFR POC Glucose 164 H 131 H Random Glucose Estimat Average Glucose Hemoglobin A1c % Lactic Acid Calcium Magnesium Total Bilirubin AST ALT Alkaline Phosphatase Troponin I High Sens 55.6 H B-Natriuretic Peptide Total Protein Albumin Urine Color Urine Appearance Urine pH Ur Specific [place] Urine Protein Urine Glucose (UA) Urine Ketones Urine Blood Urine Nitrite Ur Leukocyte Esterase Urine RBC Urine WBC Ur Squamous Epith Cells Urine Bacteria COVID-19 ([facility]) COVID-19 Clin Com 01/16/22 01/16/22 01/16/22 12:06 13:01 13:01 WBC 10.8 RBC 2.82 L Hgb 9.2 L Hct 29.6 L MCV 105.0 H MCH 32.6 MCHC 31.1 RDW 17.3 H Plt Count 231 MPV 8.9 L Immature Gran % (Auto) Neut % (Auto) Lymph % (Auto) Bowie % (Auto) Eos % (Auto) Baso % (Auto) Lymph # (Auto) Bowie # (Auto) Eos # (Auto) Baso # (Auto) Abs Immat Gran (auto) Absolute Neuts (auto) Absolute Nucleated RBC 0.000 Nucleated RBC % (auto) 0.0 PT INR APTT Sodium 138 Potassium 4.8 Chloride 101 Carbon Dioxide 25 Anion Gap 17 BUN 68 H Creatinine 7.77 H* Estim Creat Clear Calc 10.2 Estimated GFR 7 POC Glucose 137 H Random Glucose 147 H Estimat Average Glucose Hemoglobin A1c % Lactic Acid Calcium 8.7 Magnesium Total Bilirubin AST ALT Alkaline Phosphatase Troponin I High Sens B-Natriuretic Peptide Total Protein Albumin Urine Color Urine Appearance Urine pH Ur Specific [place] Urine Protein Urine Glucose (UA) Urine Ketones Urine Blood Urine Nitrite Ur Leukocyte Esterase Urine RBC Urine WBC Ur Squamous Epith Cells Urine Bacteria COVID-19 ([facility]) COVID-19 Clin Com 01/16/22 01/17/22 01/17/22 16:25 07:55 07:55 WBC 10.7 RBC 2.55 L Hgb 8.4 L Hct 26.8 L MCV 105.1 H MCH 32.9 MCHC 31.3 RDW 17.3 H Plt Count 226 MPV 9.4 Immature Gran % (Auto) Neut % (Auto) Lymph % (Auto) Bowie % (Auto) Eos % (Auto) Baso % (Auto) Lymph # (Auto) Bowie # (Auto) Eos # (Auto) Baso # (Auto) Abs Immat Gran (auto) Absolute Neuts (auto) Absolute Nucleated RBC 0.000 Nucleated RBC % (auto) 0.0 PT INR APTT Sodium 136 Potassium 4.5 Chloride 100 Carbon Dioxide 25 Anion Gap 16 BUN 66 H Creatinine 7.07 H* Estim Creat Clear Calc 11.2 Estimated GFR 8 POC Glucose 128 H Random Glucose 121 H Estimat Average Glucose Hemoglobin A1c % Lactic Acid Calcium 8.7 Magnesium 2.1 Total Bilirubin AST ALT Alkaline Phosphatase Troponin I High Sens B-Natriuretic Peptide Total Protein Albumin Urine Color Urine Appearance Urine pH Ur Specific [place] Urine Protein Urine Glucose (UA) Urine Ketones Urine Blood Urine Nitrite Ur Leukocyte Esterase Urine RBC Urine WBC Ur Squamous Epith Cells Urine Bacteria COVID-19 ([facility]) COVID-19 Clin Com 01/17/22 01/18/22 01/18/22 22:04 06:53 06:53 WBC 9.4 RBC 2.79 L Hgb 9.2 L Hct 29.0 L MCV 103.9 H MCH 33.0 MCHC 31.7 RDW 17.1 H Plt Count 219 MPV 9.5 Immature Gran % (Auto) 0.4 Neut % (Auto) 78.2 H Lymph % (Auto) 5.6 L Bowie % (Auto) 11.3 H Eos % (Auto) 4.0 Baso % (Auto) 0.5 Lymph # (Auto) 0.5 L Bowie # (Auto) 1.1 Eos # (Auto) 0.4 Baso # (Auto) 0.1 Abs Immat Gran (auto) 0.04 H Absolute Neuts (auto) 7.4 Absolute Nucleated RBC 0.000 Nucleated RBC % (auto) 0.0 PT 16.0 H INR 1.4 H APTT 35.7 Sodium Potassium Chloride Carbon Dioxide Anion Gap BUN Creatinine Estim Creat Clear Calc Estimated GFR POC Glucose 99 Random Glucose Estimat Average Glucose Hemoglobin A1c % Lactic Acid Calcium Magnesium Total Bilirubin AST ALT Alkaline Phosphatase Troponin I High Sens B-Natriuretic Peptide Total Protein Albumin Urine Color Urine Appearance Urine pH Ur Specific [place] Urine Protein Urine Glucose (UA) Urine Ketones Urine Blood Urine Nitrite Ur Leukocyte Esterase Urine RBC Urine WBC Ur Squamous Epith Cells Urine Bacteria COVID-19 ([facility]) COVID-19 Clin Com 01/18/22 01/18/22 01/18/22 06:53 07:00 10:47 WBC RBC Hgb Hct MCV MCH MCHC RDW Plt Count MPV Immature Gran % (Auto) Neut % (Auto) Lymph % (Auto) Bowie % (Auto) Eos % (Auto) Baso % (Auto) Lymph # (Auto) Bowie # (Auto) Eos # (Auto) Baso # (Auto) Abs Immat Gran (auto) Absolute Neuts (auto) Absolute Nucleated RBC Nucleated RBC % (auto) PT INR APTT Sodium 133 L Potassium 4.4 Chloride 98 Carbon Dioxide 24 Anion Gap 15 BUN 44 H Creatinine 5.22 H* Estim Creat Clear Calc 15.4 Estimated GFR 11 POC Glucose 119 H 114 Random Glucose 119 H Estimat Average Glucose Hemoglobin A1c % Lactic Acid Calcium 8.8 Magnesium Total Bilirubin AST ALT Alkaline Phosphatase Troponin I High Sens B-Natriuretic Peptide Total Protein Albumin Urine Color Urine Appearance Urine pH Ur Specific [place] Urine Protein Urine Glucose (UA) Urine Ketones Urine Blood Urine Nitrite Ur Leukocyte Esterase Urine RBC Urine WBC Ur Squamous Epith Cells Urine Bacteria COVID-19 ([facility]) COVID-19 Clin Com Airway Mallampati Class: II TM Dist: >3cm Neck ROM: Full Assessment and Plan Assessment Anesthesia Assessment: Anesthesia Plan Discussed Final Anesthetic Review Family History of Problems with Anesthesia: No History of Problems with Anesthesia: No NPO: Yes ASA Class: IV and Emergency Final Preanesthetic Review: Meds/Allgs Chart Reviewed, Consent Obtained/Reviewed and Anes Risks/Benef Reviewed Patient Risk: High Procedure Risk: Low Anesthetic Plan Anesthetic Plan: MAC: Disposition: Standard PACU
--- NOTE | 2022-01-18 15:41 | PM.CCN ---
Critical Care Event Note Summary Date of Service: 01/18/22 Code activated: No Narrative: This case had a high probability of a clinically significant, sudden, or life threatening deterioration of this patient's condition which required my full and direct attention, intervention and personal management. Critical Care Time (minutes): 30 Comment: Note to Dr. Zendejas the atrial mechanism was documented by intra atrial interrogation to be atrial fibrillation a blind atrial lead was placed and this DDDR pacemaker is mode switched with a base rate of 70 and rate response is activated and you have the option of choosing anti rhythmic therapy leading up to possible cardioversion
[2022-01-18 15:52] LABS: Glucose, Whole Blood 115 mg/dL (60-115)
[2022-01-18] MEDS: Sevelamer Carbonate Tablet 800 MG TABLET 1600 MG PO ×2 (16:29→21:22)
[2022-01-18] MEDS: Nystatin Powder 15 GM BOTTLE 1 APPL TOPICAL ×2 (16:34→21:23)
[2022-01-18 19:43] LABS: Glucose, Whole Blood 172 mg/dL (60-115)
[2022-01-18] MEDS: Insulin Lispro 100 UNIT/ML 3 ML VIAL SUBCUT (21:22)
[2022-01-18] MEDS: Gabapentin 100 MG CAPSULE PO (21:23)
[2022-01-19] VITALS (7 sets, daily range): BP systolic 104–134; BP diastolic 63–73; PULSE 64–73; RESP 16–20; TEMP 36.3–36.9; O2SAT 93–96; BMI 29.5
[2022-01-19 06:11] LABS: Hemoglobin 8.5 g/dl (14.0-18.0); Mean Corpuscular HGB Conc 31.5 g/dl (31.0-36.0); Mean Corpuscular Hemoglobin 32.7 pg (27.0-33.0); Mean Corpuscular Volume 103.8 fL (80.0-98.0); Mean Platelet Volume 9.5 fL (9.4-12.4); Platelet Count 215 X10*3/uL (160-400); Red Cell Distribution Width 16.5 % (11.0-16.0); White Blood Count 9.9 X10*3/uL (4.8-10.8)
[2022-01-19 06:31] LABS: Glucose, Whole Blood 216 mg/dL (60-115)
[2022-01-19 06:32] LABS: Glucose, Whole Blood 202 mg/dL (60-115)
[2022-01-19 06:32] LABS: Glucose, Whole Blood 112 mg/dL (60-115)
[2022-01-19 06:38] LABS: Anion Gap 16 (12-20); Blood Urea Nitrogen 63 mg/dL (9-16); Calcium 9.2 mg/dL (8.4-10.2); Carbon Dioxide 25 mmol/L (22-29); Chloride 102 mmol/L (96-108); Creatinine Clr Calc Pharmacy 11.8; Estimated Glomerular Filt Rate 8; Glucose Random 224 mg/dL (60-115); Potassium 5.3 mmol/L (3.3-5.1); Sodium 138 mmol/L (135-145)
[2022-01-19 07:56] LABS: Glucose, Whole Blood 184 mg/dL (60-115)
--- NOTE | 2022-01-19 08:30 | P.CDIC_ITS ---
CDI Concurrent Query Documentation Clarification: PHYSICIAN'S DOCUMENTATION REQUEST Date of Query: 01/19/22829 Patient Name: Jarrett Mnotoya Admit Date: 01/15/22 Dear Doctor, A review of the medical record indicates additional documentation may be needed. Please review below and update the documentation accordingly. Clinical Indicators: Risk Factors/Clinical Indicators/Treatments Symptomatic bradycardia per Cardiology PMH: CHF BNP 823 CXR: right pleural effusion ECHO: pEF, grade 2 diastolic dysfunction Per ED: CHF Please provide further specificity regarding the most likely type and acuity of CHF you are evaluating, treating, or monitoring. Examples include: Type: * Systolic * Diastolic * Combined Systolic/Diastolic * Other ? please specify * Unable to determine Acuity: * Acute * Chronic * Acute on chronic * Unable to determine Use of terms such as suspected, likely, concern for, or probable (associated with a specific diagnosis that is being evaluated, monitored, or treated as if it exists) are acceptable and can be coded in the inpatient setting, when documented at the time of discharge. Thank you, Hina Wong RN Extension: [phone] Please use your independent medical judgment in providing your response. THIS QUERY IS PART OF THE PERMANENT MEDICAL RECORD Provider Response: Acute-Chronic Diastolic CHF (chronic )
--- NOTE | 2022-01-19 08:39 | P.CDIC_ITS ---
CDI Concurrent Query Documentation Clarification: PHYSICIAN'S DOCUMENTATION REQUEST Date of Query: 01/19/22 0839 Patient Name: Jarrett Montoya Admit Date: 01/15/22 Dear Doctor, A review of the medical record indicates additional documentation may be indicated. Please review below and update the documentation accordingly. Clinical Indicators: Risk Factors/Clinical Indicators/Treatments Per MD progress note 01/18/22: open wound coccyx Per nurses note 01/18/22: pressure coccyx Triad and foam Unstaged pending wound consult Based on the above, could you please provide, in the Progress Notes, further information regarding the ulcer/wound: * Type (etiology) of ulcer/wound: * Diabetic ulcer * Venous stasis ulcer * Arterial (ischemic) ulcer * Pressure (decubitus) ulcer * Traumatic wound * Non-healing surgical wound * Other * Unable to determine * For a non-pressure ulcer, please indicate the depth/severity: * Limited to the breakdown of skin * With fat layer exposed * With necrosis of muscle * With necrosis of bone * Other * Unable to determine * If a pressure ulcer, please also include the stage* of the ulcer: * Stage 1 - Skin intact, non-blanchable redness * Stage 2 - Partial thickness loss of dermis, includes intact or open blister * Stage 3 - Full thickness tissue not including bone, tendon, or muscle * Stage 4 - Full thickness tissue loss, including exposed bones, tendon, or muscle * Unstageable - Full thickness tissue loss in which the base of the ulcer is covered by slough (yellow, tilley, francis, green or brown) and/or eschar (tilley, brown, or black) in the wound bed. * Suspected deep tissue injury - Purple or maroon localized area of discolored intact skin or blood-filled blister due to damage of underlying soft tissues from pressure and/or shear. The area may be preceded by tissue that is painful, firm, mushy, boggy, warmer, or cooler as compare to adjacent tissue. * Unable to determine *Source: National Pressure Ulcer Advisory Panel (NPUAP) Use of terms such as suspected, likely, concern for, or probable (associated with a specific diagnosis that is being evaluated, monitored, or treated as if it exists) are acceptable and can be coded in the inpatient setting, when documented at the time of discharge. Thank you, Hina Wong RN Extension: [phone] Please use your independent medical judgment in providing your response. THIS QUERY IS PART OF THE PERMANENT MEDICAL RECORD Provider Response: Other (Stage II coccyx ulcer, chronic ) Other Diagnosis: Stage II coccyx ulcer
--- NOTE | 2022-01-19 08:39 | MHC.CDI.CONC ---
CDI Concurrent Query Documentation Clarification: PHYSICIAN'S DOCUMENTATION REQUEST Date of Query: 01/19/22 0839 Patient Name: Jarrett Montoya Admit Date: 01/15/22 Dear Doctor, A review of the medical record indicates additional documentation may be indicated. Please review below and update the documentation accordingly. Clinical Indicators: Risk Factors/Clinical Indicators/Treatments Per MD progress note 01/18/22: open wound coccyx Per nurses note 01/18/22: pressure coccyx Triad and foam Unstaged pending wound consult Based on the above, could you please provide, in the Progress Notes, further information regarding the ulcer/wound: Type (etiology) of ulcer/wound: Diabetic ulcer Venous stasis ulcer Arterial (ischemic) ulcer Pressure (decubitus) ulcer Traumatic wound Non-healing surgical wound Other Unable to determine For a non-pressure ulcer, please indicate the depth/severity: Limited to the breakdown of skin With fat layer exposed With necrosis of muscle With necrosis of bone Other Unable to determine If a pressure ulcer, please also include the stage* of the ulcer: Stage 1 - Skin intact, non-blanchable redness Stage 2 - Partial thickness loss of dermis, includes intact or open blister Stage 3 - Full thickness tissue not including bone, tendon, or muscle Stage 4 - Full thickness tissue loss, including exposed bones, tendon, or muscle Unstageable - Full thickness tissue loss in which the base of the ulcer is covered by slough (yellow, tilley, francis, green or brown) and/or eschar (tilley, brown, or black) in the wound bed. Suspected deep tissue injury - Purple or maroon localized area of discolored intact skin or blood-filled blister due to damage of underlying soft tissues from pressure and/or shear. The area may be preceded by tissue that is painful, firm, mushy, boggy, warmer, or cooler as compare to adjacent tissue. Unable to determine *Source: National Pressure Ulcer Advisory Panel (NPUAP) Use of terms such as suspected, likely, concern for, or probable (associated with a specific diagnosis that is being evaluated, monitored, or treated as if it exists) are acceptable and can be coded in the inpatient setting, when documented at the time of discharge. Thank you, Hina Wong RN Extension: [phone] Please use your independent medical judgment in providing your response. THIS QUERY IS PART OF THE PERMANENT MEDICAL RECORD Provider Response: Other (Stage II coccyx ulcer, chronic ) Other Diagnosis: Stage II coccyx ulcer
[2022-01-19] MEDS: Gabapentin 100 MG CAPSULE PO ×2 (08:58→21:35)
[2022-01-19] MEDS: Cyanocobalamin (Vitamin B-12) 1,000 MCG TABLET 1000 MCG PO (08:58)
[2022-01-19] MEDS: Apixaban 2.5 MG TABLET PO ×2 (08:58→21:36)
[2022-01-19] MEDS: Multivitamin TABLET 1 TAB PO (08:58)
[2022-01-19] MEDS: DULoxetine HCl 20 MG CAPSULE.DR PO (08:58)
[2022-01-19] MEDS: Insulin Lispro 100 UNIT/ML 3 ML VIAL SUBCUT ×4 (08:58→21:36)
[2022-01-19] MEDS: Sevelamer Carbonate Tablet 800 MG TABLET 1600 MG PO ×3 (08:58→21:36)
[2022-01-19] MEDS: 0.9 % Sodium Chloride Flush 3 ML SYRINGE IVFLUSH ×3 (08:59→21:36)
[2022-01-19] MEDS: Nystatin Powder 15 GM BOTTLE 1 APPL TOPICAL ×2 (08:59→21:41)
--- NOTE | 2022-01-19 10:13 | PM.PNNEP ---
Subjective Subjective Date of Service: 01/19/22 Interval history: seen and examined this morning denies shortness of breath, chest pain, dizziness at this time plan for pacemaker today, patient in agreement Physical Exam Vital Signs: Vital Signs: Last Vital Signs Temp 97.4 F 01/19/22 08:00 Pulse 64 01/19/22 08:40 Resp 20 01/19/22 08:00 BP 104/63 01/19/22 08:40 Pulse Ox 95 01/19/22 08:40 Oxygen Flow Rate 2 01/15/22 14:17 BMI result Body Mass Index 29.5 Const: General: comfortable and no acute distress HENMT: Head: Yes normocephalic Eyes: EOM: EOMs intact bilaterally Neck: Neck: Yes supple Chest: Other: Permcath right side of chest wall Resp: Auscultation: diminished lung sounds Cardio: Rate: regular rate GI: Palpation (GI): Soft to palpation : Other: Supra pubic catheter present Neuro: General: moves all extremities Objective Data Labs CBC & Chem 7: 01/19/22 05:35 01/19/22 05:35 Labs: Laboratory Results - last 24 hr 01/16/22 01/17/22 01/17/22 21:22 13:04 17:43 WBC RBC Hgb Hct MCV MCH MCHC RDW Plt Count MPV Absolute Nucleated RBC Nucleated RBC % (auto) Sodium Potassium Chloride Carbon Dioxide Anion Gap BUN Creatinine Estim Creat Clear Calc Estimated GFR POC Glucose 216 H 112 202 H Random Glucose Calcium 01/18/22 01/18/22 01/18/22 10:47 15:29 19:27 WBC RBC Hgb Hct MCV MCH MCHC RDW Plt Count MPV Absolute Nucleated RBC Nucleated RBC % (auto) Sodium Potassium Chloride Carbon Dioxide Anion Gap BUN Creatinine Estim Creat Clear Calc Estimated GFR POC Glucose 114 115 172 H Random Glucose Calcium 01/19/22 01/19/22 01/19/22 05:35 05:35 07:41 WBC 9.9 RBC 2.60 L Hgb 8.5 L Hct 27.0 L MCV 103.8 H MCH 32.7 MCHC 31.5 RDW 16.5 H Plt Count 215 MPV 9.5 Absolute Nucleated RBC 0.000 Nucleated RBC % (auto) 0.0 Sodium 138 Potassium 5.3 H D Chloride 102 Carbon Dioxide 25 Anion Gap 16 BUN 63 H Creatinine 6.77 H* Estim Creat Clear Calc 11.8 Estimated GFR 8 POC Glucose 184 H Random Glucose 224 H D Calcium 9.2 Microbiology Microbiology Results: Microbiology 01/15/22 14:48 Blood - Venous Blood Culture - Preliminary No growth after 48 hours. 01/15/22 14:41 Blood - Venous Blood Culture - Preliminary No growth after 48 hours. 01/15/22 16:47 Urine clean catch - Urine francis top Urine Culture - Final Procedures Date of Service Date of Service: 01/19/22 Assessment & Plan Assessment and plan (1) ESRD on dialysis: Status: Acute Assessment and Plan: Usually gets HD on TTS ( [facility]) Renal Diet; Phos binders with meals Antibiotics dosed for GFR May need Right Pl effusion drained Pacemaker Procrit 1999) TTS( ordered) Shall continue to closely follow up Time Spent With Patient Time: Total time spent is greater than 50% in coordination of care (as documented) at patient's floor/unit and/or counseling patient: Time with patient: 15 - 24 minutes Progress Note: Quality Stroke Does the patient have a stroke diagnosis?: No
[2022-01-19 11:37] LABS: Glucose, Whole Blood 179 mg/dL (60-115)
--- NOTE | 2022-01-19 11:48 | MHC.CLN ---
RE: CONSULT PT WITH INCREASED NUTRITION NEEDS R/T PRESSURE AREA AND HD DIET RX: 2GM NA LOW K+, LOW PHOS-WILL START 2200DM DIET R/T DM RECOMMEND ADDING ENSURE CLEAR TID TO INCREASE KCALS AND PROMOTE WOUND HEALING SUPP IS RENAL FRIENDLY AND PROVIDES 720KCALS, 24G PROTEIN MONITOR PO INTAKE CLOSELY SEE ALSO FULL CLINICAL NUTRITION ASSESSMENT
--- NOTE | 2022-01-19 12:31 | PM.PNCARD ---
Subjective Subjective Date of Service: 01/19/22 <SANDOR Garcia - Last Filed: 01/19/22 12:50> 01/19/22 <Gonzalo Christian MD - Last Filed: 01/19/22 17:08> Principal diagnosis: junctional bradycardia, s/p pacemaker <SANDOR Garcia - Last Filed: 01/19/22 12:50> Interval history: Cardiology follow up post pacemaker placement. Seen at 1115. Today he report that he is feeling well. He denies any pain from the pacemaker site. No chest pains, sob, palpitations. Was able to walk to bathroom and into hallway and reports feeling much better then he had been. Planning for dialysis tomorrow. <SANDOR Garcia Last Filed: 01/19/22 12:50> Review of Systems Review of Systems as above <SANDOR Garcia - Last Filed: 01/19/22 12:50> Yes all other systems are reviewed and are negative <SANDOR Garcia - Last Filed: 01/19/22 12:50> Physical Exam Vital Signs: Last Vital Signs Temp 98.1 F 01/19/22 11:18 Pulse 69 01/19/22 11:18 Resp 20 01/19/22 11:18 BP 134/72 01/19/22 11:18 Pulse Ox 96 01/19/22 11:18 Oxygen Flow Rate 2 01/15/22 14:17 BMI result Body Mass Index 29.5 <SANDOR Garcia - Last Filed: 01/19/22 12:50> Const General: cooperative, no acute distress, alert and awake <SANDOR Garcia - Last Filed: 01/19/22 12:50> Orientation/consciousness: patient oriented x3 <SANDOR Garcia Last Filed: 01/19/22 12:50> Neck Neck: Yes normal visual inspection and Yes no JVD <SANDOR Garcia Last Filed: 01/19/22 12:50> Chest Other: pacemaker site left upper chest with tegaderm and gauze dressing in place. Dialysis catheter right upper chest with clear tegaderm dressing <DANNI GarciaC - Last Filed: 01/19/22 12:50> Resp Effort & Inspection: normal respiratory effort, able to speak in complete sentences and not labored <DANNI GarciaC - Last Filed: 01/19/22 12:50> Auscultation: clear to auscultation bilaterally, no crackles, no rales, no rhonchi and no wheezes <Wendy Martini DANNI - Last Filed: 01/19/22 12:50> Cardio Palpation: normal PMI <Wendy Martini NPC - Last Filed: 01/19/22 12:50> Rate: regular rate <DANNI Garcia - Last Filed: 01/19/22 12:50> Rhythm: regular rhythm <DANNI Garcia - Last Filed: 01/19/22 12:50> Heart sounds: S1 normal heart sound present and S2 normal heart sound present <Wendy Martini DANNI - Last Filed: 01/19/22 12:50> Peripheral pulses: Peripheral pulses 2+ throughout <DANNI GarciaC - Last Filed: 01/19/22 12:50> GI Inspection: Yes normal to inspection <DANNI Garcia - Last Filed: 01/19/22 12:50> Neuro General: patient oriented x3 <Wendy Martini DANNIC - Last Filed: 01/19/22 12:50> Extrem General: Yes normal to inspection and No edema <Wendy MartiniFAHEEMHoraceC - Last Filed: 01/19/22 12:50> Objective Labs and Meds Result diagrams: : 01/19/22 05:35 01/19/22 05:35 <Wendy Martini CONCRETE PUMP OPERATOR HELPER-C - Last Filed: 01/19/22 12:50> Lab results: Laboratory Results - last 24 hr 01/16/22 01/17/22 01/17/22 21:22 13:04 17:43 WBC RBC Hgb Hct MCV MCH MCHC RDW Plt Count MPV Absolute Nucleated RBC Nucleated RBC % (auto) Sodium Potassium Chloride Carbon Dioxide Anion Gap BUN Creatinine Estim Creat Clear Calc Estimated GFR POC Glucose 216 H 112 202 H Random Glucose Calcium 01/18/22 01/18/22 01/19/22 15:29 19:27 05:35 WBC 9.9 RBC 2.60 L Hgb 8.5 L Hct 27.0 L MCV 103.8 H MCH 32.7 MCHC 31.5 RDW 16.5 H Plt Count 215 MPV 9.5 Absolute Nucleated RBC 0.000 Nucleated RBC % (auto) 0.0 Sodium Potassium Chloride Carbon Dioxide Anion Gap BUN Creatinine Estim Creat Clear Calc Estimated GFR POC Glucose 115 172 H Random Glucose Calcium 01/19/22 01/19/22 01/19/22 05:35 07:41 11:17 WBC RBC Hgb Hct MCV MCH MCHC RDW Plt Count MPV Absolute Nucleated RBC Nucleated RBC % (auto) Sodium 138 Potassium 5.3 H D Chloride 102 Carbon Dioxide 25 Anion Gap 16 BUN 63 H Creatinine 6.77 H* Estim Creat Clear Calc 11.8 Estimated GFR 8 POC Glucose 184 H 179 H Random Glucose 224 H D Calcium 9.2 <SANDOR Garcia - Last Filed: 01/19/22 12:50> Imaging Radiologist's impression: Impressions Guidance Fluoroscopy 01/18/22 14:05 FINDINGS AND IMPRESSION: A limited single view from the procedure is saved. The tip of the dialysis catheter project over the right atrium. Interval placement of dual chamber cardiac pacemaker. The visualized leads terminate over the right atrium and apex of right ventricle. Chest X-Ray 01/18/22 15:05 IMPRESSION: New pacer electrodes in right atrium and right ventricle. Moderate right pleural effusion is stable. <SANDOR Garcia - Last Filed: 01/19/22 12:50> Progress Note: A&P Assessment and plan (1) Junctional bradycardia: Status: Acute <SANDOR Garcia - Last Filed: 01/19/22 12:50> Assessment and Plan: Admit with bradycardia, hypotension, brief syncopal event at dialysis. EKGs showed afib with slow ventricular response. Tele was showing junctional blayne, rates 50s. He did undergo a dual chamber pacemaker placement with Dr Lawrence yesterday. CXR post device showed pacer leads in RA and RV, stable moderate right pleural effusion. Interrogation this am by ST Lm Rep indicates device is functioning normally. Tele shows V paced rhythm with isolated PVCs. Site without swelling, bleeding. Pt denies discomfort. Reports he was feeling less sob when walking to BR and into hallway this am. CXR to reconfirm lead placement is pending. He has remote monitor device in his room - He has been instructed to plug in at bedside at home. We will arrange for a 2 week wound check in our office and a 6 week device check. <Wendy Roberto SANDOR Martini - Last Filed: 01/19/22 12:50> (2) Symptomatic bradycardia: Status: Acute <Wendy TranSANDOR tracy - Last Filed: 01/19/22 12:50> (3) Atrial fibrillation with slow ventricular response: Status: Acute <Wendy TranSANDOR tracy - Last Filed: 01/19/22 12:50> Assessment and Plan: Hx of afib. Slow ventricular response on EKG. V pacing at present, could have underlying afib at present. Echo shows EF 54%, mod increase RV size, mild MR, TR, pulm HTN. No requiring rate slowing meds. He is on Eliquis 2.5 mg bid - dialysis pt. No bleeding issues. <Wendy Roberto SANDOR Martini - Last Filed: 01/19/22 12:50> (4) Status post placement of cardiac pacemaker: Status: Acute <Wendy TranSANDOR tracy - Last Filed: 01/19/22 12:50> Assessment and Plan: as above <Wendy Roberto SANDOR Martini - Last Filed: 01/19/22 12:50> (5) ESRD on dialysis: Status: Acute <Wendy Roberto SANDOR Martini - Last Filed: 01/19/22 12:50> Assessment and Plan: Follows with nephrology. Has dialysis Sat, Tues and Th. <Wendy Roberto SANDOR Martini - Last Filed: 01/19/22 12:50> (6) CHF (congestive heart failure): Status: Acute <Wendy TranSANDOR tracy - Last Filed: 01/19/22 12:50> Assessment and Plan: Right pleural effusion on CXR. Not new, seen on CXR in Dec as well. CXR being done today. Yesterday CXR reported right Mod effusion, stable. Pt denies feeling sob. BNP was elevated on admit. Now that PPM in place and may gradually improve <SANDOR Garcia - Last Filed: 01/19/22 12:50> Plan Patient seen examined at bedside. Status post pacemaker placement for symptomatic bradycardia. Device interrogation and chest x-ray did not show any concerning issues. Clinically stable and has no symptoms right now. Can be discharged home and follow up with Dr. Zendejas. Thank you for allowing me to participate in the care of your patient. Please feel free to contact me if you have any questions. <Gonzalo Christina MD - Last Filed: 01/19/22 17:08> Fall Risk Details Current Medications: Current Medications Acetaminophen (Acetaminophen 325 Mg Tablet) 650 mg PO Q6H PRN PRN Reason: Pain, Mild (Pain Scale 1-3) Last Admin: 01/17/22 01:01 Dose: 650 mg Documented by: Albuterol Sulfate (Albuterol Sulfate 90 Mcg 8 Gm Inhaler) 2 puff INHALE Q6H PRN PRN Reason: Wheezing Apixaban (Apixaban 2.5 Mg Tablet) 2.5 mg PO BID [facility] Last Admin: 01/19/22 08:58 Dose: 2.5 mg Documented by: Cyanocobalamin (Cyanocobalamin (Vitamin B-12) 1,000 Mcg Tablet) 1,000 mcg PO DAILY [facility] Last Admin: 01/19/22 08:58 Dose: 1,000 mcg Documented by: Dextrose (Dextrose 50 % 25 Gm/50 Ml Syringe) 25 gm IVPUSH Q15M PRN; Protocol PRN Reason: per Hypoglycemia Standing Ord. Docusate Sodium (Docusate Sodium 100 Mg Capsule) 100 mg PO DAILY PRN PRN Reason: Constipation Duloxetine HCl (Duloxetine Hcl 20 Mg Capsule.) 20 mg PO DAILY [facility] Last Admin: 01/19/22 08:58 Dose: 20 mg Documented by: Epoetin Marvin (Epoetin Marvin 20,000 Unit/Ml Vial) 20,000 unit SUBCUT ONCE@1000 [facility] Stop: 01/20/22 10:01 Ergocalciferol (Ergocalciferol (Vitamin D2) 1,250 Mcg Capsule) 1,250 mcg PO SA [facility] Last Admin: 01/18/22 05:26 Dose: Not Given Documented by: Gabapentin (Gabapentin 100 Mg Capsule) 100 mg PO BID [facility] Last Admin: 01/19/22 08:58 Dose: 100 mg Documented by: Glucose (Glucose Gel 15 Gm Gel..Gram.) 15 gm PO Q15M PRN; Protocol PRN Reason: per Hypoglycemia Standing Ord. Heparin Sodium (Porcine) (Heparin Sodium,Porcine 5,000 Unit/Ml Vial) 5,000 unit INTRACATH SALOA@1645 [facility] Last Admin: 01/18/22 05:26 Dose: Not Given Documented by: Insulin Human Lispro (Insulin Lispro 100 Unit/Ml 3 Ml Vial) 0 unit SUBCUT QIDACHS [facility]; Protocol Last Admin: 01/19/22 08:58 Dose: 2 unit Documented by: Multivitamins/Vitamin C (Multivitamin Tablet) 1 tab PO DAILY [facility] Last Admin: 01/19/22 08:58 Dose: 1 tab Documented by: Non-Formulary Medication (Febuxostat [Uloric]) 40 mg PO DAILY [facility] Nystatin (Nystatin Powder 15 Gm Bottle) 1 appl TOPICAL BID [facility]; Protocol Last Admin: 01/19/22 08:59 Dose: 1 appl Documented by: Pharmacy Consult (Consult Rx Perform Med Rec) 1 each MISCELLANE ONCE PRN PRN Reason: Consult order Sevelamer Carbonate (Sevelamer Carbonate Tablet 800 Mg Tablet) 1,600 mg PO TID [facility] Last Admin: 01/19/22 08:58 Dose: 1,600 mg Documented by: Sodium Chloride (0.9 % Sodium Chloride Flush 3 Ml Syringe) 3 ml IVFLUSH QSHIFT [facility] Last Admin: 01/19/22 08:59 Dose: 3 ml Documented by: <SANDOR Garcia - Last Filed: 01/19/22 12:50> Time Spent With Patient Time: Total time spent is greater than 50% in coordination of care (as documented) at patient's floor/unit and/or counseling patient: <SANDOR Garcia - Last Filed: 01/19/22 12:50> Time with patient: 15 - 24 minutes <SANDOR Garcia - Last Filed: 01/19/22 12:50> Progress Note: Quality Stroke Does the patient have a stroke diagnosis?: No <SANDOR Garcia - Last Filed: 01/19/22 12:50> Procedures Date of Service Date of Service: 01/19/22 <SANDOR Garcia - Last Filed: 01/19/22 12:50>
--- NOTE | 2022-01-19 13:47 | MHC.CM.PN ---
New Pacemaker placed 01/18/22; home continue HD and new VNA is the goal and CM will follow.
--- NOTE | 2022-01-19 14:50 | HO.POSTANES ---
Post Anesthesia Evaluation Post Anesthesia Evaluation Vital Signs: Vital Signs Temp Pulse Resp BP Pulse Ox 01/19/22 11:18 98.1 F 69 20 134/72 96 01/19/22 08:40 64 104/63 95 01/19/22 08:00 97.4 F 64 20 104/63 95 01/19/22 04:00 98.4 F 68 20 115/63 94 Anesthesia: Monitored Mental Status: Awake Pain Control: Satisfactory Nausea/Vomiting: None Hydration: Adequate Anesthesia-Related Issues: No Anes. Related Issues
--- NOTE | 2022-01-19 14:56 | P.DS_ITS ---
DS: Providers Provider Date of Service: 01/19/22 Date of admission: 01/15/22 17:57 Primary care physician: Biju Redd MD Consults: 01/15/22 17:57 Consult to Cardiology Routine Consulting Provider: Sivakumar Zendejas Reason for consultation: syncope Has provider been notified: No Consult to Nephrology Routine Consulting Provider: Satya Fritz Reason for consultation: ESRD on HD Has provider been notified: No 01/15/22 18:13 Consult to Infectious Diseases Routine Consulting Provider: Abigail Peraza Reason for consultation: UTI; h/o MDR pseudomonas; chronic suprapubic cath Has provider been notified: No Attending physician on discharge: Kermit Campbell Discharging clinician: Sherron East DS: Diagnosis Discharge Diagnosis (1) Junctional bradycardia: Status: Acute (2) Atrial fibrillation with slow ventricular response: Status: Acute (3) Status post placement of cardiac pacemaker: Status: Acute (4) ESRD on dialysis: Status: Acute DS: Summary Hospital Course Hospital Course: Syncope secondary to bradycardia and hypotension at dialysis. Heart rate as low as 30s? No evidence of hypotension since admission. echo with preserved EF, grade II diastolic dysfunction, mild MR, TR, mild pulmonary hypertension. Junctional bradycardia noted. Dual chamber pacemaker placed by Dr. Lawrence on 01/18/22. Placement of leads confirmed on CXR and reconfirmed today. Follow up with cardiology in 2 weeks for wound check and 6 weeks for device check. Chronic atrial fibrillation with slow ventricular response, Heart rate as low as 30s.? Patient reports chronic bradycardia with heart rate in the 30s at times. Not on any rate lowering medication Radiation cystitis/Uretheral stricture/ Urinary retention, s/p suprapubic catheter (changed as outpatient on 01/13) followed by Dr. Curiel, suprapubic cat heter fell out and was replaced yesterday with 18fr with 10cc balloon ESRD on HD ,, . HD 01/17 small open coccyx wound and chronic skin changes. present on admission, continue local wound care, frequent position changes Time Spent with Patient Time attestation: Total time spent providing and/or coordinating discharge services: Discharge coordination time: Greater than 30 minutes Quality: Stroke Does the patient have a stroke diagnosis?: No Physical Exam Vital Signs: Vital Signs: Last Vital Signs Temp 98.1 F 01/19/22 11:18 Pulse 69 02/28/22 11:18 Resp 20 01/19/22 11:18 BP 134/72 01/19/22 11:18 Pulse Ox 96 01/19/22 11:18 Oxygen Flow Rate 2 01/15/22 14:17 BMI result Body Mass Index 29.5 Appearing in no acute distress head is normocephalic atraumatic eyes pupils are PERRLA sclera is anicteric mouth throat mucous membranes are intact and moist neck is supple no lymphadenopathy, no JVD noted lung sounds are clear to auscultation heart regular rate rhythm, clear S1, S2 positive bowel sounds, abdomen is soft, nontender neuro patient is alert x3, no focal deficits Small stage II coccyx wound with chronic skin discoloration, no drainage, odor or bleeding Pacemaker incision clean and dry, no infection noted DS: Data Data Completed and Pending Completed studies during hospitalization [Text1]: Procedures Drainage of Right Pleural Cavity, Percutaneous Approach (11/20/21) Performance of Urinary Filtration, Intermittent, Less than 6 Hours Per Day (11/20/21) Transfusion of Nonautologous Red Blood Cells into Peripheral Vein, Percutaneous Approach (11/20/21) Labs on day of discharge: Laboratory Results - last 24 hr 01/16/22 01/17/22 01/17/22 21:22 13:04 17:43 WBC RBC Hgb Hct MCV MCH MCHC RDW Plt Count MPV Absolute Nucleated RBC Nucleated RBC % (auto) Sodium Potassium Chloride Carbon Dioxide Anion Gap BUN Creatinine Estim Creat Clear Calc Estimated GFR POC Glucose 216 H 112 202 H Random Glucose Calcium 01/18/22 01/18/22 01/19/22 15:29 19:27 05:35 WBC 9.9 RBC 2.60 L Hgb 8.5 L Hct 27.0 L MCV 103.8 H MCH 32.7 MCHC 31.5 RDW 16.5 H Plt Count 215 MPV 9.5 Absolute Nucleated RBC 0.000 Nucleated RBC % (auto) 0.0 Sodium Potassium Chloride Carbon Dioxide Anion Gap BUN Creatinine Estim Creat Clear Calc Estimated GFR POC Glucose 115 172 H Random Glucose Calcium 01/19/22 01/19/22 01/19/22 05:35 07:41 11:17 WBC RBC Hgb Hct MCV MCH MCHC RDW Plt Count MPV Absolute Nucleated RBC Nucleated RBC % (auto) Sodium 138 Potassium 5.3 H D Chloride 102 Carbon Dioxide 25 Anion Gap 16 BUN 63 H Creatinine 6.77 H* Estim Creat Clear Calc 11.8 Estimated GFR 8 POC Glucose 184 H 179 H Random Glucose 224 H D Calcium 9.2 Preliminary micro results at discharge 01/15/22 14:48 Blood Culture - Preliminary Blood - Venous No growth after 48 hours. 01/15/22 14:41 Blood Culture - Preliminary Blood - Venous No growth after 48 hours. Discharge Plan Discharge Anticipated Discharge Date/Time: 01/19/22 14:47 Patient Disposition: Home Health Service Discharge Diagnosis: 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 Referrals: Wendy Martini NP-C [Nurse Practitioner] - 2 Weeks (Wound check-up ) Biju Redd MD [Primary Care Provider] - 1 Week Discharge Medications: Continued acetaminophen 325 mg Tablet 650 mg PO Q6H PRN (Reason: Pain) 0RF cyanocobalamin (vitamin B-12) 1,000 mcg Tablet 1,000 mcg PO DAILY 0RF albuterol sulfate [ProAir HFA] 90 mcg/actuation Hfa Aerosol Inhaler 2 puff INHALATION Q6H PRN (Reason: Wheezing) 0RF insulin lispro 100 unit/mL Insulin Pen 1 sliding scale dose SUBCUT USEASDIRECTD 0RF Rx Instructions: 0-149: NONE 150-200: 4 UNITS 201-250: 6 UNITS 251-300: 8 UNITS 301-400: 10 UNITS 401-450: 12 UNITS duloxetine [Cymbalta] 20 mg Capsule,Delayed Release(Dr/Ec) 20 mg PO DAILY 0RF cholecalciferol (vitamin D3) 1,250 mcg (50,000 unit) capsule 1 cap PO SA 0RF sevelamer carbonate 800 mg Tablet 1,600 mg PO TID 0RF febuxostat [Uloric] 40 mg Tablet 40 mg PO DAILY 0RF Eliquis 2.5 mg Tablet 2.5 mg PO BID 0RF amlodipine 2.5 mg tablet 1 tab PO DAILY 0RF Isaura-Gabrielle 0.8 mg tablet 1 tab PO DAILY 0RF gabapentin 100 mg capsule 1 tab PO BID 0RF Discharge Orders: Discharge Order (Routine); Ordered 01/19/22 Ordered By: Sherron East Diet: advance to usual diet Activity on Discharge: As tolerated Stand Alone Forms: Patient Portal Discharge page Care Plan Goals: Take medications as prescribed Health Concerns: 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 Plan of Treatment: Follow up with cardiology office in 2 weeks for wound check Follow up with your primary care provider as needed Assessment: See discharge summary
--- NOTE | 2022-01-19 15:15 | W.MHC.F2F ---
Service Date Service Date: 01/19/22 Encounter Date of encounter: 01/19/22 Reasons for Services Signs and symptoms assessed: See Below Reason for residential: CV/CP assess and/or care and wound care Reason for physical therapy: home safety and mobility and therapeutic exercises (new pacemaker placement ) Homebound: Leaving the home is medically contraindicated at this time without the asist of a device and/or another person due th the listed conditions above and below. Reason homebound: unsteady gait / fall risk and other (post operative pacemaker placement ) Certification: Based on the above findings, I certify that this patient is confined to the home and needs intermittent residential care, physical therapy and/or speech therapy, or continues to need occupational therapy. The patient is under my care, and I have initiated the establishment of the plan of care. The patient will be followed by a physician who will periodically review the plan of care.
--- NOTE | 2022-01-19 15:17 | MHC.CM.PN ---
Patient has been medically cleared for dc to home today with new VNA.[facility]. Last IMM addressed on 01/17/22.
--- NOTE | 2022-01-19 16:32 | HO.PM.IMPN ---
Subjective Subjective Date of Service: 01/19/22 Review of Systems seen and examined this morning denies shortness of breath, chest pain, dizziness at this time s/p pacemaker placement Physical Exam Vital Signs: Vital Signs: Last Vital Signs Temp 98.1 F 01/19/22 11:18 Pulse 69 01/19/22 11:18 Resp 20 01/19/22 11:18 BP 134/72 01/19/22 11:18 Pulse Ox 96 01/19/22 11:18 Oxygen Flow Rate 2 01/15/22 14:17 BMI result Body Mass Index 29.5 Appearing in no acute distress lung sounds are clear to auscultation heart regular rate rhythm, clear S1, S2 positive bowel sounds, abdomen is soft, nontender neuro patient is alert x3, no focal deficits Objective Data Active Medications Acetaminophen (Acetaminophen 325 Mg Tablet) 650 mg PO Q6H PRN PRN Reason: Pain, Mild (Pain Scale 1-3) Last Admin: 01/17/22 01:01 Dose: 650 mg Documented by: RICHARD Albuterol Sulfate (Albuterol Sulfate 90 Mcg 8 Gm Inhaler) 2 puff INHALE Q6H PRN PRN Reason: Wheezing Apixaban (Apixaban 2.5 Mg Tablet) 2.5 mg PO BID [facility] Last Admin: 01/19/22 08:58 Dose: 2.5 mg Documented by: CARMELITA Cyanocobalamin (Cyanocobalamin (Vitamin B-12) 1,000 Mcg Tablet) 1,000 mcg PO DAILY [facility] Last Admin: 01/19/22 08:58 Dose: 1,000 mcg Documented by: CARMELITA Dextrose (Dextrose 50 % 25 Gm/50 Ml Syringe) 25 gm IVPUSH Q15M PRN; Protocol PRN Reason: per Hypoglycemia Standing Ord. Docusate Sodium (Docusate Sodium 100 Mg Capsule) 100 mg PO DAILY PRN PRN Reason: Constipation Duloxetine HCl (Duloxetine Hcl 20 Mg Capsule.) 20 mg PO DAILY [facility] Last Admin: 01/19/22 08:58 Dose: 20 mg Documented by: CARMELITA Epoetin Marvin (Epoetin Marvin 20,000 Unit/Ml Vial) 20,000 unit SUBCUT ONCE@1000 [facility] Stop: 01/20/22 10:01 Ergocalciferol (Ergocalciferol (Vitamin D2) 1,250 Mcg Capsule) 1,250 mcg PO SA [facility] Last Admin: 01/18/22 05:26 Dose: Not Given Documented by: LARRY Non-Admin Reason: Patient currently on different floor Gabapentin (Gabapentin 100 Mg Capsule) 100 mg PO BID [facility] Last Admin: 01/19/22 08:58 Dose: 100 mg Documented by: CARMELITA Glucose (Glucose Gel 15 Gm Gel..Gram.) 15 gm PO Q15M PRN; Protocol PRN Reason: per Hypoglycemia Standing Ord. Heparin Sodium (Porcine) (Heparin Sodium,Porcine 5,000 Unit/Ml Vial) 5,000 unit INTRACATH TUTHSA@1645 [facility] Last Admin: 01/18/22 05:26 Dose: Not Given Documented by: LARRY Non-Admin Reason: Patient currently on new floor Insulin Human Lispro (Insulin Lispro 100 Unit/Ml 3 Ml Vial) 0 unit SUBCUT QIDACHS [facility]; Protocol Last Admin: 01/19/22 12:00 Dose: 2 unit Documented by: CARMELITA Multivitamins/Vitamin C (Multivitamin Tablet) 1 tab PO DAILY [facility] Last Admin: 01/19/22 08:58 Dose: 1 tab Documented by: CARMELITA Non-Formulary Medication (Febuxostat [Uloric]) 40 mg PO DAILY [facility] Nystatin (Nystatin Powder 15 Gm Bottle) 1 appl TOPICAL BID [facility]; Protocol Last Admin: 01/19/22 08:59 Dose: 1 appl Documented by: CARMELITA Pharmacy Consult (Consult Rx Perform Med Rec) 1 each MISCELLANE ONCE PRN PRN Reason: Consult order Sevelamer Carbonate (Sevelamer Carbonate Tablet 800 Mg Tablet) 1,600 mg PO TID [facility] Last Admin: 01/19/22 08:58 Dose: 1,600 mg Documented by: CARMELITA Sodium Chloride (0.9 % Sodium Chloride Flush 3 Ml Syringe) 3 ml IVFLUSH QSHIFT [facility] Last Admin: 01/19/22 08:59 Dose: 3 ml Documented by: CARMELITA Labs CBC & Chem 7: 01/19/22 05:35 01/19/22 05:35 Labs: Laboratory Results - last 24 hr 01/16/22 01/17/22 01/17/22 21:22 13:04 17:43 MCV MCH MCHC RDW Plt Count MPV Absolute Nucleated RBC Nucleated RBC % (auto) Anion Gap Estim Creat Clear Calc Estimated GFR POC Glucose 216 H 112 202 H Random Glucose Calcium 01/18/22 01/19/22 01/19/22 19:27 05:35 05:35 MCV 103.8 H MCH 32.7 MCHC 31.5 RDW 16.5 H Plt Count 215 MPV 9.5 Absolute Nucleated RBC 0.000 Nucleated RBC % (auto) 0.0 Anion Gap 16 Estim Creat Clear Calc 11.8 Estimated GFR 8 POC Glucose 172 H Random Glucose 224 H D Calcium 9.2 01/19/22 01/19/22 07:41 11:17 MCV MCH MCHC RDW Plt Count MPV Absolute Nucleated RBC Nucleated RBC % (auto) Anion Gap Estim Creat Clear Calc Estimated GFR POC Glucose 184 H 179 H Random Glucose Calcium Assessment and Plan (1) Symptomatic bradycardia: Status: Acute (2) Atrial fibrillation with slow ventricular response: Status: Acute (3) ESRD on dialysis: Status: Acute Plan This is a 66-year-old male with history of ESRD on HD ([facility]), atrial fibrillation Eliquis, CHF, CAD chronic suprapubic catheter sent to the emergency department from dialysis due to hypotension and bradycardia with question syncope Syncope Reportedly bradycardic and hypotensive at dialysis Heart rate as low as 30s No evidence of hypotension since admission echo with preserved EF, grade II diastolic dysfunction, mild MR, TR, mild pulmonary hypertension orthostatic bp from admission positive likely secondary to bradycardia, inadequate ability to compensate for drop in bp at dialysis cardiology following s/p pacemaker placement PT rec home with services. chronic atrial fibrillation with slow ventricular response Heart rate as low as 30s. Patient reports chronic bradycardia with heart rate in the 30s at times Not on any rate lowering medication Eliquis on hold due to plan for pacemaker -continue tele monitoring -cardiology following, see above Hypertension Given hypotensive episode at dialysis, will hold Norvasc (dose of norvasc recently decreased to 2.5) BP has been on lower side without BP meds Monitor blood pressure closely elevated troponin trops flat ekg with some new t wave inversions no chest pain echo as above cardiology following UTI Related to chronic suprapubic catheter No evidence of sepsis Seen by ID, Initially treated with Meropenem due to 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 Curiel suprapubic catheter fell out and was replaced yesterday with 18fr with 10cc balloon per urology rec recently started on gabapentin for ?component of neuropathic pain ESRD on HD ,, Sa HD 01/17 -nephrology following Right pleural effusion doesn't seem to be symptomatic at this time. not requiring supplemental oxygen may be secondary to heart failure in setting of bradycardia monitor respiratory status closely consider drainage if develops respiratory symptoms Diabetes Not on baseline meds HbA1c 6.0 -SSI, POCs small open coccyx wound and chronic skin changes. present on admission continue local wound care frequent position changes Code status- full code HCP - Fili Chairez [phone], very involved and knowledgeable about medical history. called and updated Attending - Dr. Campbell Dispo - pt and HCP goal home with services but willing for SNF if necessary; PT eval pending Quality Stroke Does the patient have a stroke diagnosis?: No VTE Prior VTE?: No VTE Risk Level:: Medical - moderate - high VTE Device Contraindication: N/A - Device Ordered VTE Drug Contraindication: N/A - Med Ordered
[2022-01-19 16:45] LABS: Glucose, Whole Blood 204 mg/dL (60-115)
[2022-01-19 20:34] LABS: Glucose, Whole Blood 188 mg/dL (60-115)
--- NOTE | 2022-01-20 00:03 | PM.EVENT ---
Event Note Date of Service: 01/20/22 Event Note: Fever: Patient all fever of 102 F Send repeat blood cultures, UA, chest x-ray. Given 1 time dose of meropenem. Id follow-up
[2022-01-20 03:29] VITALS: BP 110/66; PULSE 61; RESP 16; TEMP 36.9; O2SAT 95
[2022-01-20 07:06] VITALS: BP 113/67; PULSE 70; RESP 19; TEMP 36.4; O2SAT 97
[2022-01-20 07:46] LABS: Glucose, Whole Blood 150 mg/dL (60-115)
--- NOTE | 2022-01-20 09:50 | HO.PM.IMPN ---
Subjective Subjective Date of Service: 01/20/22 Review of Systems Follow up pacemaker placement feeling better today but wants to have dialysis before going home Physical Exam Vital Signs: Vital Signs: Last Vital Signs Temp 97.6 F 01/20/22 07:06 Pulse 70 01/20/22 07:06 Resp 19 01/20/22 07:06 BP 113/67 01/20/22 07:06 Pulse Ox 97 01/20/22 07:06 Oxygen Flow Rate 2 01/15/22 14:17 BMI result Body Mass Index 29.5 Appearing in no acute distress lung sounds are clear to auscultation heart regular rate rhythm, clear S1, S2 positive bowel sounds, abdomen is soft, nontender neuro patient is alert x3, no focal deficits Suprapubic catheter site intact Pacemaker site clean and dry, no erythema, edema or drainage noted Objective Data Active Medications Acetaminophen (Acetaminophen 325 Mg Tablet) 650 mg PO Q6H PRN PRN Reason: Pain, Mild (Pain Scale 1-3) Last Admin: 01/17/22 01:01 Dose: 650 mg Documented by: RICHARD Albuterol Sulfate (Albuterol Sulfate 90 Mcg 8 Gm Inhaler) 2 puff INHALE Q6H PRN PRN Reason: Wheezing Apixaban (Apixaban 2.5 Mg Tablet) 2.5 mg PO BID [facility] Last Admin: 01/19/22 21:36 Dose: 2.5 mg Documented by: MAYLIN Cyanocobalamin (Cyanocobalamin (Vitamin B-12) 1,000 Mcg Tablet) 1,000 mcg PO DAILY [facility] Last Admin: 01/19/22 08:58 Dose: 1,000 mcg Documented by: CARMELITA Dextrose (Dextrose 50 % 25 Gm/50 Ml Syringe) 25 gm IVPUSH Q15M PRN; Protocol PRN Reason: per Hypoglycemia Standing Ord. Docusate Sodium (Docusate Sodium 100 Mg Capsule) 100 mg PO DAILY PRN PRN Reason: Constipation Duloxetine HCl (Duloxetine Hcl 20 Mg Capsule.Dr) 20 mg PO DAILY [facility] Last Admin: 01/19/22 08:58 Dose: 20 mg Documented by: CARMELITA Epoetin Marvin (Epoetin Marvin 20,000 Unit/Ml Vial) 20,000 unit SUBCUT ONCE@1000 [facility] Stop: 01/20/22 10:01 Ergocalciferol (Ergocalciferol (Vitamin D2) 1,250 Mcg Capsule) 1,250 mcg PO SA [facility] Last Admin: 01/18/22 05:26 Dose: Not Given Documented by: LARRY Non-Admin Reason: Patient currently on different floor Gabapentin (Gabapentin 100 Mg Capsule) 100 mg PO BID [facility] Last Admin: 01/19/22 21:35 Dose: 100 mg Documented by: MAYLIN Glucose (Glucose Gel 15 Gm Gel..Gram.) 15 gm PO Q15M PRN; Protocol PRN Reason: per Hypoglycemia Standing Ord. Heparin Sodium (Porcine) (Heparin Sodium,Porcine 5,000 Unit/Ml Vial) 5,000 unit INTRACATH TUTHSA@1645 [facility] Last Admin: 01/18/22 05:26 Dose: Not Given Documented by: LARRY Non-Admin Reason: Patient currently on new floor Insulin Human Lispro (Insulin Lispro 100 Unit/Ml 3 Ml Vial) 0 unit SUBCUT QIDACHS [facility]; Protocol Last Admin: 01/20/22 07:59 Dose: Not Given Documented by: COLTEN Non-Admin Reason: No Insulin Coverage Multivitamins/Vitamin C (Multivitamin Tablet) 1 tab PO DAILY [facility] Last Admin: 01/19/22 08:58 Dose: 1 tab Documented by: CARMELITA Non-Formulary Medication (Febuxostat [Uloric]) 40 mg PO DAILY [facility] Nystatin (Nystatin Powder 15 Gm Bottle) 1 appl TOPICAL BID [facility]; Protocol Last Admin: 01/19/22 21:41 Dose: 1 appl Documented by: MAYLIN Pharmacy Consult (Consult Rx Perform Med Rec) 1 each MISCELLANE ONCE PRN PRN Reason: Consult order Sevelamer Carbonate (Sevelamer Carbonate Tablet 800 Mg Tablet) 1,600 mg PO TID [facility] Last Admin: 01/19/22 21:36 Dose: 1,600 mg Documented by: MAYLIN Sodium Chloride (0.9 % Sodium Chloride Flush 3 Ml Syringe) 3 ml IVFLUSH QSHIFT [facility] Last Admin: 01/19/22 21:36 Dose: 3 ml Documented by: MAYLIN Labs CBC & Chem 7: 01/19/22 05:35 01/19/22 05:35 Labs: Laboratory Results - last 24 hr 0201/19/22 01/19/22 11:17 16:42 20:27 POC Glucose 179 H 204 H 188 H 01/20/22 07:12 POC Glucose 150 H Assessment and Plan (1) Symptomatic bradycardia: Status: Acute (2) Atrial fibrillation with slow ventricular response: Status: Acute (3) ESRD on dialysis: Status: Acute Plan This is a 66-year-old male with history of ESRD on HD ([facility]), atrial fibrillation Eliquis, CHF, CAD chronic suprapubic catheter sent to the emergency department from dialysis due to hypotension and bradycardia with question syncope Syncope secondary to bradycardia and hypotension at dialysis Heart rate as low as 30s No evidence of hypotension since admission echo with preserved EF, grade II diastolic dysfunction, mild MR, TR, mild pulmonary hypertension likely secondary to bradycardia, inadequate ability to compensate for drop in bp at dialysis cardiology following s/p pacemaker placement PT rec home with services. chronic atrial fibrillation with slow ventricular response Heart rate as low as 30s. Patient reports chronic bradycardia with heart rate in the 30s at times Not on any rate lowering medication Eliquis on hold due to plan for pacemaker continue tele monitoring cardiology following, see above Hypertension Given hypotensive episode at dialysis, will hold Norvasc (dose of norvasc recently decreased to 2.5) BP has been on lower side without BP meds Monitor blood pressure closely elevated troponin trops flat ekg with some new t wave inversions no chest pain echo as above cardiology following UTI Related to chronic suprapubic catheter No evidence of sepsis Seen by ID, Initially treated with Meropenem due to 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 Curiel suprapubic catheter fell out and was replaced yesterday with 18fr with 10cc balloon per urology rec recently started on gabapentin for ?component of neuropathic pain ESRD on HD , HD 01/17 -nephrology following Right pleural effusion doesn't seem to be symptomatic at this time. not requiring supplemental oxygen may be secondary to heart failure in setting of bradycardia monitor respiratory status closely consider drainage if develops respiratory symptoms Diabetes Not on baseline meds HbA1c 6.0 -SSI, POCs small open coccyx wound and chronic skin changes. present on admission continue local wound care frequent position changes Code status- full code HCP - Biadelsosathya Hayk [phone], very involved and knowledgeable about medical history. called and updated Attending - Dr. Campbell Dispo - pt and HCP goal home with services but willing for SNF if necessary; PT eval pending Quality Stroke Does the patient have a stroke diagnosis?: No VTE Prior VTE?: No VTE Risk Level:: Medical - moderate - high VTE Device Contraindication: N/A - Device Ordered VTE Drug Contraindication: N/A - Med Ordered
--- NOTE | 2022-01-20 10:37 | P.PNCA_ITS ---
Subjective Subjective Date of Service: 01/20/22 Principal diagnosis: junctional bradycardia, s/p pacemaker Interval history: Cardiology follow up post PPM. Seen at 0900. Today he reports feeling good. He denies any soreness at PPM site. No CP, sob, palpitations. Reports some mild weakness and was able to walk to doorway using walker and assistance last bety. Dialysis scheduled for today. Review of Systems Review of Systems as above Yes all other systems are reviewed and are negative Physical Exam Vital Signs: Last Vital Signs Temp 97.6 F 01/20/22 07:06 Pulse 70 01/20/22 07:06 Resp 19 01/20/22 07:06 BP 113/67 01/20/22 07:06 Pulse Ox 97 01/20/22 07:06 Oxygen Flow Rate 2 01/15/22 14:17 BMI result Body Mass Index 29.5 Const General: cooperative, no acute distress, alert and awake Orientation/consciousness: patient oriented x3 Neck Neck: Yes normal visual inspection and Yes no JVD Chest Other: pacer site left upper chest with dry gauze and tegaderm dressing, dialysis catheter right upper chest Resp Other: rales noted left anterior mid chest Effort & Inspection: normal respiratory effort, able to speak in complete sentences and not labored Auscultation: clear to auscultation bilaterally, no rhonchi and no wheezes Cardio Palpation: normal PMI Rate: regular rate Rhythm: regular rhythm Heart sounds: S1 normal heart sound present and S2 normal heart sound present Peripheral pulses: Peripheral pulses 2+ throughout Neuro General: patient oriented x3 Extrem General: Yes normal to inspection and No edema Objective Labs and Meds Result diagrams: 01/19/22 05:35 01/19/22 05:35 Lab results: Laboratory Results - last 24 hr 01/19/22 01/19/22 01/19/22 11:17 16:42 20:27 POC Glucose 179 H 204 H 188 H 01/20/22 07:12 POC Glucose 150 H Imaging Radiologist's impression: Impressions Chest X-Ray 01/19/22 12:51 IMPRESSION: Well-positioned support inclines. Bilateral right more than left pleural effusion. Progress Note: A&P Assessment and plan (1) Status post placement of cardiac pacemaker: Status: Acute Assessment and Plan: Admit with bradycardia, hypotension, brief syncopal event at dialysis. EKGs showed afib with slow ventricular response. Tele was showing junctional balyne, r ates 50s. He did undergo a dual chamber pacemaker placement with Dr Lawrence 01/18. CXR post device showed pacer leads in RA and RV, stable moderate right pleural effusion. CXR yesterday afternoon shows leads in correct position, R > L pleural effusions. Device Interrogation yesterday am by [facility] Lm Rep indicates device is functioning normally. Tele shows A sensed and occassional A paced and V paced rhythm with isolated PVCs. Site without swelling, bleeding. Pt denies discomfort. Site care reviewed, leave dressing intact. Discussed not raising left arm above level of shoulder. To call office if any concerns. He has remote monitor device in his room - He has been instructed to plug in at bedside at home. We will arrange for a 2 week wound check in our office and a 6 week device check. Can be discharged from cardiology perspective. (2) Symptomatic bradycardia: Status: Acute (3) Junctional bradycardia: Status: Acute (4) Atrial fibrillation with slow ventricular response: Status: Acute Assessment and Plan: Hx of afib. Slow ventricular response on initial EKGs. Now with occassional A pacing and V pacing at present, could have underlying afib at times. Echo shows EF 54%, mod increase RV size, mild MR, TR, pulm HTN.? No requiring rate slowing meds. He is on Eliquis 2.5 mg bid - dialysis pt. No bleeding issues. Anemia of chronic disease and on procrit. (5) ESRD on dialysis: Status: Acute Assessment and Plan: Dialysis planned for today. (6) CHF (congestive heart failure): Status: Acute Assessment and Plan: Right pleural effusion, reported as stable, on 01/18 CXR. Not new, seen on CXR in Oct as well. CXR done yesterday shows bilateral pleural effusion, R> L. He d enies feeling sob. Having dialysis today. Fall Risk Details Current Medications: Current Medications Acetaminophen (Acetaminophen 325 Mg Tablet) 650 mg PO Q6H PRN PRN Reason: Pain, Mild (Pain Scale 1-3) Last Admin: 01/17/22 01:01 Dose: 650 mg Documented by: Albuterol Sulfate (Albuterol Sulfate 90 Mcg 8 Gm Inhaler) 2 puff INHALE Q6H PRN PRN Reason: Wheezing Apixaban (Apixaban 2.5 Mg Tablet) 2.5 mg PO BID [facility] Last Admin: 01/19/22 21:36 Dose: 2.5 mg Documented by: Cyanocobalamin (Cyanocobalamin (Vitamin B-12) 1,000 Mcg Tablet) 1,000 mcg PO DAILY [facility] Last Admin: 01/19/22 08:58 Dose: 1,000 mcg Documented by: Dextrose (Dextrose 50 % 25 Gm/50 Ml Syringe) 25 gm IVPUSH Q15M PRN; Protocol PRN Reason: per Hypoglycemia Standing Ord. Docusate Sodium (Docusate Sodium 100 Mg Capsule) 100 mg PO DAILY PRN PRN Reason: Constipation Duloxetine HCl (Duloxetine Hcl 20 Mg Capsule.Dr) 20 mg PO DAILY [facility] Last Admin: 01/19/22 08:58 Dose: 20 mg Documented by: Ergocalciferol (Ergocalciferol (Vitamin D2) 1,250 Mcg Capsule) 1,250 mcg PO SA [facility] Last Admin: 01/18/22 05:26 Dose: Not Given Documented by: Gabapentin (Gabapentin 100 Mg Capsule) 100 mg PO BID [facility] Last Admin: 01/19/22 21:35 Dose: 100 mg Documented by: Glucose (Glucose Gel 15 Gm Gel..Gram.) 15 gm PO Q15M PRN; Protocol PRN Reason: per Hypoglycemia Standing Ord. Heparin Sodium (Porcine) (Heparin Sodium,Porcine 5,000 Unit/Ml Vial) 5,000 unit INTRACATH TUTA@1645 [facility] Last Admin: 01/18/22 05:26 Dose: Not Given Documented by: Insulin Human Lispro (Insulin Lispro 100 Unit/Ml 3 Ml Vial) 0 unit SUBCUT QIDACHS [facility]; Protocol Last Admin: 01/20/22 07:59 Dose: Not Given Documented by: Multivitamins/Vitamin C (Multivitamin Tablet) 1 tab PO DAILY [facility] Last Admin: 01/19/22 08:58 Dose: 1 tab Documented by: Non-Formulary Medication (Febuxostat [Uloric]) 40 mg PO DAILY [facility] Nystatin (Nystatin Powder 15 Gm Bottle) 1 appl TOPICAL BID [facility]; Protocol Last Admin: 01/19/22 21:41 Dose: 1 appl Documented by: Pharmacy Consult (Consult Rx Perform Med Rec) 1 each MISCELLANE ONCE PRN PRN Reason: Consult order Sevelamer Carbonate (Sevelamer Carbonate Tablet 800 Mg Tablet) 1,600 mg PO TID [facility] Last Admin: 01/19/22 21:36 Dose: 1,600 mg Documented by: Sodium Chloride (0.9 % Sodium Chloride Flush 3 Ml Syringe) 3 ml IVFLUSH QSHIFT [facility] Last Admin: 01/19/22 21:36 Dose: 3 ml Documented by: Time Spent With Patient Time: Total time spent is greater than 50% in coordination of care (as documented) at patient's floor/unit and/or counseling patient: 18 Time with patient: 15 - 24 minutes Progress Note: Quality Stroke Does the patient have a stroke diagnosis?: No Procedures Date of Service Date of Service: 01/20/22
--- NOTE | 2022-01-20 10:56 | P.PNNP_ITS ---
Subjective Subjective Date of Service: 01/20/22 Principal diagnosis: junctional bradycardia, s/p pacemaker Interval history: Seen during HD Physical Exam Vital Signs: Vital Signs: Last Vital Signs Temp 97.6 F 01/20/22 07:06 Pulse 70 01/20/22 07:06 Resp 19 01/20/22 07:06 BP 113/67 01/20/22 07:06 Pulse Ox 97 01/20/22 07:06 Oxygen Flow Rate 2 01/15/22 14:17 BMI result Body Mass Index 29.5 Const: General: comfortable and no acute distress HENMT: Head: Yes normocephalic Eyes: EOM: EOMs intact bilaterally Neck: Neck: Yes supple Chest: Other: Permcath right side of chest wall Resp: Auscultation: diminished lung sounds Cardio: Rate: regular rate GI: Palpation (GI): Soft to palpation : Other: Supra pubic catheter present Neuro: General: moves all extremities Objective Data Labs CBC & Chem 7: 01/19/22 05:35 01/19/22 05:35 Labs: Laboratory Results - last 24 hr 01/19/22 01/19/22 01/19/22 11:17 16:42 20:27 POC Glucose 179 H 204 H 188 H 01/20/22 07:12 POC Glucose 150 H Microbiology Microbiology Results: Microbiology 01/15/22 14:48 Blood - Venous Blood Culture - Preliminary No growth after 48 hours. 01/15/22 14:41 Blood - Venous Blood Culture - Preliminary No growth after 48 hours. 01/15/22 16:47 Urine clean catch - Urine francis top Urine Culture - Final Procedures Date of Service Date of Service: 01/20/22 Assessment & Plan Assessment and plan (1) ESRD on dialysis: Status: Acute Assessment and Plan: Usually gets HD on TTS ( [facility]) Renal Diet; Phos binders with meals Antibiotics dosed for GFR May need Right Pl effusion drained Pacemaker Procrit 1999) TTS( ordered) Shall continue to closely follow up Time Spent With Patient Time: Total time spent is greater than 50% in coordination of care (as documented) at patient's floor/unit and/or counseling patient: Progress Note: Quality Stroke Does the patient have a stroke diagnosis?: No
[2022-01-20] MEDS: Gabapentin 100 MG CAPSULE PO ×2 (14:43→21:11)
[2022-01-20] MEDS: DULoxetine HCl 20 MG CAPSULE.DR PO (14:43)
[2022-01-20] MEDS: Sevelamer Carbonate Tablet 800 MG TABLET 1600 MG PO ×2 (14:43→21:11)
[2022-01-20] MEDS: Apixaban 2.5 MG TABLET PO ×2 (14:44→21:11)
[2022-01-20] MEDS: Cyanocobalamin (Vitamin B-12) 1,000 MCG TABLET 1000 MCG PO (14:44)
[2022-01-20] MEDS: Nystatin Powder 15 GM BOTTLE 1 APPL TOPICAL ×2 (14:45→21:12)
[2022-01-20] MEDS: 0.9 % Sodium Chloride Flush 3 ML SYRINGE IVFLUSH ×3 (14:45→21:12)
--- NOTE | 2022-01-20 14:46 | PC.NURSE ---
Skin/wound assessment completed. Patient has stage 2 pressure ulcers to left buttock and coccyx. Pray and yellow wound beds. Triad applied to wound beds covered with foam dressing. Patient is on an airloss bed and is turned and repositioned q 2 h.
[2022-01-20 15:25] VITALS: BP 105/63; PULSE 71; RESP 16; TEMP 36.6; O2SAT 96
[2022-01-20 15:49] LABS: Glucose, Whole Blood 152 mg/dL (60-115)
[2022-01-20] MEDS: Insulin Lispro 100 UNIT/ML 3 ML VIAL SUBCUT (17:44)
[2022-01-20] MEDS: Heparin Sodium,Porcine 5,000 UNIT/ML VIAL 5000 UNIT INTRACATH (17:44)
[2022-01-20 19:12] VITALS: BP 116/69; PULSE 61; RESP 18; TEMP 36.1; O2SAT 95
[2022-01-20 20:11] LABS: Glucose, Whole Blood 125 mg/dL (60-115)
[2022-01-21] VITALS (8 sets, daily range): BP systolic 113–126; BP diastolic 61–75; PULSE 67–72; RESP 16–19; TEMP 35.8–37.2; O2SAT 96–98
[2022-01-21 07:53] LABS: Glucose, Whole Blood 132 mg/dL (60-115)
[2022-01-21 08:40] LABS: Anion Gap 15 (12-20); Blood Urea Nitrogen 52 mg/dL (9-16); Calcium 8.5 mg/dL (8.4-10.2); Carbon Dioxide 20 mmol/L (22-29); Chloride 100 mmol/L (96-108); Creatinine Clr Calc Pharmacy 15.1; Estimated Glomerular Filt Rate 11; Glucose Random 126 mg/dL (60-115); Potassium 4.9 mmol/L (3.3-5.1); Sodium 130 mmol/L (135-145)
--- NOTE | 2022-01-21 09:42 | PM.PNNEP ---
Subjective Subjective Date of Service: 01/21/22 Principal diagnosis: junctional bradycardia, s/p pacemaker Interval history: Events noted Physical Exam Vital Signs: Vital Signs: Last Vital Signs Temp 96.4 F L 01/21/22 07:46 Pulse 72 01/21/22 07:46 Resp 18 01/21/22 07:46 BP 121/67 01/21/22 07:46 Pulse Ox 97 01/21/22 07:46 Oxygen Flow Rate 2 01/15/22 14:17 BMI result Body Mass Index 29.5 Const: General: comfortable and no acute distress HENMT: Head: Yes normocephalic Eyes: EOM: EOMs intact bilaterally Neck: Neck: Yes supple Chest: Other: Permcath right side of chest wall Resp: Auscultation: diminished lung sounds Cardio: Rate: regular rate GI: Palpation (GI): Soft to palpation : Other: Supra pubic catheter present Neuro: General: moves all extremities Objective Data Labs CBC & Chem 7: 01/19/22 05:35 01/21/22 08:10 Labs: Laboratory Results - last 24 hr 01/20/22 01/20/22 01/21/22 15:40 20:04 07:49 Sodium Potassium Chloride Carbon Dioxide Anion Gap BUN Creatinine Estim Creat Clear Calc Estimated GFR POC Glucose 152 H 125 H 132 H Random Glucose Calcium 01/21/22 08:10 Sodium 130 L Potassium 4.9 Chloride 100 Carbon Dioxide 20 L Anion Gap 15 BUN 52 H Creatinine 5.31 H* Estim Creat Clear Calc 15.1 Estimated GFR 11 POC Glucose Random Glucose 126 H D Calcium 8.5 D Microbiology Microbiology Results: Microbiology 01/15/22 14:48 Blood - Venous Blood Culture - Final No growth after 5 days. 01/15/22 14:41 Blood - Venous Blood Culture - Final No growth after 5 days. 01/15/22 16:47 Urine clean catch - Urine francis top Urine Culture - Final Procedures Date of Service Date of Service: 01/21/22 Assessment & Plan Assessment and plan (1) ESRD on dialysis: Status: Acute Assessment and Plan: Usually gets HD on TTS ( [facility]) Renal Diet; Phos binders with meals Antibiotics dosed for GFR May need Right Pl effusion drained Pacemaker Procrit 1999) TTS( ordered) Shall continue to closely follow up PT evaluation and DC planning - Home vs Rehab Time Spent With Patient Time: Total time spent is greater than 50% in coordination of care (as documented) at patient's floor/unit and/or counseling patient: Time with patient: 15 - 24 minutes Progress Note: Quality Stroke Does the patient have a stroke diagnosis?: No
[2022-01-21] MEDS: Sevelamer Carbonate Tablet 800 MG TABLET 1600 MG PO ×3 (10:34→20:32)
[2022-01-21] MEDS: Multivitamin TABLET 1 TAB PO (10:35)
[2022-01-21] MEDS: 0.9 % Sodium Chloride Flush 3 ML SYRINGE IVFLUSH ×3 (10:35→20:33)
[2022-01-21] MEDS: Nystatin Powder 15 GM BOTTLE 1 APPL TOPICAL (10:35)
[2022-01-21] MEDS: Gabapentin 100 MG CAPSULE PO ×2 (10:35→20:32)
[2022-01-21] MEDS: DULoxetine HCl 20 MG CAPSULE.DR PO (10:35)
[2022-01-21] MEDS: Apixaban 2.5 MG TABLET PO ×2 (10:35→20:32)
[2022-01-21] MEDS: Cyanocobalamin (Vitamin B-12) 1,000 MCG TABLET 1000 MCG PO (10:35)
[2022-01-21 11:45] LABS: Glucose, Whole Blood 168 mg/dL (60-115)
[2022-01-21] MEDS: Insulin Lispro 100 UNIT/ML 3 ML VIAL SUBCUT (11:59)
--- NOTE | 2022-01-21 12:09 | MHC.CLN ---
F/U PO INTAKE 75% AVG X 6 MEALS PT WITH INCREASED NUTRITION NEEDS R/T PRESSURE AREA AND HD DIET RX: 2200DM 2GM NA LOW K+, LOW PHOS-APPROPRIATE PT RECEIVING ENSURE CLEAR TID TO INCREASE KCALS AND PROMOTE WOUND HEALING SUPP IS RENAL FRIENDLY AND PROVIDES 720KCALS, 24G PROTEIN CONTINUE TO MONITOR PO INTAKE CLOSELY
--- NOTE | 2022-01-21 13:35 | MHC.CM.PN ---
PT is recommending STR; Patient's first choice facility ([facility]) is unable to accept Patient. CM will continue SNF search.
--- NOTE | 2022-01-21 15:16 | P.PNIM_ITS ---
Subjective Subjective Date of Service: 01/21/22 Review of Systems Follow up pacemaker placement Feeling weak with some difficulty ambulating Physical Exam Vital Signs: Vital Signs: Last Vital Signs Temp 96.6 F L 01/21/22 11:12 Pulse 69 01/21/22 11:12 Resp 19 01/21/22 11:12 BP 119/69 01/21/22 11:12 Pulse Ox 98 01/21/22 11:12 Oxygen Flow Rate 2 01/15/22 14:17 BMI result Body Mass Index 29.5 Appearing in no acute distress lung sounds are clear to auscultation heart regular rate rhythm, clear S1, S2 positive bowel sounds, abdomen is soft, nontender neuro patient is alert x3, no focal deficits Pacemaker surgical incision clean and dry, no drainage, no erythema Objective Data Active Medications Acetaminophen (Acetaminophen 325 Mg Tablet) 650 mg PO Q6H PRN PRN Reason: Pain, Mild (Pain Scale 1-3) Last Admin: 01/17/22 01:01 Dose: 650 mg Documented by: RICHARD Albuterol Sulfate (Albuterol Sulfate 90 Mcg 8 Gm Inhaler) 2 puff INHALE Q6H PRN PRN Reason: Wheezing Apixaban (Apixaban 2.5 Mg Tablet) 2.5 mg PO BID [facility] Last Admin: 01/21/22 10:35 Dose: 2.5 mg Documented by: COLTEN Cyanocobalamin (Cyanocobalamin (Vitamin B-12) 1,000 Mcg Tablet) 1,000 mcg PO DAILY [facility] Last Admin: 01/21/22 10:35 Dose: 1,000 mcg Documented by: COLTEN Dextrose (Dextrose 50 % 25 Gm/50 Ml Syringe) 25 gm IVPUSH Q15M PRN; Protocol PRN Reason: per Hypoglycemia Standing Ord. Docusate Sodium (Docusate Sodium 100 Mg Capsule) 100 mg PO DAILY PRN PRN Reason: Constipation Duloxetine HCl (Duloxetine Hcl 20 Mg Capsule.) 20 mg PO DAILY [facility] Last Admin: 01/21/22 10:35 Dose: 20 mg Documented by: COLTEN Ergocalciferol (Ergocalciferol (Vitamin D2) 1,250 Mcg Capsule) 1,250 mcg PO SA [facility] Last Admin: 01/18/22 05:26 Dose: Not Given Documented by: LARRY Non-Admin Reason: Patient currently on different floor Gabapentin (Gabapentin 100 Mg Capsule) 100 mg PO BID [facility] Last Admin: 01/21/22 10:35 Dose: 100 mg Documented by: COLTEN Glucose (Glucose Gel 15 Gm Gel..Gram.) 15 gm PO Q15M PRN; Protocol PRN Reason: per Hypoglycemia Standing Ord. Heparin Sodium (Porcine) (Heparin Sodium,Porcine 5,000 Unit/Ml Vial) 5,000 unit INTRACATH TUTHSA@1645 [facility] Last Admin: 01/20/22 17:44 Dose: 5,000 unit Documented by: COLTEN Insulin Human Lispro (Insulin Lispro 100 Unit/Ml 3 Ml Vial) 0 unit SUBCUT QIDACHS [facility]; Protocol Last Admin: 01/21/22 11:59 Dose: 2 unit Documented by: COLTEN Multivitamins/Vitamin C (Multivitamin Tablet) 1 tab PO DAILY [facility] Last Admin: 01/21/22 10:35 Dose: 1 tab Documented by: COLTEN Nystatin (Nystatin Powder 15 Gm Bottle) 1 appl TOPICAL BID [facility]; Protocol Last Admin: 01/21/22 10:35 Dose: 1 appl Documented by: COLTEN Pharmacy Consult (Consult Rx Perform Med Rec) 1 each MISCELLANE ONCE PRN PRN Reason: Consult order Sevelamer Carbonate (Sevelamer Carbonate Tablet 800 Mg Tablet) 1,600 mg PO TID [facility] Last Admin: 01/21/22 10:34 Dose: 1,600 mg Documented by: COLTEN Sodium Chloride (0.9 % Sodium Chloride Flush 3 Ml Syringe) [facility] Admin: 01/21/22 10:35 Dose: 3 ml Documented by: COLTEN Labs CBC & Chem 7: 01/19/22 05:35 01/21/22 08:10 Labs: Laboratory Results - last 24 hr 01/20/22 01/20/22 01/21/22 15:40 20:04 07:49 Anion Gap Estim Creat Clear Calc Estimated GFR POC Glucose 152 H 125 H 132 H Random Glucose Calcium 01/21/22 01/21/22 08:10 11:18 Anion Gap 15 Estim Creat Clear Calc 15.1 Estimated GFR 11 POC Glucose 168 H Random Glucose 126 H D Calcium 8.5 D Microbiology Microbiology Results: Microbiology 01/15/22 14:48 Blood Culture - Final Blood - Venous No growth after 5 days. 01/15/22 14:41 Blood Culture - Final Blood - Venous No growth after 5 days. Assessment and Plan (1) Symptomatic bradycardia: Status: Acute (2) Atrial fibrillation with slow ventricular response: Status: Acute (3) ESRD on dialysis: Status: Acute Plan This is a 66-year-old male with history of ESRD on HD ([facility]), atrial fibrillation Eliquis, CHF, CAD chronic suprapubic catheter sent to the emergency department from dialysis due to hypotension and bradycardia with question syncope Syncope secondary to bradycardia and hypotension at dialysis Heart rate as low as 30s No evidence of hypotension since admission echo with preserved EF, grade II diastolic dysfunction, mild MR, TR, mild p ulmonary hypertension likely secondary to bradycardia, inadequate ability to compensate for drop in bp at dialysis cardiology following s/p pacemaker placement Chronic atrial fibrillation with slow ventricular response Heart rate as low as 30s. 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 Curiel suprapubic catheter fell out and was replaced yesterday with 18fr with 10cc balloon per urology rec recently started on gabapentin for ?component of neuropathic pain ESRD on HD ,, HD 01/17 -nephrology following Right pleural effusion doesn't seem to be symptomatic at this time. not requiring supplemental oxygen may be secondary to heart failure in setting of bradycardia monitor respiratory status closely consider drainage if develops respiratory symptoms Diabetes Not on baseline meds HbA1c 6.0 -SSI, POCs small open coccyx wound and chronic skin changes. present on admission continue local wound care frequent position changes Patient requires continued hospitalization, he is medically cleared and aw aiting short-term rehab placement Code status- full code MIN - Fili Chairez [phone], very involved and knowledgeable about medical history. called and updated Attending - Dr. Campbell Quality Stroke Does the patient have a stroke diagnosis?: No VTE Prior VTE?: No VTE Risk Level:: Medical - moderate - high VTE Device Contraindication: N/A - Device Ordered VTE Drug Contraindication: N/A - Med Ordered
[2022-01-21 16:10] LABS: Glucose, Whole Blood 104 mg/dL (60-115)
[2022-01-21 20:21] LABS: Glucose, Whole Blood 125 mg/dL (60-115)
[2022-01-22] VITALS (7 sets, daily range): BP systolic 115–133; BP diastolic 57–76; PULSE 56–73; RESP 18–20; TEMP 36.1–37.1; O2SAT 96–99
[2022-01-22 07:31] LABS: Glucose, Whole Blood 139 mg/dL (60-115)
[2022-01-22] MEDS: Apixaban 2.5 MG TABLET PO ×2 (08:29→21:56)
[2022-01-22] MEDS: Sevelamer Carbonate Tablet 800 MG TABLET 1600 MG PO ×3 (08:29→21:56)
[2022-01-22] MEDS: DULoxetine HCl 20 MG CAPSULE.DR PO (08:30)
[2022-01-22] MEDS: Multivitamin TABLET 1 TAB PO (08:30)
[2022-01-22] MEDS: Gabapentin 100 MG CAPSULE PO ×2 (08:30→21:56)
[2022-01-22] MEDS: 0.9 % Sodium Chloride Flush 3 ML SYRINGE IVFLUSH ×3 (08:30→21:56)
[2022-01-22] MEDS: Cyanocobalamin (Vitamin B-12) 1,000 MCG TABLET 1000 MCG PO (08:30)
[2022-01-22] MEDS: Nystatin Powder 15 GM BOTTLE 1 APPL TOPICAL ×2 (08:33→21:56)
--- NOTE | 2022-01-22 09:44 | PM.PNNEP ---
Subjective Subjective Date of Service: 01/22/22 Principal diagnosis: junctional bradycardia, s/p pacemaker Interval history: Events noted Physical Exam Vital Signs: Vital Signs: Last Vital Signs Temp 97.5 F 01/22/22 07:50 Pulse 73 01/22/22 07:50 Resp 18 01/22/22 07:50 BP 115/61 01/22/22 07:50 Pulse Ox 98 01/22/22 07:50 Oxygen Flow Rate 2 01/15/22 14:17 BMI result Body Mass Index 29.5 Const: General: comfortable and no acute distress HENMT: Head: Yes normocephalic Eyes: EOM: EOMs intact bilaterally Neck: Neck: Yes supple Chest: Other: Permcath right side of chest wall Resp: Auscultation: diminished lung sounds Cardio: Rate: regular rate GI: Palpation (GI): Soft to palpation : Other: Supra pubic catheter present Neuro: General: moves all extremities Objective Data Labs CBC & Chem 7: 01/19/22 05:35 01/21/22 08:10 Labs: Laboratory Results - last 24 hr 01/21/22 01/21/22 01/21/22 11:18 16:07 20:17 POC Glucose 168 H 104 125 H 01/22/22 07:12 POC Glucose 139 H Microbiology Microbiology Results: Microbiology 01/15/22 14:48 Blood - Venous Blood Culture - Final No growth after 5 days. 01/15/22 14:41 Blood - Venous Blood Culture - Final No growth after 5 days. 01/15/22 16:47 Urine clean catch - Urine francis top Urine Culture - Final Procedures Date of Service Date of Service: 01/22/22 Assessment & Plan Assessment and plan (1) ESRD on dialysis: Status: Acute Assessment and Plan: Usually gets HD on TTS ( [place] [facility]) Renal Diet; Phos binders with meals Antibiotics dosed for GFR May need Right Pl effusion drained Pacemaker Procrit 1999) TTS( ordered) Shall continue to closely follow up PT evaluation and DC planning - Home vs Rehab Time Spent With Patient Time: Total time spent is greater than 50% in coordination of care (as documented) at patient's floor/unit and/or counseling patient: Time with patient: 15 - 24 minutes Progress Note: Quality Stroke Does the patient have a stroke diagnosis?: No
[2022-01-22 11:02] LABS: Glucose, Whole Blood 172 mg/dL (60-115)
--- NOTE | 2022-01-22 11:30 | MHC.CM.PN ---
Per [facility] [employer]/Deepali, Patient has [facility] ? Standard- [id number].
[2022-01-22] MEDS: Insulin Lispro 100 UNIT/ML 3 ML VIAL SUBCUT (11:33)
--- NOTE | 2022-01-22 13:14 | HO.PM.IMPN ---
Subjective Subjective Date of Service: 01/22/22 Interval History: seen and examined this morning no overnight events feeling well, no chest pain or sob Review of Systems Review of Systems: Yes all other systems are reviewed and are negative Constitutional Constitutional: Denies chills and Denies fever(s) Cardiovascular Cardiovascular: Denies chest pain, Denies palpitations and Denies dyspnea Respiratory Respiratory: Denies cough and Denies dyspnea Gastrointestinal Gastrointestinal: Denies abdominal pain Endocrine Endocrine: Denies palpitations Physical Exam Vital Signs: Vital Signs: Last Vital Signs Temp 96.9 F 01/22/22 11:31 Pulse 70 01/22/22 11:31 Resp 18 01/22/22 11:31 BP 133/76 01/22/22 11:31 Pulse Ox 98 01/22/22 11:31 Oxygen Flow Rate 2 01/15/22 14:17 BMI result Body Mass Index 29.5 Const: General: cooperative, comfortable, no acute distress, alert and awake Nutritional Appearance: average body habitus Chest: Other: dialysis cath present right chest wall; PM left chest wall, clean and dry Resp: Other: diminished right base, otherwise clear to auscultation Effort & Inspection: normal respiratory effort and able to speak in complete sentences Cardio: Rate: bradycardic Rhythm: abnormal rhythm GI: Inspection: No distended Palpation (GI): Soft to palpation and nontender : Other: Suprapubic catheter present Skin: Other: Extrem: Other: no leg edema Objective Data Active Medications Acetaminophen (Acetaminophen 325 Mg Tablet) 650 mg PO Q6H PRN PRN Reason: Pain, Mild (Pain Scale 1-3) Last Admin: 01/17/22 01:01 Dose: 650 mg Documented by: RICHARD Albuterol Sulfate (Albuterol Sulfate 90 Mcg 8 Gm Inhaler) 2 puff INHALE Q6H PRN PRN Reason: Wheezing Apixaban (Apixaban 2.5 Mg Tablet) 2.5 mg PO BID [facility] Last Admin: 01/22/22 08:29 Dose: 2.5 mg Documented by: CORINNE Cyanocobalamin (Cyanocobalamin (Vitamin B-12) 1,000 Mcg Tablet) 1,000 mcg PO DAILY [facility] Last Admin: 01/22/22 08:30 Dose: 1,000 mcg Documented by: SIMEMA Dextrose (Dextrose 50 % 25 Gm/50 Ml Syringe) 25 gm IVPUSH Q15M PRN; Protocol PRN Reason: per Hypoglycemia Standing Ord. Docusate Sodium (Docusate Sodium 100 Mg Capsule) 100 mg PO DAILY PRN PRN Reason: Constipation Duloxetine HCl (Duloxetine Hcl 20 Mg Capsule.Dr) 20 mg PO DAILY [facility] Last Admin: 01/22/22 08:30 Dose: 20 mg Documented by: CORINNE Ergocalciferol (Ergocalciferol (Vitamin D2) 1,250 Mcg Capsule) 1,250 mcg PO SA [facility] Last Admin: 01/18/22 05:26 Dose: Not Given Documented by: LARRY Non-Admin Reason: Patient currently on different floor Gabapentin (Gabapentin 100 Mg Capsule) 100 mg PO BID [facility] Last Admin: 01/22/22 08:30 Dose: 100 mg Documented by: CORINNE Glucose (Glucose Gel 15 Gm Gel..Gram.) 15 gm PO Q15M PRN; Protocol PRN Reason: per Hypoglycemia Standing Ord. Heparin Sodium (Porcine) (Heparin Sodium,Porcine 5,000 Unit/Ml Vial) 5,000 unit INTRACATH TUTHSA@1645 [facility] Last Admin: 01/20/22 17:44 Dose: 5,000 unit Documented by: COLTEN Insulin Human Lispro (Insulin Lispro 100 Unit/Ml 3 Ml Vial) 0 unit SUBCUT QIDACHS [facility]; Protocol Last Admin: 01/22/22 11:33 Dose: 2 unit Documented by: CORINNE Multivitamins/Vitamin C (Multivitamin Tablet) 1 tab PO DAILY [facility] Last Admin: 01/22/22 08:30 Dose: 1 tab Documented by: CORINNE Nystatin (Nystatin Powder 15 Gm Bottle) 1 appl TOPICAL BID [facility]; Protocol Last Admin: 01/22/22 08:33 Dose: 1 appl Documented by: CORINNE Pharmacy Consult (Consult Rx Perform Med Rec) 1 each MISCELLANE ONCE PRN PRN Reason: Consult order Sevelamer Carbonate (Sevelamer Carbonate Tablet 800 Mg Tablet) 1,600 mg PO TID [facility] Last Admin: 01/22/22 08:29 Dose: 1,600 mg Documented by: SIMEMA Sodium Chloride (0.9 % Sodium Chloride Flush 3 Ml Syringe) 3 ml IVFLUSH QSHIFT [facility] Last Admin: 01/22/22 08:30 Dose: 3 ml Documented by: CORINNE Labs CBC & Chem 7: 01/19/22 05:35 01/21/22 08:10 Labs: Laboratory Results - last 24 hr 01/21/22 01/21/22 01/22/22 16:07 20:17 07:12 POC Glucose 104 125 H 139 H 01/22/22 10:57 POC Glucose 172 H Assessment and Plan (1) Status post placement of cardiac pacemaker: Status: Acute (2) Symptomatic bradycardia: Status: Acute (3) ESRD on dialysis: Status: Acute Plan This is a 66-year-old male with history of ESRD on HD ([facility]), atrial fibrillation Eliquis, CHF, CAD chronic suprapubic catheter sent to the emergency department from dialysis due to hypotension and bradycardia with question syncope Syncope secondary to bradycardia and hypotension at dialysis Heart rate as low as 30s No evidence of hypotension since admission echo with preserved EF, grade II diastolic dysfunction, mild MR, TR, mild pulmonary hypertension likely secondary to bradycardia, inadequate ability to compensate for drop in bp at dialysis cardiology following s/p pacemaker placement 01/18 Chronic atrial fibrillation with slow ventricular response Not on any rate control meds; HR improved following PM placement Eliquis continued cardiology following Hypertension Given hypotensive episode at dialysis, will hold Norvasc (dose of norvasc recently decreased to 2.5) BP has been on lower side without BP meds Monitor blood pressure closely elevated troponin trops flat ekg with some new t wave inversions no chest pain echo as above cardiology following UTI Related to chronic suprapubic catheter No evidence of sepsis Seen by ID, Initially treated with Meropenem due to 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 Curiel suprapubic catheter fell out and was replaced yesterday with 18fr with 10cc balloon per urology rec recently started on gabapentin for ?component of neuropathic pain ESRD on HD ,, -nephrology following Right pleural effusion doesn't seem to be symptomatic at this time. not requiring supplemental oxygen may be secondary to heart failure in setting of bradycardia monitor respiratory status closely consider drainage if develops respiratory symptoms Diabetes Not on baseline meds HbA1c 6.0 -SSI, POCs small open coccyx wound and chronic skin changes. present on admission continue local wound care frequent position changes Patient requires continued hospitalization, he is medically cleared and awaiting short-term rehab placement Code status- full code HCP - Fili Chairez [phone], very involved and knowledgeable about medical history. Attending - Dr. Campbell Quality Stroke Does the patient have a stroke diagnosis?: No VTE Prior VTE?: No VTE Risk Level:: Medical - moderate - high VTE Device Contraindication: N/A - Device Ordered VTE Drug Contraindication: N/A - Med Ordered
[2022-01-22 16:25] LABS: Glucose, Whole Blood 107 mg/dL (60-115)
[2022-01-22 20:03] LABS: Glucose, Whole Blood 113 mg/dL (60-115)
[2022-01-23 04:08] VITALS: BP 100/66; PULSE 67; RESP 15; TEMP 36.5; O2SAT 98
[2022-01-23 06:49] LABS: Anion Gap 15 (12-20); Blood Urea Nitrogen 42 mg/dL (9-16); Calcium 8.4 mg/dL (8.4-10.2); Carbon Dioxide 19 mmol/L (22-29); Chloride 99 mmol/L (96-108); Creatinine Clr Calc Pharmacy 17.9; Estimated Glomerular Filt Rate 13; Glucose Random 145 mg/dL (60-115); Potassium 4.5 mmol/L (3.3-5.1); Sodium 128 mmol/L (135-145)
[2022-01-23 07:28] VITALS: BP 120/71; PULSE 73; RESP 18; TEMP 36.6; O2SAT 98
[2022-01-23 07:36] LABS: Glucose, Whole Blood 137 mg/dL (60-115)
[2022-01-23] MEDS: Cyanocobalamin (Vitamin B-12) 1,000 MCG TABLET 1000 MCG PO (08:04)
[2022-01-23] MEDS: Gabapentin 100 MG CAPSULE PO (08:04)
[2022-01-23] MEDS: Apixaban 2.5 MG TABLET PO (08:04)
[2022-01-23] MEDS: Multivitamin TABLET 1 TAB PO (08:04)
[2022-01-23] MEDS: Sevelamer Carbonate Tablet 800 MG TABLET 1600 MG PO (08:04)
[2022-01-23] MEDS: 0.9 % Sodium Chloride Flush 3 ML SYRINGE IVFLUSH (08:04)
[2022-01-23] MEDS: DULoxetine HCl 20 MG CAPSULE.DR PO (08:04)
[2022-01-23] MEDS: Nystatin Powder 15 GM BOTTLE 1 APPL TOPICAL (08:05)
[2022-01-23 08:51] VITALS: BP 120/71; PULSE 73; O2SAT 98
--- NOTE | 2022-01-23 09:09 | PM.DS ---
DS: Providers Provider Date of Service: 01/23/22 Date of admission: 01/15/22 17:57 Date of discharge: 01/23/22 Primary care physician: Biju Redd MD Consults: 01/15/22 17:57 Consult to Cardiology Routine Consulting Provider: Sivakumar Zendejas Reason for consultation: syncope Has provider been notified: No Consult to Nephrology Routine Consulting Provider: Satya Fritz Reason for consultation: ESRD on HD Has provider been notified: No 01/15/22 18:13 Consult to Infectious Diseases Routine Consulting Provider: Abigail Peraza Reason for consultation: UTI; h/o MDR pseudomonas; chronic suprapubic cath Has provider been notified: No Attending physician on discharge: Kermit Campbell Discharging clinician: Anahy Lowe DS: Diagnosis Discharge Diagnosis (1) Syncope: Status: Acute (2) Symptomatic bradycardia: Status: Acute (3) Status post placement of cardiac pacemaker: Status: Acute (4) ESRD on dialysis: Status: Acute (5) Atrial fibrillation with slow ventricular response: Status: Acute (6) Pleural effusion: Status: Acute DS: Summary Hospital Course Hospital Course: From H&P on day of admission ?This is a 66 with history of end-stage renal disease who was sent to the emergency.? Triage notes indicated the patient became hypotensive and bradycardic and was sent to the emergency department for evaluation.? On arrival his blood pressure was within normal limits.? The patient states that at dialysis he ?got shaky .? He said they leaned him back in his chair but he briefly lost consciousness.? He denies any shortness of breath, chest pain or dizziness prior.? He had approximately 1 hour of hemodialysis prior to this episode, dialysis was cut short and he was sent to the emergency department for evaluation.? He denies any previous history of syncope.? Lab work significant for leukocytosis 12.8 and otherwise unremarkable.? Chest x-ray showing moderate right pleural effusion, similar to prior examination.? EKG showing slow atrial fibrillation with heart rate 58, new T-wave inversions in leads 1 and aVL. No troponin was drawn but patient denies any chest pain. Urinalysis was consistent with UTI and he was given a dose of IV ceftriaxone.? A decision was made to admit him to the hospital for further management of note after speaking with HCP, patient did not feel well after HD on Wednesday and was seen in the ED at [facility]. His workup there was reportedly unremarkable and he was discharged home. Hospital course by problem: Syncope secondary to bradycardia and hypotension at dialysis. Heart rate as low as 30s? No evidence of hypotension since admission. echo with preserved EF, grade II diastolic dysfunction, mild MR, TR, mild pulmonary hypertension. Junctional bradycardia noted. He was seen in consultation by cardiology. Symptoms likely secondary to bradycardia, inadequate ability to compensate for drop in blood pressure at dialysis. Dual chamber pacemaker placed by Dr. Lawrence on 01/18/22. Placement of leads confirmed on CXR. Follow up with cardiology in 2 weeks for wound check and 6 weeks for device check. Chronic atrial fibrillation with slow ventricular response, Heart rate as low as 30s.? Not on any rate lowering medication. HR improved since placement of PM. Eliquis was held for procedure and then resumed with no evidence of bleeding. Radiation cystitis/Uretheral stricture/ Urinary retention, s/p suprapubic catheter (changed as outpatient on 01/13) followed by Dr. Curiel, suprapubic catheter fell out and was replaced yesterday with 18fr with 10cc balloon ESRD on HD ,, . Followed by nephrology during admission, last HD was 01/22. He maira continue his normal schedule for HD following discharge. small open coccyx wound and chronic skin changes. present on admission, continue local wound care, frequent position changes Hypertension. Given hypotensive episode at dialysis Norvasc was placed on hold. BP has been controlled without norvasc. Can follow up with PCP to determined need to resume. UA initially concerning for UTI especially in setting of suprapubic catheter. Seen by ID, Initially treated with Meropenem due to history of MDR Pseudomonas aeruginosa. However his urine culture grew mixed tomasz and abx were discontinued. BCx negative to date Radiation cystitis/Uretheral stricture/ Urinary retention. s/p suprapubic catheter (changed as outpatient on 01/13) followed by Dr. Curiel. suprapubic catheter fell out and was replaced yesterday with 18fr with 10cc balloon per urology recommendation 01/18. Right pleural effusion. Not symptomatic at this time. not requiring supplemental oxygen. Outpatient follow up. He was seen and evaluated by Physical therapy who recommended STF to improve strength and gait. The patient's vital signs have remained stable since PM placement and he is stable for discharge to SNF. Time Spent with Patient Time attestation: Total time spent providing and/or coordinating discharge services: Discharge coordination time: Greater than 30 minutes Quality: Stroke Does the patient have a stroke diagnosis?: No Physical Exam Vital Signs: Vital Signs: Last Vital Signs Temp 97.8 F 01/23/22 07:28 Pulse 73 01/23/22 08:51 Resp 18 01/23/22 07:28 BP 120/71 01/23/22 08:51 Pulse Ox 98 01/23/22 08:51 Oxygen Flow Rate 2 01/15/22 14:17 BMI result Body Mass Index 29.5 Const: General: cooperative, comfortable, no acute distress, alert and awake Nutritional Appearance: average body habitus Chest: Other: dialysis cath present right chest wall; PM left chest wall, clean and dry and intact dressing Resp: Other: diminished right base, otherwise clear to auscultation Effort & Inspection: normal respiratory effort and able to speak in complete sentences Cardio: Rhythm: abnormal rhythm GI: Inspection: No distended Palpation (GI): Soft to palpation and nontender : Other: Suprapubic catheter present Extrem: Other: no leg edema DS: Data Data Completed and Pending Completed studies during hospitalization [Text1]: Procedures Drainage of Right Pleural Cavity, Percutaneous Approach (11/20/21) Performance of Urinary Filtration, Intermittent, Less than 6 Hours Per Day (11/20/21) Transfusion of Nonautologous Red Blood Cells into Peripheral Vein, Percutaneous Approach (11/20/21) Labs on day of discharge: Laboratory Results - last 24 hr 01/22/22 01/22/22 01/22/22 10:57 16:22 19:59 Sodium Potassium Chloride Carbon Dioxide Anion Gap BUN Creatinine Estim Creat Clear Calc Estimated GFR POC Glucose 172 H 107 113 Random Glucose Calcium 01/23/22 01/23/22 06:20 07:30 Sodium 128 L Potassium 4.5 Chloride 99 Carbon Dioxide 19 L Anion Gap 15 BUN 42 H Creatinine 4.49 H* Estim Creat Clear Calc 17.9 Estimated GFR 13 POC Glucose 137 H Random Glucose 145 H Calcium 8.4 Discharge Plan Discharge Anticipated Discharge Date/Time: 01/23/22 09:08 Patient Disposition: Xfer SNF Discharge Diagnosis: 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 Referrals: [facility] [Outside] - 1 Week (REFERRAL TO INITIATE SERVICES FOLLOWING STR DISCHARGE ) [facility] [Outside] - 1 Week Wendy Martini, FAHEEM-C [Nurse Practitioner] - 2 Weeks (Wound check-up ) Biju Redd MD [Primary Care Provider] - 1 Week Discharge Medications: Continued acetaminophen 325 mg Tablet 650 mg PO Q6H PRN (Reason: Pain) 0RF cyanocobalamin (vitamin B-12) 1,000 mcg Tablet 1,000 mcg PO DAILY 0RF albuterol sulfate [ProAir HFA] 90 mcg/actuation Hfa Aerosol Inhaler 2 puff INHALATION Q6H PRN (Reason: Wheezing) 0RF insulin lispro 100 unit/mL Insulin Pen 1 sliding scale dose SUBCUT USEASDIRECTD 0RF Rx Instructions: 0-149: NONE 150-200: 4 UNITS 201-250: 6 UNITS 251-300: 8 UNITS 301-400: 10 UNITS 401-450: 12 UNITS duloxetine [Cymbalta] 20 mg Capsule,Delayed Release(Dr/Ec) 20 mg PO DAILY 0RF cholecalciferol (vitamin D3) 1,250 mcg (50,000 unit) capsule 1 cap PO SA 0RF sevelamer carbonate 800 mg Tablet 1,600 mg PO TID 0RF febuxostat [Uloric] 40 mg Tablet 40 mg PO DAILY 0RF Eliquis 2.5 mg Tablet 2.5 mg PO BID 0RF Isaura-Gabrielle 0.8 mg tablet 1 tab PO DAILY 0RF gabapentin 100 mg capsule 1 tab PO BID 0RF Discontinued amlodipine 2.5 mg tablet 1 tab PO DAILY 0RF Discharge Orders: Discharge Order (Routine); Ordered 01/23/22 Ordered By: Anahy Lowe Diet: advance to usual diet Activity on Discharge: No heavy lifting Stand Alone Forms: Patient Portal Discharge page Care Plan Goals: Take medications as prescribed Health Concerns: 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
--- NOTE | 2022-01-23 09:34 | MHC.CM.PN ---
Addendum entered by Lindsey Barry 01/23/22 12:48: FOLLOW UP IMM DELIVERED Addendum entered by Lindsey Barry 01/23/22 11:48: PT WILL DC TO [facility] STR TODAY AT 1330 PENDING NEGATIVE COVID-19 TEST RESULTS Original Note: CM MET WITH PT TO DISCUSS DC PLANNING. PT IS AWARE [facility] IS NOW OFFERING A BED. PT REPORTS BEING VERY HAPPY THIS IS ALSO WHERE HE GETS HIS HD OUTPATIENT PT REPORTS HE HAS ALREADY CALLED HIS HCP TO INFORM HER PT WILL DC TO [facility] TODAY AT 1330 HOURS VIA CHAIR VAN
--- NOTE | 2022-01-23 10:52 | MHC.INPTTRAN ---
alert and oriented. Remains weak. OOB with walker and assist. Shane diet. Pacemaker site clean and dry. Dsg intact. Had dialysis on . Due next on Wednesday. Has chronic suprapubic cath. Draining cloudy urine. Has stg 2 open area on coccyx with foam dsg for protection. Shane diet.
[2022-01-23 11:27] VITALS: BP 129/67; PULSE 68; RESP 18; TEMP 36.6; O2SAT 99
[2022-01-23 11:32] LABS: Glucose, Whole Blood 177 mg/dL (60-115)
--- NOTE | 2022-01-23 11:49 | PM.PNNEP ---
Subjective Subjective Date of Service: 03/16/22 Principal diagnosis: junctional bradycardia, s/p pacemaker Interval history: Events noted Physical Exam Vital Signs: Vital Signs: Last Vital Signs Temp 97.8 F 01/23/22 11:27 Pulse 68 01/23/22 11:27 Resp 18 01/23/22 11:27 BP 129/67 01/23/22 11:27 Pulse Ox 99 01/23/22 11:27 Oxygen Flow Rate 2 01/15/22 14:17 BMI result Body Mass Index 29.5 Const: General: comfortable and no acute distress HENMT: Head: Yes normocephalic Eyes: EOM: EOMs intact bilaterally Neck: Neck: Yes supple Chest: Other: Permcath right side of chest wall Resp: Auscultation: diminished lung sounds Cardio: Rate: regular rate GI: Palpation (GI): Soft to palpation : Other: Supra pubic catheter present Neuro: General: moves all extremities Objective Data Labs CBC & Chem 7: 01/19/22 05:35 01/23/22 06:20 Labs: Laboratory Results - last 24 hr 01/22/22 01/22/22 01/23/22 16:22 19:59 06:20 Sodium 128 L Potassium 4.5 Chloride 99 Carbon Dioxide 19 L Anion Gap 15 BUN 42 H Creatinine 4.49 H* Estim Creat Clear Calc 17.9 Estimated GFR 13 POC Glucose 107 113 Random Glucose 145 H Calcium 8.4 01/23/22 01/23/22 07:30 11:27 Sodium Potassium Chloride Carbon Dioxide Anion Gap BUN Creatinine Estim Creat Clear Calc Estimated GFR POC Glucose 137 H 177 H Random Glucose Calcium Microbiology Microbiology Results: Microbiology 01/15/22 14:48 Blood - Venous Blood Culture - Final No growth after 5 days. 01/15/22 14:41 Blood - Venous Blood Culture - Final No growth after 5 days. 01/15/22 16:47 Urine clean catch - Urine francis top Urine Culture - Final Procedures Date of Service Date of Service: 01/23/22 Assessment & Plan Assessment and plan (1) ESRD on dialysis: Assessment and Plan: Usually gets HD on TTS ( [facility]) Renal Diet; Phos binders with meals Antibiotics dosed for GFR May need Right Pl effusion drained Pacemaker Procrit 1999) TTS( ordered) Shall continue to closely follow up PT evaluation and DC planning - Home vs Rehab Time Spent With Patient Time: Total time spent is greater than 50% in coordination of care (as documented) at patient's floor/unit and/or counseling patient: Progress Note: Quality Stroke Does the patient have a stroke diagnosis?: No
[2022-01-23 13:03] LABS: COVID-19 Test Negative (Negative); IDNOW Serial# 55D5AD1C
== END 2022-01-23 13:48 | disposition skilled nursing facility (03) | DRG 981 ==
LOC: HO.ED 01-16 11:31 → HO.EDOVER 01-16 12:09 → HO.IMC 01-17 18:56
PROVIDERS: Internal Medicine Cardiovascular Disease; Nurse Practitioner Acute Care; Physician Assistant; Admitting Provider Physician Assistant Medical; Emergency Provider Emergency Medicine; PCP Internal Medicine; Visit Provider Physician Assistant Medical
PROC: 0JH606Z Insertion of Pacemaker, Dual Chamber into Chest Subcutaneous Tissue and Fascia, Open Approach (ICD-10-PCS; principal; 2022-01-18 12:00)
DX: T83.518A Infection and inflammatory reaction due to other urinary catheter, initial encounter (principal); N18.6 End stage renal disease; I50.33 Acute on chronic diastolic (congestive) heart failure; I13.2 Hypertensive heart and chronic kidney disease with heart failure and with stage 5 chronic kidney disease, or end stage renal disease; N39.0 Urinary tract infection, site not specified; I48.20 Chronic atrial fibrillation, unspecified; I25.10 Atherosclerotic heart disease of native coronary artery without angina pectoris; R00.1 Bradycardia, unspecified; I27.20 Pulmonary hypertension, unspecified; E11.22 Type 2 diabetes mellitus with diabetic chronic kidney disease; L89.152 Pressure ulcer of sacral region, stage 2; I08.1 Rheumatic disorders of both mitral and tricuspid valves; R33.9 Retention of urine, unspecified; Z20.822 Contact with and (suspected) exposure to COVID-19; Z95.0 Presence of cardiac pacemaker; Z99.2 Dependence on renal dialysis; Z79.4 Long term (current) use of insulin; Z79.01 Long term (current) use of anticoagulants; Z79.899 Other long term (current) drug therapy
CPT/HCPCS: 36415; 71045; 80048; 80053; 81001; 82947; 83036; 83605; 83735; 83880; 84484; 85025; 85027; 85610; 85730; 87040; 87086; 87635; 90999; 93005; 93306; 96365; 96375; 97110; 97116; 97162; 97166; 97535; 99285; 99291; C1785; C1892; C1898; J0696; J1100; J1940; J1956; J2185; J2250; J2405; J3010; J3370; Q9967

== ENCOUNTER 2022-02-06 23:00 | Outpatient (REF) | payer SELFPAY ==
[2022-02-07 11:44] LABS: Appearance Urine CLOUDY; Color Urine YELLOW; Glucose Urine UA NEG (NEG); Leukocyte Esterase Urine 2+ (NEG); Nitrite Urine NEG (NEG); UACC Culture Trigger YES; Urine Blood 3+ (NEG); Urine Ketones NEG (NEG); Urine Protein 3+ MG/DL (NEG-TRACE)
[2022-02-07 11:51] LABS: Squamous Epithelial Cell Urine TRACE /LPF; WBC Urine TNTC /HPF (0-4)
[2022-02-07 11:52] LABS: Amorphous Sediment Urine 1+ /LPF; Bacteria Urine 1+ /LPF
== END 2022-02-06 23:01 | disposition home or self-care (01) ==
LOC: HO.LNP 23:00
PROVIDERS: Visit Provider Family Medicine
DX: R30.0 Dysuria (principal)
CPT/HCPCS: 81001; 87086

== ENCOUNTER 2022-02-07 11:25 | Outpatient (REF) | payer SELFPAY | END 2022-02-07 11:26 | disposition home or self-care (01) | LOC: HO.LNP 11:25 | PROVIDERS: Visit Provider Family Medicine | DX: Z13.89 Encounter for screening for other disorder (principal) ==

== ENCOUNTER → 2022-02-23 12:25 | Outpatient (BNVA) | payer MEDICARE, MEDICAID, SELFPAY | PROVIDERS: PCP Internal Medicine; Visit Provider Internal Medicine | DX: Z45.018 Encounter for adjustment and management of other part of cardiac pacemaker (principal); I48.19 Other persistent atrial fibrillation; R00.1 Bradycardia, unspecified | CPT/HCPCS: 99212 ==